=== PATIENT | female | born 1995 | race Caucasian/White ===

== ENCOUNTER 2016-03-09 13:21 | Inpatient (IN) | payer MEDICAID, OTHER ==
[~2016-03-09] VITALS: Ht 167.6 cm; Wt 75.1 kg
[~2016-03-09 13:21] MED LIST: BENZ1TA PO; CELE20TA PO; RISP-4 PO; RISP0.5T16 PO; RISP1TAB3 PO; TRAZO50TA PO
[2016-03-09 14:50] LABS: MEAN CORPUSCULAR HEMOGLOBIN 29.2 pg (27.0-33.0); MEAN CORPUSCULAR HGB CONC 33.9 g/dl (32.0-36.5); MEAN CORPUSCULAR VOLUME 86.2 fl (80.0-96.0); RED CELL DISTRIBUTION WIDTH 12.8 % (11.5-14.5); WHITE BLOOD COUNT 7.8 K/mm3 (4.0-10.0)
[2016-03-09 14:53] LABS: CONTROL LINE UCG INT CTR LINE PRESENT
[2016-03-09 15:00] LABS: AMPHETAMINES LEVEL URINE NEGATIVE (NEGATIVE); BENZODIAZEPINES URINE NEGATIVE (NEGATIVE); COCAINE METABOLITE URINE NEGATIVE (NEGATIVE); CONTROL LINE INT CTR LINE PRESENT; METHADONE URINE NEGATIVE (NEGATIVE); OPIATES URINE NEGATIVE (NEGATIVE); TRICYCLIC ANTIDEPRESS URINE NEGATIVE (NEGATIVE)
[2016-03-09 15:18] LABS: ALBUMIN 3.7 GM/DL (3.2-5.2); ALBUMIN/GLOBULIN RATIO 1.28 (1.00-1.93); ALKALINE PHOSPHATASE 69 U/L (45-117); ALT/SGPT 44 U/L (12-78); ANION GAP 9 MEQ/L (8-16); AST/SGOT 26 U/L (15-37); BILIRUBIN,DIRECT 0.1 MG/DL (0.0-0.2); BILIRUBIN,TOTAL 0.3 MG/DL (0.2-1.0); BLOOD UREA NITROGEN 10 MG/DL (7-18); CALCIUM LEVEL 8.9 MG/DL (8.5-10.1); CARBON DIOXIDE LEVEL 26 MEQ/L (21-32); CHLORIDE LEVEL 108 MEQ/L (98-107); CREATININE FOR GFR 0.86 MG/DL (0.55-1.02); GLUCOSE, FASTING 120 MG/DL (70-105); POTASSIUM SERUM 3.9 MEQ/L (3.5-5.1); SODIUM LEVEL 143 MEQ/L (136-145); TOTAL PROTEIN 6.6 GM/DL (6.4-8.2)
[2016-03-09] MEDS ORDERED: MOM 30ML SUSPENSION UDC PO PRN (16:30)
[2016-03-09] MEDS ORDERED: MAALOX 30 ML SUSP *UDC PO PRN (16:30)
[2016-03-09] MEDS ORDERED: TRAZ50TA4 PO (16:37)
[2016-03-09] MEDS ORDERED: CELE20TA PO (16:37)
[2016-03-09] MEDS ORDERED: BENZ1TA PO (16:37)
[2016-03-09] MEDS ORDERED: RISP1TAB3 PO (16:37)
--- NOTE | 2016-03-09 21:52 | EDDOCDS ---
Nurse's Notes [facility] Name: Noris Galdamez Age: 20 yrs Sex: Female : 1995 Arrival Date: 03/09/2016 Time: 13:21 Bed [facility] Private MD: NO PRIMARY PHYSICIAN, . Diagnosis: Major depressive disorder, recurrent, severe with psychotic symptoms Presentation: 03/09 13:25 Presenting complaint: Patient states: discharged from [facility] yesterday and last night srm became scared of the world. denies SI or HI. overwhelmed. I need help to transition to happy thoughts and not bad thoughts. has appt with outpt counselor on the and . Mental Health Triage Level: Level 1- Pt displays no suicidal or homicidal ideations and does not appear to be a danger to self or others. Adult Sepsis Screening: The patient does not have new or worsening altered mentation. Patient's respiratory rate is less than 22. Systolic blood pressure is greater than 100. Patient has a qSOFA score of 0- Negative Sepsis Screen. Status: Patient is not a steam service inspector or dependent. Suicide/Homicide risk assessment- The patient reports that he/she has been admitted to an inpatient mental health facility in the last 30 days. The patient reports that he/she has a recent or current history of substance abuse. The patient reports that he/she has no prior history of suicide attempt and/or organized plan. The patient reports that he/she has experienced a significant life altering event in the last 30 days. The patient reports that he/she has adequate social support. Transition of care: patient was not received from another setting of care. 13:25 Acuity: ZEINA Level 3 srm 13:25 Method Of Arrival: Walkin/Carried/Asstd srm 13:33 Mental Health Triage Level: Level 2:. srm Triage Assessment: 13:29 General: Appears in no apparent distress, Behavior is appropriate for age, cooperative. srm Pain: Denies pain. HIV screening NA for this visit Offered previously. 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 benztropine 1 mg Oral tab 1 tab 2 times per day (Last dose: 03/09/2016 07:30) 2. Celexa 20 mg Oral tab 1 tab once daily (Last dose: 03/09/2016 07:30) 3. risperidone oral 1.5mg oral 2 times per day (Last dose: 03/09/2016 07:30) 4. trazodone 50 mg Oral tab bedtime - PMHx: Depression; - PSHx: none; - Social history: Smoking status: Patient states former smoker of tobacco. No barriers to communication noted, The patient speaks fluent Gambian, Speaks appropriately for age. - Family history: Not pertinent. - : The pt / caregiver states he / she is not on anticoagulants. Home medication list is obtained from the patient. - Exposure Risk Screening:: None identified. Screenin:43 Screening information is obtained from the patient. Fall risk: No risks identified. mcp Assistance ADL's: requires no assistance with activities of daily living. Abuse/DV Screen: The patient / caregiver reports he/she is: not in a situation that causes fear, pain or injury. Nutritional screening: No deficits noted. Advance Directives: Currently, there is no health care proxy. There is no active DNR order. There is no Power of Swimming Pool Service Technician. home support is adequate. Assessment: 13:32 General: akilah FRANKLIN, mom called [facility] this am in a panic that the pt was up srm all night talking and not making a lot of sense . 14:42 General: Appears in no apparent distress, comfortable, Behavior is cooperative, mcp pleasant. Pain: Denies pain. Neurological: No deficits noted. Respiratory: Airway is patent Respiratory effort is even, unlabored. Derm: Skin is pink, warm & dry. 15:02 General: Appears in no apparent distress, Behavior is cooperative. Pain: Denies pain. ld5 Neurological: Level of Consciousness is awake, obeys commands. Respiratory: Airway is patent Respiratory effort is even, unlabored. GI: Denies nausea, vomiting. Derm: Skin is intact, Skin is dry. 16:00 General: Appears in no apparent distress. General: Pt laying quietly in bed. Visitor at ld5 bedside. Will continue to monitor. Respiratory: Airway is patent Respiratory effort is even, unlabored. 16:59 General: Appears in no apparent distress. General: Safety maintained. Will continue to ld5 monitor. Respiratory: Airway is patent Respiratory effort is even, unlabored. 17:08 General: Family members in to visit pt. ld5 18:18 General: Pt out to use bathroom. Dinner tray provided. Will continue to monitor. ld5 18:24 General: Pt requesting to use phone. Pt given phone and pt returned to room. Several ld5 minutes later, pt out of room with phone in hand. This RN asked pt if she was done with the phone. Pt stared without responding for several seconds and then stated "I can't. I just can't be done with it" and returned to room with the phone. Will monitor. 20:00 General: Appears in no apparent distress, comfortable, Behavior is cooperative, rw1 pleasant. Pain: Denies pain. Neurological: Level of Consciousness is awake, alert, obeys commands, Oriented to person, place, time. Respiratory: Airway is patent Respiratory effort is even, unlabored. Derm: Skin is pink, warm & dry. normal. 20:58 Reassessment: Patient appears in no apparent distress at this time. awake resting on rw1 stretcher, safety maintained will monitor.. 21:48 Reassessment: Patient appears in no apparent distress at this time. Patient denies pain rw1 at this time. awake resting on stretcher, safety maintained. Mental Health Eval: 16:07 Mental health consult is initiated at 15:20. Status: The patient is not a steam service inspector or dependent. 16:18 [facility] Behavioral Health: The patient is not an established patient of [facility] Behavioral Health. Referral Information: Evaluation referral is generated by a relative; mother, The patient was referred for evaluation because Pt d/c yesterday from [facility], states she feels she was discharged too soon. Pt states she "had bad thoughts, now I can only have positive thoughts, I don't want to think about the past . 16:30 Subjective: The patients chief complaint is I got out too soon. everything has been ac kind of overwhelming. Per parents, pt became agitated, felt mother was responsible for something that was supposed to occur on March 13 that won't happen now. Delusions are restoration, paranoid, Patient's mood is anxious, Hallucinations are denied. Mental Health history: psychosis, Mental Health Admissions: [facility] , d/c 03/08. Current Outpatient Mental Health Services: Psychiatrist / Agency: Cortney Dewitt at [facility] on 03-15-16. Current living environment is The patient currently lives with his / her parents, and younger siblings. Patient presents to Emergency Department with the following symptoms within the past 2 weeks: agitation, delusions of reference, depressed mood, poor concentration, poor impulse control, psychosis. Substance abuse: Pt denies. Mental status exam: Patients appearance is appropriate, Patient's behavior is cooperative, Speech is normal. 17:58 Disposition: Medically cleared for disposition by Andreas Mohamud Psychiatric Consult is ac performed by phone with Dr Andreas Mohamud. [facility] Admission Criteria: The patient is experiencing suicidal ideation. The patient displays symptoms of severe psychiatric disorder resulting in disordered behavior and significant interference with his / her ability to maintain self care. Delusions. The patient requires continuous observation and/or control to protect self, others or property. The patient's care requires a multi-modal treatment plan under close supervision and coordination due to the complexity and severity of the patient's symptoms. The patient requires administration and monitoring of psychoactive medications by skilled medical providers due to the side effects of the psychoactive medications or significant dosage adjustments. Legal Status: Patient's legal status will be Emergency admission: . [place] because patient was registered less than 6 months ago. DSM-V Differential Diagnosis: Unspecified Psychotic Disorder (F29). Narrative: Pt presented with mother requesting to be re-admitted to [facility] due to pt continuing to express delusional thinking. Pt states that "something" is going to happen on 03-13 and that she has to be out of the hospital to save the world. pt will not further elaborate. Pt states she "will only think about good thoughts in the future, not bad thoughts from the past, because the past is past and we can't change it. If I think about it, I'll start thinking bad thoughts again. Pt is poor historian, simply refuses to answer some questions, will answer other questions only minimally. Per pt's mother, pt told that she had tried to kill herself twice while she was inpatient; first by stabbing herself in the neck with a pencil, and second by strangling herself with a wet towel. Mother states this was not disclosed to [facility] staff. 18:42 Narrative: Pt states that the two incidents described above occurred one and two weeks ac prior to her hospitalization. Pt is insistent she talk to her friends, Tejal and Clayton Metzger, because otherwise the world will end on March 13. Pt's mother also states that pt has identified herself as lesbian for at least the last two years, has been sexually active, and now is telling them that she "has to have sex with Clayton or the world will end". Pt states preferred pharmacy is: [facility] in [place]. Vital Signs: 13:23 BP 143 / 78; Pulse 87; Resp 18; Temp 97.3; Pulse Ox 100% ; Weight 70.76 kg; Height 5 elp ft. 6 in. (167.64 cm); Pain 0/10; 17:18 BP 138 / 72; Pulse 81; Resp 18; Temp 97.1; Pulse Ox 100% on R/A; ld5 21:48 BP 138 / 82; Pulse 68; Resp 18; Temp 97.5(O); Pulse Ox 100% on R/A; Pain 0/10; rw1 13:23 Body Mass Index 25.18 (70.76 kg, 167.64 cm) elp Vitals: 13:23 Log In Time: March 09, 2016 at 13:21. RN notified that patient meets Red Flag elp criteria. ED Course: 13:22 Patient visited by Adrianna Romo PCA. elp 13:22 Patient moved to Waiting elp 13:23 NO PRIMARY PHYSICIAN, . is Private Physician. elp 13:24 Patient visited by Adrianna Romo PCA. elp 13:27 Triage Initiated srm 13:29 Patient moved to [facility] srm 13:32 Pebbles Mejia FNP is PHCP. le 13:42 Patient visited by Igor Ibarra. dpm 13:42 Pt greeted and oriented to ED. Patient advised of names of staff involved in care, dpm location of call velasquez, wait times and NPO status. Patient has correct armband on for positive identification. Placed in gown. Placed in psych safe attire. Bed in low position. Security observing. Property waiting for a female staff to observed pt while changing. . Door closed. Noise minimized. Visitors limited. Lights dimmed. Moved to private room. Psych Safety Check: Location: Psych Room. Visual Assessment: Cooperative. 13:46 Patient visited by Igor Ibarra. dpm 13:57 Patient visited by Pebbles Mejia FNP. le 14:03 Patient visited by Igor Ibarra. dpm 14:16 Patient visited by Igor Ibarra. dpm 14:16 Property removed, inventory done, secured in given to family member, mother. dpm 14:29 Patient visited by Igor Ibarra. dpm 14:38 Acetaminophen Level Sent. dpm 14:38 Basic Metabolic Profile Sent. dpm 14:38 Complete Blood Count Sent. dpm 14:38 Drug Eval Toxicology ED Only Sent. dpm 14:38 Ethyl Alcohol (ethanol) Sent. dpm 14:38 Liver Profile Sent. dpm 14:38 Salicylate Level Sent. dpm 14:38 Thyroid Stimulating Hormone Sent. dpm 14:38 Urine Test-In Lab Sent. dpm 14:43 Patient visited by Lauren Abbott RN. mcp 14:43 The patient / caregiver is instructed regarding the plan of care and ED course. mcp 14:43 No IV's were initiated during this patient's visit. No procedures done that require [facility] assistance. 14:58 Patient visited by Igor Ibarra. dpm 15:13 Patient visited by Igor Ibarra. dpm 15:28 Patient visited by Igor Ibarra. dpm 15:39 [facility] Payment Agreement was scanned into [employer] and attached to record. mm15 15:41 Patient visited by Cuca Klein RN. ld5 15:56 Patient visited by Igor Ibarra. dpm 16:11 Patient visited by Igor Ibarra. dpm 16:13 Patient visited by Cuca Klein RN. ld5 16:27 Patient visited by Igor Ibarra. dpm 16:40 Patient visited by Igor Ibarra. dpm 16:45 Andreas Mohamud is Hospitalizing Provider. le 17:00 Patient visited by Cuca Klein RN. ld5 17:15 Patient visited by Igor Ibarra. dpm 17:28 Patient visited by Igor Ibarra. dpm 17:45 Patient visited by Igor Ibarra. dpm 17:59 Patient visited by Igor Ibarra. dpm 17:59 [facility] Legal paperwork was scanned into [employer] and attached to record. jl 18:15 Patient visited by Igor Ibarra. dpm 18:18 Patient visited by Cuca Klein RN. ld5 18:19 [facility] Legal paperwork was scanned into [employer] and attached to record. jl 18:26 Patient visited by Cuca Klein RN. ld5 18:50 Patient visited by Igor Ibarra. dpm 19:02 Patient visited by Igor Ibarra. dpm 19:15 George Ruff LPN is Primary Nurse. rw1 19:19 Patient visited by Igor Ibarra. dpm 19:31 Patient visited by Kris Méndez. tr 19:45 Patient visited by Kris Méndez. tr 20:01 Patient visited by George Ruff LPN. rw1 20:29 Patient visited by Kris Méndez. tr 21:01 Patient visited by Kris Méndez. tr 21:15 Patient visited by Kris Méndez. tr 21:31 Patient visited by Kris Méndez. tr Attachments: 18:19 [facility] Legal paperwork jl Order Results: Lab Order: Acetaminophen Level; [facility]' 03/09/16 14:34 Test: ACETAMINOPHEN LEVEL; Value: < 2.0; Range: 10.0-30.0; Abnormal: Below low normal; Units: UG/ML; Status: F Lab Order: Basic Metabolic Profile; [facility] 03/09/16 14:34 Test: GLUCOSE, FASTING; Value: 120; Range: 70-105; Abnormal: Above high normal; Units: MG/DL; Status: F Test: BLOOD UREA NITROGEN; Value: 10; Range: 7-18; Units: MG/DL; Status: F Test: CREATININE FOR GFR; Value: 0.86; Range: 0.55-1.02; Units: MG/DL; Status: F Test: SODIUM LEVEL; Value: 143; Range: 136-145; Units: MEQ/L; Status: F Test: POTASSIUM SERUM; Value: 3.9; Range: 3.5-5.1; Units: MEQ/L; Status: F Test: CHLORIDE LEVEL; Value: 108; Range: 98-107; Abnormal: Above high normal; Units: MEQ/L; Status: F Test: CARBON DIOXIDE LEVEL; Value: 26; Range: 21-32; Units: MEQ/L; Status: F Test: ANION GAP; Value: 9; Range: 8-16; Units: MEQ/L; Status: F Test: CALCIUM LEVEL; Value: 8.9; Range: 8.5-10.1; Units: MG/DL; Status: F Lab Order: Complete Blood Count; [facility] 03/09/16 14:34 Test: WHITE BLOOD COUNT; Value: 7.8; Range: 4.0-10.0; Units: K/mm3; Status: F Test: RED BLOOD COUNT; Value: 4.51; Range: 4.00-5.40; Units: M/mm3; Status: F Test: HEMOGLOBIN; Value: 13.2; Range: 12.0-16.0; Units: g/dl; Status: F Test: HEMATOCRIT; Value: 38.9; Range: 36.0-47.0; Units: %; Status: F Test: MEAN CORPUSCULAR VOLUME; Value: 86.2; Range: 80.0-96.0; Units: fl; Status: F Test: MEAN CORPUSCULAR HEMOGLOBIN; Value: 29.2; Range: 27.0-33.0; Units: pg; Status: F Test: MEAN CORPUSCULAR HGB CONC; Value: 33.9; Range: 32.0-36.5; Units: g/dl; Status: F Test: RED CELL DISTRIBUTION WIDTH; Value: 12.8; Range: 11.5-14.5; Units: %; Status: F Test: PLATELET COUNT, AUTOMATED; Value: 272; Range: 150-450; Units: k/mm3; Status: F Lab Order: Drug Eval Toxicology ED Only; [facility] 03/09/16 14:34 Test: AMPHETAMINES LEVEL URINE; Value: NEGATIVE; Range: NEGATIVE; Status: F Test: BARBITURATES URINE; Value: NEGATIVE; Range: NEGATIVE; Status: F Test: BENZODIAZEPINES URINE; Value: NEGATIVE; Range: NEGATIVE; Status: F Test: CANNABINOIDS URINE; Value: NEGATIVE; Range: NEGATIVE; Status: F Test: COCAINE METABOLITE URINE; Value: NEGATIVE; Range: NEGATIVE; Status: F Test: METHADONE URINE; Value: NEGATIVE; Range: NEGATIVE; Status: F Test: OPIATES URINE; Value: NEGATIVE; Range: NEGATIVE; Status: F Test: TRICYCLIC ANTIDEPRESS URINE; Value: NEGATIVE; Range: NEGATIVE; Status: F Test Note: ; ALL PRESUMPTIVE POSITIVE FINDINGS ARE UNCONFIRMED NORMAL VALUES THRESHOLD IN NG/ML AMPHETAMINES 1000 METHAMPHETAMINES 1000 BARBITURATES 300 BENZODIAZEPINES 300 CANNABINOIDS (THC) 50 COCAINE METABOLITE 300 METHADONE 300 OPIATES 300 PHENCYCLIDINE 25 TRICYCLIC ANTIDEPRESSANTS 1000 RESULTS ARE FOR MEDICAL PURPOSES ONLY. ALL URINE SPECIMENS WILL BE SAVED FOR 3 DAYS. IF CONFIRMATION OF A PRESUMPTIVE POSTIVE SCREEN RESULT IS DESIRED, CALL CHEMISTRY ([phone]) AND REQUEST URINE TO BE SENT TO REFERENCE LAB. FOR A LIST OF CLOSELY RELATED COMPOUNDS PLEASE CALL THE LAB. Lab Order: Ethyl Alcohol (ethanol); [facility] 03/09/16 14:34 Test: ETHYL ALCOHOL (ETHANOL); Value: < 0.003; Range: 0.000-0.010; Units: %; Status: F Lab Order: Liver Profile; [facility] 03/09/16 14:34 Test: AST/SGOT; Value: 26; Range: 15-37; Units: U/L; Status: F Test: ALT/SGPT; Value: 44; Range: 12-78; Units: U/L; Status: F Test: ALKALINE PHOSPHATASE; Value: 69; Range: 45-117; Units: U/L; Status: F Test: BILIRUBIN,TOTAL; Value: 0.3; Range: 0.2-1.0; Units: MG/DL; Status: F Test: BILIRUBIN,DIRECT; Value: 0.1; Range: 0.0-0.2; Units: MG/DL; Status: F Test: TOTAL PROTEIN; Value: 6.6; Range: 6.4-8.2; Units: GM/DL; Status: F Test: ALBUMIN; Value: 3.7; Range: 3.2-5.2; Units: GM/DL; Status: F Test: ALBUMIN/GLOBULIN RATIO; Value: 1.28; Range: 1.00-1.93; Status: F Lab Order: Salicylate Level; [facility] 03/09/16 14:34 Test: SALICYLATE LEVEL; Value: < 1.7; Range: 5.0-30.0; Abnormal: Below low normal; Units: MG/DL; Status: F Lab Order: Thyroid Stimulating Hormone; [facility] 03/09/16 14:34 Test: THYROID STIMULATING HORMONE; Value: 0.814; Range: 0.463-3.98; Units: uIU/ML; Status: F Lab Order: Urine Test-In Lab; [facility] 03/09/16 14:34 Test: URINE PREG TEST; Value: NEGATIVE; Range: NEGATIVE; Status: F Outcome: 16:45 Decision to Hospitalize by Provider. le 17:08 No special radiology studies were completed. ld5 20:01 Discharge Assessment: patient administered narcotics -. rw1 21:48 Discharge Assessment: Patient awake, alert and oriented x 3. No cognitive and/or rw1 functional deficits noted. Patient verbalized understanding of disposition instructions. patient administered narcotics - no. The following High Risk Discharge criteria are identified: Admitted to Psych accompanied by tech, via wheelchair, with chart. Condition: stable. 21:51 Patient left the ED. rw1 Signatures: Tayla Kelly, RN RN Lauren Kaye RN Robby Espinoza mcp, PSA PSA ac Evans Storm, PSA PSA Kris Pena Robert, LPN LEATHER GOODS SALES REPRESENTATIVE rw1 Pebbles Mejia, SOCIAL WORKER PSYCHIATRIC SOCIAL WORKER PSYCHIATRIC Cuca Covarrubias RN RN ld5 Igor Ibarra dpBrodie Rincon mm15 Adrianna Romo, CITY PLANNER CITY PLANNER elp Corrections: (The following items were deleted from the chart) 17:57 16:18 Referral Information: Evaluation referral is generated by a relative; mother, The ac patient was referred for evaluation because Pt d/c yesterday from [facility], states she . ac 18:26 17:18 BP 138 / 72; Pulse 81bpm; Resp 1bpm; Pulse Ox 100% RA; Temp 97.1F; ld5 ld5 MTDD
--- NOTE | 2016-03-09 21:52 | EDDOCDS ---
Physician Documentation [facility] Name: Noris Galdamez Age: 20 yrs Sex: Female : 1995 Arrival Date: 03/09/2016 Time: 13:21 Bed BHU1 Private MD: NO PRIMARY PHYSICIAN, . Disposition: 03/09/16 16:45 Hospitalization ordered by Andreas Mohamud for Inpatient Admission. Preliminary diagnosis is Major depressive disorder, recurrent, severe with psychotic symptoms. - Bed requested for Admit. - Status is Inpatient Admission. rw1 - Condition is Stable. - Problem is an acute exacerbation. - Symptoms are unchanged. Historical: - Allergies: no known allergies; - Home Meds: 1. benztropine 1 mg Oral tab 1 tab 2 times per day (Last dose: 03/09/2016 07:30) 2. Celexa 20 mg Oral tab 1 tab once daily (Last dose: 03/09/2016 07:30) 3. risperidone oral 1.5mg oral 2 times per day (Last dose: 03/09/2016 07:30) 4. trazodone 50 mg Oral tab bedtime - PMHx: Depression; - PSHx: none; - Social history: Smoking status: Patient states former smoker of tobacco. No barriers to communication noted, The patient speaks fluent Greenlandic, Speaks appropriately for age. - Family history: Not pertinent. - : The pt / caregiver states he / she is not on anticoagulants. Home medication list is obtained from the patient. - Exposure Risk Screening:: None identified. BAR TURNER: 03/09 13:29 LMP 02/24/2016 srm Vital Signs: 13:23 BP 143 / 78; Pulse 87; Resp 18; Temp 97.3; Pulse Ox 100% ; Weight 70.76 kg / 156 lbs; elp Height 5 ft. 6 in. (167.64 cm); Pain 0/10; 17:18 BP 138 / 72; Pulse 81; Resp 18; Temp 97.1; Pulse Ox 100% on R/A; ld5 21:48 BP 138 / 82; Pulse 68; Resp 18; Temp 97.5(O); Pulse Ox 100% on R/A; Pain 0/10; rw1 13:23 Body Mass Index 25.18 (70.76 kg, 167.64 cm) elp MDM: 13:58 Consult PFS/PSA/Family Assessment Worker ordered. le 13:58 Consult PFS/PSA/Family Assessment Worker: Patient's case requires discussion with on-call le Psychiatrist ordered. 13:58 PSA/PFS to call Nursing Forest And Conservation Worker, to enter patient data on [place] Safe Act if patient le involuntarily admitted or transferred for SI or HI ordered. 13:58 Confirm accurate psychiatric medication list and times of last dosage ordered. le 13:58 Detain Pt Until Medically/PFS Cleared ordered. le 13:58 Acetaminophen Level Ordered. EDMS 13:58 Basic Metabolic Profile Ordered. EDMS 13:58 Complete Blood Count Ordered. EDMS 13:59 Drug Eval Toxicology ED Only Ordered. EDMS 13:59 Ethyl Alcohol (ethanol) Ordered. EDMS 13:59 Liver Profile Ordered. EDMS 13:59 Salicylate Level Ordered. EDMS 13:59 Thyroid Stimulating Hormone Ordered. EDMS 13:59 Urine Test-In Lab Ordered. EDMS 14:28 Financial registration complete. mm15 15:31 Acetaminophen Level Reviewed. le 15:31 Basic Metabolic Profile Reviewed. le 15:31 Salicylate Level Reviewed. le 15:31 Complete Blood Count Reviewed. le 15:31 Drug Eval Toxicology ED Only Reviewed. le 15:31 Ethyl Alcohol (ethanol) Reviewed. le 15:31 Liver Profile Reviewed. le 15:31 Thyroid Stimulating Hormone Reviewed. le 15:31 Urine Test-In Lab Reviewed. le 15:31 The patient has been medically cleared for psychiatric evaluation, admission and/or le transfer. 15:39 [facility] Payment Agreement was scanned into [employer] and attached to record. mm15 15:45 REGULAR DIET PLASTIC BELL+DIET ordered. EDMS 16:31 Admit to [facility]: ordered. EDMS 16:31 BED REQUEST+ADM ordered. EDMS 17:05 Consult PFS/PSA/Family Assessment Worker complete. ld5 17:05 Consult PFS/PSA/Family Assessment Worker: Patient's case requires discussion with on-call ld5 Psychiatrist complete. 17:05 PSA/PFS to call Nursing Forest And Conservation Worker, to enter patient data [place] if patient ld5 involuntarily admitted or transferred for SI or HI complete. 17:59 [facility] Legal paperwork was scanned into [employer] and attached to record. jl 18:19 [facility] Legal paperwork was scanned into [employer] and attached to record. jl Signatures: Dispatcher [employer] EDMS Tayla Kelly, RN RN srm Dotty, Evans, PSA PSA jl George Ruff,BRAKE REPAIR MECHANIC BRAKE REPAIR MECHANIC rw1 Pebbles Mejia, COLLECTION SYSTEMS FOREMAN COLLECTION SYSTEMS FOREMAN Cuca Covarrubias,JOSE L RN ld5 Brodie Alejandre mm15 The chart was reviewed and I authenticate all verbal orders and agree with the evaluation and treatment provided.Corrections: (The following items were deleted from the chart) 18:18 16:31 REGULAR DIET ordered. EDMS EDMS Attachments: 15:39 [facility] Payment Agreement mm15 MTDD
[2016-03-09 21:56] VITALS: BP 145/87
[2016-03-09] MEDS: BENZTROPINE 2 MG TAB PO SCH (22:34)
[2016-03-09] MEDS: risperiDONE 2 MG TAB PO SCH (22:34)
[2016-03-10 06:49] VITALS: BP 132/61
[2016-03-10] MEDS: risperiDONE 2 MG TAB PO SCH (08:15)
[2016-03-10] MEDS: CitaloPRAM (CeleXA) 20 MG TAB PO SCH (08:15)
[2016-03-10] MEDS: BENZTROPINE 2 MG TAB PO SCH ×2 (08:15→23:04)
--- NOTE | 2016-03-10 10:01 | HPEPDOC ---
Medical History and Physical Date of Admission Mar 09, 2016 at 22:06 History and Physical PCP: None ATTENDING: Dr. Bryant Hickey HPI: 20yoF admitted to [facility] for MDD, being medically examined today. No acute medical complaints today. Patient was recently discharged from [facility] following treatment for MDD from 02/28/16 -03/08/16. She has a difficult time providing history but answers all questions. She is slow to answer questions. Denies any fevers, chills, weakness, fatigue, DIEZ, CP, SOB, cough, palpitations, abdominal pain, N/V/D or changes in bowel or bladder habits. PMHx: Depression CT Brain 03/01/16 no intracranial lesion. PSHX: Denies SOCHX: Resides in: [place] Marital Status: Single Kids: None Employment: [employer] Tobacco use: Denies ETOH: Denies Illicit Drugs: Marijuana 2-3 times per week, LSD 1 in past IV Drug Use: Denies Tattoos done unprofessionally: Denies FAMHX: Mother: Alive, well Father: Alive, well Siblings: 3 sisters Alive, well Children: None Unexpected deaths due to medical reasons: None. ROS: As noted in HPI, otherwise 11pt ROS of systems reviewed and remarkable only for LMP 02/24/16 PE: GEN: 20 yo F, appears stated age. Well-nourished, well developed. No acute distress. Alert and oriented x 3. Teary at times during examination. Requesting a phone number for "Clayton". HEENT: Normocephalic, atraumatic. Pupils are equal, round, and reactive to light. Extraocular movements are intact. No nystagmus appreciated. Sclera are nonicteric. Conjunctiva without injection. Nose midline. Nasal turbinates without bogginess. EACs both patent BL. TMs both visualized and collier with good cone of light, no bulging or erythema. No facial asymmetry. Moist mucous membranes. Dentition fair. Pharynx pink and moist, no cobblestoning. Neck supple , trachea midline. No lymphadenopathy or thyromegaly appreciated. CHEST: Regular rate and rhythm, +S1, +S2 LUNGS: Clear to auscultation bilaterally. No wheezes, rales, or rhonchi. Breathing appears symmetric and easy. Patient is speaking in full sentences. No accessory muscle use. ABD: Round, soft, non-tender, non-distended. +Bowel sounds throughout. No rebound or guarding. No costovertebral angle tenderness. EXT: Pulses 2+ bilaterally dorsalis pedis and radial. No lower extremity edema appreciated. SKIN: [place], dry, warm. Capillary refill <2sec. No rashes. NEURO: Alert and oriented x 3. Cranial nerves III-XII are intact. No focal deficits appreciated. EK02/28/16 ST. Nonspecific T wave abnormalities. A&P: 20yoF admitted to [facility] for MDD 1. Psych. Plan per Psychiatry. EKG on file. 2. Follow up. No Primary Care Provider. Will attempt to establish PCP on discharge. 3. Staff member present throughout exam, Edda DOMINGO. Vital Signs Vital Signs Label Value Date Time Patient Temperature 97.3 degrees F 03/10/16 0649 Temperature Source Tympanic 03/10/16 0649 Pulse 81 03/10/16 0649 Respiratory Rate 16 bpm 03/10/16 0649 Blood Pressure Assessment 132/61 (84) 03/10/16 0649 Laboratory Data Labs 24H Laboratory Tests 2 03/09/16 14:34: Acetaminophen Level < 2.0L, Aspartate Amino Transf (AST/SGOT) 26, Alanine Aminotransferase (ALT/SGPT) 44, Alkaline Phosphatase 69, Total Bilirubin 0.3, Direct Bilirubin 0.1, Albumin 3.7, Albumin/Globulin Ratio 1.28, Anion Gap 9, Calcium Level 8.9, Ethyl Alcohol Level < 0.003, Salicylates Level < 1.7L, Thyroid Stimulating Hormone (TSH) 0.814, Total Protein 6.6, Urine Amphetamine Level NEGATIVE, Urine Benzodiazepines Screen NEGATIVE, Urine Cannabinoids NEGATIVE, Urine Cocaine Metabolite NEGATIVE, Urine Opiates Screen NEGATIVE, Urine Barbiturates, Qualitative NEGATIVE, Urine Methadone Screen NEGATIVE, Urine Test NEGATIVE, Urine Tricyclic Antidepressants NEGATIVE CBC/BMP Laboratory Tests 03/09/16 14:34 Red Blood Count 4.51, Mean Corpuscular Volume 86.2, Mean Corpuscular Hemoglobin 29.2, Mean Corpuscular Hemoglobin Concent 33.9, Red Cell Distribution Width 12.8 Home Medications Scheduled (Risperidone) 1 Mg Tab 1.5 MG PO BID Benztropine Mesylate (Benztropine Mesylate) 1 Mg Tab 1 MG PO BID Citalopram Hydrobromide (Celexa) 20 Mg Tab 20 MG PO DAILY Scheduled PRN Trazodone HCl (Trazodone HCl) 50 Mg Tab 50 MG PO QHS PRN PRN INSOMNIA Allergies Coded Allergies: No Known Allergies (Unverified , 02/26/16) Darlene Benitez Mar 10, 2016 10:01
--- NOTE | 2016-03-10 11:56 | HPEPDOC ---
[facility] History & Physical History and Physical DATE OF ADMISSION: Mar 09, 2016 at 22:06 Patient is a poor historian, some information taken from patient's 02/28/2016 admission note. CHIEF COMPLAINT: "I need to be with Clayton, we were meant to be together, we were part of the same whole." HISTORY OF THE PRESENT ILLNESS: 20-year-old woman with past history of unspecified psychotic disorder who was recently discharged from [facility] presented again one day post discharge after her parents had called the unit stating that she had been up all night, and was saying very bizarre things to them. The patient stated that after she went home she had not got to see her friends Clayton and tSeph, and this had been a major issue for her as "Clayton and I are supposed to be together, if we don't bad things are happening". The patient repeatedly states that she needs to be with her friends Clayton, but they remain to have a relationship, and that the world will end in 3 days if she is not able to be with him. When asked to provide clarification as to what will happen the patient states "bad things, but I need to stay positive and think good things". She then went on to state that if she is not able to have her desired relationship the world will be covered in a massive snowstorm. Patient repeatedly asked if this interviewer had Clayton's number so that she can call him and see him. She also referred to her parents in quotations. She did not provide collaboration as to what this meant, however collateral information from her nursing staff today indicate that she does not believe that her parents are her biological parents, but also states that she was not adopted. PAST PSYCHIATRIC HISTORY: Her only known psychiatric admission was in [facility] from 02/27/2016-03/07/2016. She denied any prior psychiatric history before that, and also denied any suicide attempts. MEDICAL HISTORY: 1. No known medical history HOME MEDICATIONS: Please see below. ALLERGIES: Please see below. FAMILY PSYCHIATRIC HISTORY: No known family psychiatric history SOCIAL HISTORY: Patient was working part-time at [employer], lives with biological parents and her siblings SUBSTANCE ABUSE HISTORY: Patient had previously reported daily cannabis use. Questionably use of LSD, patient has at times denied and confirmed use. VITAL SIGNS: Vital Signs Label Value Date Time Blood Pressure Assessment 132/61 (84) 03/10/16 0649 Respiratory Rate 16 bpm 03/10/16 0649 Pulse 81 03/10/16 0649 Patient Temperature 97.3 degrees F 03/10/1649 Temperature Source Tympanic 03/10/1649 LABORATORY DATA: No abnormal values, johns-negative on urine toxicology. See below for details REVIEW OF SYSTEMS: Patient denied feeling depressed, stated she had not slept the night before because of anxiety. Reported that her anxiety was related to her concept of needing to be with [facility], and being unable to do so. Patient vacillated, stating that she needed to be released so that she can be with [facility], but also stating that she needed to be on the unit because she felt she was helped there and that medication has helped her. Patient unable to focus to answer more questions at this time. MSE: Appearance -20 year old woman, appears stated age, fair grooming/hygiene, dressed in hospital clothes, makes erratic eye contact Behavior - psychomotor agitation present Attitude -anxious, cooperative with interview Speech - spontaneous, normal quantity, rapid rate, normal volume, abruptly articulated Thought content -denies suicidal/homicidal ideation; unable to assess, patient does not answer in regards to auditory/visual hallucination; does not appear to be responding to internal stimuli; does appear internally preoccupied Thought process -illogical, perseverative, paranoid Mood - "anxious" Affect -distraught/dysphoric, blunted in range, congruent to stated mood Cognition - grossly intact Orientation - Awake, alert, oriented x3 Insight and Judgement: Insight and judgment appear poor ASSESSMENT: Patient is a 20-year-old woman with a past diagnosis of unspecified psychotic disorder versus schizophreniform disorder. She presents with an acute decompensation one day post discharge. Patient reports that she continue to take her medication upon discharge, but became very anxious upon returning home because she was unable to see her friends that she had planned on seeing. She appears to be more frankly psychotic than she was upon discharge, and has begun voicing new delusions regarding the world ending if she is unable to form a relationship with her friends [facility]. It is unclear this time if the patient was compliant upon discharge, or if she was minimizing prior to her discharge. PROBLEM LIST: Altered thoughts Altered Perceptions Anxiety DIAGNOSES: Schizophreniform disorder MANAGEMENT PLAN: Continue current medication regimen. Will meet with family after the weekend to discuss patient's behavior at home, and current presentation. Consider switch from Risperdal to Abilify due to patient's experience of EPS at higher doses of Risperdal. Continue to monitor patient for safety, and altered thought process. ESTIMATED LENGTH OF STAY: 7-10 days. Laboratory Data 24H Labs Laboratory Tests 2 03/09/16 14:34: Acetaminophen Level < 2.0L, Aspartate Amino Transf (AST/SGOT) 26, Alanine Aminotransferase (ALT/SGPT) 44, Alkaline Phosphatase 69, Total Bilirubin 0.3, Direct Bilirubin 0.1, Albumin 3.7, Albumin/Globulin Ratio 1.28, Anion Gap 9, Calcium Level 8.9, Ethyl Alcohol Level < 0.003, Salicylates Level < 1.7L, Thyroid Stimulating Hormone (TSH) 0.814, Total Protein 6.6, Urine Amphetamine Level NEGATIVE, Urine Benzodiazepines Screen NEGATIVE, Urine Cannabinoids NEGATIVE, Urine Cocaine Metabolite NEGATIVE, Urine Opiates Screen NEGATIVE, Urine Barbiturates, Qualitative NEGATIVE, Urine Methadone Screen NEGATIVE, Urine Test NEGATIVE, Urine Tricyclic Antidepressants NEGATIVE Medications Scheduled (Risperidone) 1 Mg Tab 1.5 MG PO BID (Reported) Benztropine Mesylate (Benztropine Mesylate) 1 Mg Tab 1 MG PO BID (Reported) Citalopram Hydrobromide (Celexa) 20 Mg Tab 20 MG PO DAILY (Reported) Scheduled PRN Trazodone HCl (Trazodone HCl) 50 Mg Tab 50 MG PO QHS PRN PRN INSOMNIA (Reported ) Allergies Coded Allergies: No Known Allergies (Unverified , 02/26/16) DELIA HOWE MD Mar 10, 2016 11:56
[2016-03-10] MEDS: clonazePAM 0.5 MG TAB PO SCH ×2 (13:01→23:04)
[2016-03-10 18:00] VITALS: BP 134/88
--- NOTE | 2016-03-10 18:50 | IPN ---
DATE: 03/10/2016 SUBJECTIVE: The patient was evaluated by Dr. Manning. The patient was also evaluated by myself, but patient's care discussed. The patient on interview reports that she has had a big wakeup call with regards to her "life." She reports that she knows what she has to do. She feels that she needs to forgive herself. She reports that she is just going to be with her first family which involves Steph and Clayton. She reports they are the immediate family. She reports that she has revoked the release for her parents. The patient denies any problems with her sleep or appetite. The patient after this recent admission had been up all night, had been with her parents. She has been behaving very bizarre. Staff in the unit have also informed that she has been internally preoccupied and has been presenting very anxious. MENTAL STATUS EXAMINATION: The patient is a 20-year-old female who is dressed in hospital clothes. She appears internally preoccupied. Makes appropriate eye contact. Rapport is difficult to establish. She is very guarded. Thought content appears to be paranoid and suspicious, but is noted to be minimizing her symptoms. Fund of knowledge is very poor. Insight and judgment are limited. ASSESSMENT AND PLAN: The patient has been on risperidone 2 mg twice a day. She continues to present as very paranoid, and she has been developing extrapyramidal side effects with risperidone. In view of this, we will be gradually tapering off the risperidone and replacing it with Abilify. Risperidone has been reduced to 1 mg twice a day, and I have added Abilify 5 mg at night. I have also added clonazepam 0.5 mg twice a day to target anxiety symptoms. I have already discussed with the plastic surgery coordinator to set up for the family meeting on Sunday, but in view of patient revoking the release for any family contact, we will have to cancel the family meeting until the patient shows improvement in her insight and is willing to have a family meeting.
[2016-03-10] MEDS: risperiDONE 1 MG TAB PO SCH (23:04)
[2016-03-11 06:28] VITALS: BP 124/74
[2016-03-11] MEDS: BENZTROPINE 2 MG TAB PO SCH ×2 (08:17→22:17)
[2016-03-11] MEDS: clonazePAM 0.5 MG TAB PO SCH ×2 (08:18→22:17)
[2016-03-11] MEDS: CitaloPRAM (CeleXA) 20 MG TAB PO SCH (08:18)
[2016-03-11] MEDS: risperiDONE 1 MG TAB PO SCH ×2 (08:18→22:17)
[2016-03-11 18:00] VITALS: BP 118/78
--- NOTE | 2016-03-11 22:52 | EDDOCDS ---
Physician Documentation [facility] Name: Noris Galdamez Age: 20 yrs Sex: Female : 1995 Arrival Date: 03/09/2016 Time: 13:21 Bed BHU1 Private MD: NO PRIMARY PHYSICIAN, . Disposition: 03/09/16 16:45 Hospitalization ordered by Andreas Mohamud for Inpatient Admission. Preliminary diagnosis is Major depressive disorder, recurrent, severe with psychotic symptoms. - Bed requested for Admit. - Status is Inpatient Admission. rw1 - Condition is Stable. - Problem is an acute exacerbation. - Symptoms are unchanged. Historical: - Allergies: no known allergies; - Home Meds: 1. benztropine 1 mg Oral tab 1 tab 2 times per day (Last dose: 03/09/2016 07:30) 2. Celexa 20 mg Oral tab 1 tab once daily (Last dose: 03/09/2016 07:30) 3. risperidone oral 1.5mg oral 2 times per day (Last dose: 03/09/2016 07:30) 4. trazodone 50 mg Oral tab bedtime - PMHx: Depression; - PSHx: none; - Social history: Smoking status: Patient states former smoker of tobacco. No barriers to communication noted, The patient speaks fluent Maltese, Speaks appropriately for age. - Family history: Not pertinent. - : The pt / caregiver states he / she is not on anticoagulants. Home medication list is obtained from the patient. - Exposure Risk Screening:: None identified. COMMERCIAL MORTGAGE BROKER: 03/09 13:29 LMP 02/24/2016 srm Vital Signs: 13:23 BP 143 / 78; Pulse 87; Resp 18; Temp 97.3; Pulse Ox 100% ; Weight 70.76 kg / 156 lbs; elp Height 5 ft. 6 in. (167.64 cm); Pain 0/10; 17:18 BP 138 / 72; Pulse 81; Resp 18; Temp 97.1; Pulse Ox 100% on R/A; ld5 21:48 BP 138 / 82; Pulse 68; Resp 18; Temp 97.5(O); Pulse Ox 100% on R/A; Pain 0/10; rw1 13:23 Body Mass Index 25.18 (70.76 kg, 167.64 cm) elp MDM: 13:58 Consult PFS/PSA/Payable Processor ordered. le 13:58 Consult PFS/PSA/Payable Processor: Patient's case requires discussion with on-call le Psychiatrist ordered. 13:58 PSA/PFS to call Nursing Stretching Machine Tender Frame, to enter patient data on [place] Safe Act if patient le involuntarily admitted or transferred for SI or HI ordered. 13:58 Confirm accurate psychiatric medication list and times of last dosage ordered. le 13:58 Detain Pt Until Medically/PFS Cleared ordered. le 13:58 Acetaminophen Level Ordered. EDMS 13:58 Basic Metabolic Profile Ordered. EDMS 13:58 Complete Blood Count Ordered. EDMS 13:59 Drug Eval Toxicology ED Only Ordered. EDMS 13:59 Ethyl Alcohol (ethanol) Ordered. EDMS 13:59 Liver Profile Ordered. EDMS 13:59 Salicylate Level Ordered. EDMS 13:59 Thyroid Stimulating Hormone Ordered. EDMS 13:59 Urine Test-In Lab Ordered. EDMS 14:28 Financial registration complete. mm15 15:31 Acetaminophen Level Reviewed. le 15:31 Basic Metabolic Profile Reviewed. le 15:31 Salicylate Level Reviewed. le 15:31 Complete Blood Count Reviewed. le 15:31 Drug Eval Toxicology ED Only Reviewed. le 15:31 Ethyl Alcohol (ethanol) Reviewed. le 15:31 Liver Profile Reviewed. le 15:31 Thyroid Stimulating Hormone Reviewed. le 15:31 Urine Test-In Lab Reviewed. le 15:31 The patient has been medically cleared for psychiatric evaluation, admission and/or le transfer. 15:39 [facility] Payment Agreement was scanned into [employer] and attached to record. mm15 15:45 REGULAR DIET PLASTIC BELL+DIET ordered. EDMS 16:31 Admit to [facility]: ordered. EDMS 16:31 BED REQUEST+ADM ordered. EDMS 17:05 Consult PFS/PSA/Payable Processor complete. ld5 17:05 Consult PFS/PSA/Payable Processor: Patient's case requires discussion with on-call ld5 Psychiatrist complete. 17:05 PSA/PFS to call Nursing Stretching Machine Tender [employer], to enter patient data [place] Safe [place] if patient ld5 involuntarily admitted or transferred for SI or HI complete. 17:59 [facility] Legal paperwork was scanned into [employer] and attached to record. kayla 18:19 [facility] Legal paperwork was scanned into [employer] and attached to record. kayla 03/10 01:19 T-Sheet-- Draft Copy was scanned into [employer] [place] and attached to record. hs2 Signatures: Dispatcher [employer] EDMS Tayla Kelly, JOSE L RN srm Dotty, Evans, PSA PSA George Cote,AIRLINE PILOT FLIGHT INSTRUCTOR AIRLINE PILOT FLIGHT INSTRUCTOR rw1 Pebbles Mejia, WHEELMAN WHEELMAN Cuca Covarrubias RN RN ld5 Brodie Alejandre mm15 Donna Piña, Reg Reg hs2 The chart was reviewed and I authenticate all verbal orders and agree with the evaluation and treatment provided.Corrections: (The following items were deleted from the chart) 03/09 18:18 16:31 REGULAR DIET ordered. EDMS EDMS Attachments: 15:39 [facility] Payment Agreement mm15 03/10 01:19 T-Sheet-- Draft Copy hs2 Chart Complete MTDD
--- NOTE | 2016-03-11 22:52 | EDDOCDS ---
Nurse's Notes [facility] Name: Noris Galdamez Age: 20 yrs Sex: Female : 1995 Arrival Date: 03/09/2016 Time: 13:21 Bed [facility] Private MD: NO PRIMARY PHYSICIAN, . Diagnosis: Major depressive disorder, recurrent, severe with psychotic symptoms Presentation: 03/09 13:25 Presenting complaint: Patient states: discharged from [facility] yesterday and last night srm became scared of the world. denies SI or HI. overwhelmed. I need help to transition to happy thoughts and not bad thoughts. has appt with outpt counselor on the and . Mental Health Triage Level: Level 1- Pt displays no suicidal or homicidal ideations and does not appear to be a danger to self or others. Adult Sepsis Screening: The patient does not have new or worsening altered mentation. Patient's respiratory rate is less than 22. Systolic blood pressure is greater than 100. Patient has a qSOFA score of 0- Negative Sepsis Screen. Status: Patient is not a marketing services rep or dependent. Suicide/Homicide risk assessment- The patient reports that he/she has been admitted to an inpatient mental health facility in the last 30 days. The patient reports that he/she has a recent or current history of substance abuse. The patient reports that he/she has no prior history of suicide attempt and/or organized plan. The patient reports that he/she has experienced a significant life altering event in the last 30 days. The patient reports that he/she has adequate social support. Transition of care: patient was not received from another setting of care. 13:25 Acuity: ZEINA Level 3 srm 13:25 Method Of Arrival: Walkin/Carried/Asstd srm 13:33 Mental Health Triage Level: Level 2:. srm Triage Assessment: 13:29 General: Appears in no apparent distress, Behavior is appropriate for age, cooperative. srm Pain: Denies pain. HIV screening NA for this visit Offered previously. CATERING DIRECTOR: 13:29 LMP 02/24/2016 srm Historical: - Allergies: no known allergies; - Home Meds: 1. benztropine 1 mg Oral tab 1 tab 2 times per day (Last dose: 03/09/2016 07:30) 2. Celexa 20 mg Oral tab 1 tab once daily (Last dose: 03/09/2016 07:30) 3. risperidone oral 1.5mg oral 2 times per day (Last dose: 03/09/2016 07:30) 4. trazodone 50 mg Oral tab bedtime - PMHx: Depression; - PSHx: none; - Social history: Smoking status: Patient states former smoker of tobacco. No barriers to communication noted, The patient speaks fluent Kittitian, Speaks appropriately for age. - Family history: Not pertinent. - : The pt / caregiver states he / she is not on anticoagulants. Home medication list is obtained from the patient. - Exposure Risk Screening:: None identified. Screenin:43 Screening information is obtained from the patient. Fall risk: No risks identified. mcp Assistance ADL's: requires no assistance with activities of daily living. Abuse/DV Screen: The patient / caregiver reports he/she is: not in a situation that causes fear, pain or injury. Nutritional screening: No deficits noted. Advance Directives: Currently, there is no health care proxy. There is no active DNR order. There is no Power of Order Manager. home support is adequate. Assessment: 13:32 General: akilah FRANKLIN, mom called [facility] this am in a panic that the pt was up srm all night talking and not making a lot of sense . 14:42 General: Appears in no apparent distress, comfortable, Behavior is cooperative, mcp pleasant. Pain: Denies pain. Neurological: No deficits noted. Respiratory: Airway is patent Respiratory effort is even, unlabored. Derm: Skin is pink, warm & dry. 15:02 General: Appears in no apparent distress, Behavior is cooperative. Pain: Denies pain. ld5 Neurological: Level of Consciousness is awake, obeys commands. Respiratory: Airway is patent Respiratory effort is even, unlabored. GI: Denies nausea, vomiting. Derm: Skin is intact, Skin is dry. 16:00 General: Appears in no apparent distress. General: Pt laying quietly in bed. Visitor at ld5 bedside. Will continue to monitor. Respiratory: Airway is patent Respiratory effort is even, unlabored. 16:59 General: Appears in no apparent distress. General: Safety maintained. Will continue to ld5 monitor. Respiratory: Airway is patent Respiratory effort is even, unlabored. 17:08 General: Family members in to visit pt. ld5 18:18 General: Pt out to use bathroom. Dinner tray provided. Will continue to monitor. ld5 18:24 General: Pt requesting to use phone. Pt given phone and pt returned to room. Several ld5 minutes later, pt out of room with phone in hand. This RN asked pt if she was done with the phone. Pt stared without responding for several seconds and then stated "I can't. I just can't be done with it" and returned to room with the phone. Will monitor. 20:00 General: Appears in no apparent distress, comfortable, Behavior is cooperative, rw1 pleasant. Pain: Denies pain. Neurological: Level of Consciousness is awake, alert, obeys commands, Oriented to person, place, time. Respiratory: Airway is patent Respiratory effort is even, unlabored. Derm: Skin is pink, warm & dry. normal. 20:58 Reassessment: Patient appears in no apparent distress at this time. awake resting on rw1 stretcher, safety maintained will monitor.. 21:48 Reassessment: Patient appears in no apparent distress at this time. Patient denies pain rw1 at this time. awake resting on stretcher, safety maintained. Mental Health Eval: 16:07 Mental health consult is initiated at 15:20. Status: The patient is not a marketing services rep or dependent. 16:18 [facility] Behavioral Health: The patient is not an established patient of [facility] Behavioral Health. Referral Information: Evaluation referral is generated by a relative; mother, The patient was referred for evaluation because Pt d/c yesterday from [facility], states she feels she was discharged too soon. Pt states she "had bad thoughts, now I can only have positive thoughts, I don't want to think about the past . 16:30 Subjective: The patients chief complaint is I got out too soon. everything has been ac kind of overwhelming. Per parents, pt became agitated, felt mother was responsible for something that was supposed to occur on March 13 that won't happen now. Delusions are rastafarian, paranoid, Patient's mood is anxious, Hallucinations are denied. Mental Health history: psychosis, Mental Health Admissions: [facility] , d/c 03/08. Current Outpatient Mental Health Services: Psychiatrist / Agency: Cortney Dewitt at [facility] on 03-15-16. Current living environment is The patient currently lives with his / her parents, and younger siblings. Patient presents to Emergency Department with the following symptoms within the past 2 weeks: agitation, delusions of reference, depressed mood, poor concentration, poor impulse control, psychosis. Substance abuse: Pt denies. Mental status exam: Patients appearance is appropriate, Patient's behavior is cooperative, Speech is normal. 17:58 Disposition: Medically cleared for disposition by Andreas Mohamud Psychiatric Consult is ac performed by phone with Dr Andreas Mohamud. [facility] Admission Criteria: The patient is experiencing suicidal ideation. The patient displays symptoms of severe psychiatric disorder resulting in disordered behavior and significant interference with his / her ability to maintain self care. Delusions. The patient requires continuous observation and/or control to protect self, others or property. The patient's care requires a multi-modal treatment plan under close supervision and coordination due to the complexity and severity of the patient's symptoms. The patient requires administration and monitoring of psychoactive medications by skilled medical providers due to the side effects of the psychoactive medications or significant dosage adjustments. Legal Status: Patient's legal status will be Emergency admission: . [place] because patient was registered less than 6 months ago. DSM-V Differential Diagnosis: Unspecified Psychotic Disorder (F29). Narrative: Pt presented with mother requesting to be re-admitted to [facility] due to pt continuing to express delusional thinking. Pt states that "something" is going to happen on 03-13 and that she has to be out of the hospital to save the world. pt will not further elaborate. Pt states she "will only think about good thoughts in the future, not bad thoughts from the past, because the past is past and we can't change it. If I think about it, I'll start thinking bad thoughts again. Pt is poor historian, simply refuses to answer some questions, will answer other questions only minimally. Per pt's mother, pt told that she had tried to kill herself twice while she was inpatient; first by stabbing herself in the neck with a pencil, and second by strangling herself with a wet towel. Mother states this was not disclosed to [facility] staff. 18:42 Narrative: Pt states that the two incidents described above occurred one and two weeks ac prior to her hospitalization. Pt is insistent she talk to her friends, Tejal and Clayton Metzger, because otherwise the world will end on March 13. Pt's mother also states that pt has identified herself as lesbian for at least the last two years, has been sexually active, and now is telling them that she "has to have sex with Clayton or the world will end". Pt states preferred pharmacy is: [facility] in [place]. 03/10 09:09 Insurance Pre-Certification: Not Required, Per [facility]. pt. has straight Medicaid due to ms her age.. 10:49 Insurance Pre-Certification: A second call to [facility] resulted in worker stating that pt. ms does have current [facility] coverage and managed through [employer]. Admission was approved by Ellyn for 7 days with review on 03/15 with Mindy Gray at [phone]. Authorization # [id number].. Vital Signs: 03/09 13:23 BP 143 / 78; Pulse 87; Resp 18; Temp 97.3; Pulse Ox 100% ; Weight 70.76 kg; Height 5 elp ft. 6 in. (167.64 cm); Pain 0/10; 17:18 BP 138 / 72; Pulse 81; Resp 18; Temp 97.1; Pulse Ox 100% on R/A; ld5 21:48 BP 138 / 82; Pulse 68; Resp 18; Temp 97.5(O); Pulse Ox 100% on R/A; Pain 0/10; rw1 13:23 Body Mass Index 25.18 (70.76 kg, 167.64 cm) elp Vitals: 13:23 Log In Time: March 09, 2016 at 13:21. RN notified that patient meets Red Flag elp criteria. ED Course: 13:22 Patient visited by Adrianna Romo PCA. elp 13:22 Patient moved to Waiting elp 13:23 NO PRIMARY PHYSICIAN, . is Private Physician. elp 13:24 Patient visited by Adrianna Romo PCA. elp 13:27 Triage Initiated srm 13:29 Patient moved to [facility] srm 13:32 Pebbles Mejia, TAD is PHCP. le 13:42 Patient visited by Igor Ibarra. dpm 13:42 Pt greeted and oriented to ED. Patient advised of names of staff involved in care, dpm location of call velasquez, wait times and NPO status. Patient has correct armband on for positive identification. Placed in gown. Placed in psych safe attire. Bed in low position. Security observing. Property waiting for a female staff to observed pt while changing. . Door closed. Noise minimized. Visitors limited. Lights dimmed. Moved to private room. Psych Safety Check: Location: Psych Room. Visual Assessment: Cooperative. 13:46 Patient visited by Igor Ibarra. dpm 13:57 Patient visited by Pebbles Mejia FNP. le 14:03 Patient visited by Igor Ibarra. dpm 14:16 Patient visited by Igor Ibarra. dpm 14:16 Property removed, inventory done, secured in given to family member, mother. dpm 14:29 Patient visited by Igor Ibarra. dpm 14:38 Acetaminophen Level Sent. dpm 14:38 Basic Metabolic Profile Sent. dpm 14:38 Complete Blood Count Sent. dpm 14:38 Drug Eval Toxicology ED Only Sent. dpm 14:38 Ethyl Alcohol (ethanol) Sent. dpm 14:38 Liver Profile Sent. dpm 14:38 Salicylate Level Sent. dpm 14:38 Thyroid Stimulating Hormone Sent. dpm 14:38 Urine Test-In Lab Sent. dpm 14:43 Patient visited by Lauren Abbott RN. mcp 14:43 The patient / caregiver is instructed regarding the plan of care and ED course. mcp 14:43 No IV's were initiated during this patient's visit. No procedures done that require mcp assistance. 14:58 Patient visited by Igor Ibarra. dpm 15:13 Patient visited by Igor Ibarra. dpm 15:28 Patient visited by Igor Ibarra. dpm 15:39 [facility] [place] Payment Agreement was scanned into [employer] and attached to record. mm15 15:41 Patient visited by Cuca Klein RN. ld5 15:56 Patient visited by Igor Ibarra. dpm 16:11 Patient visited by Igor Ibarra. dpm 16:13 Patient visited by Cuca Klein,JOSE L. ld5 16:27 Patient visited by Igor Ibarra. dpm 16:40 Patient visited by Igor Ibarra. dpm 16:45 Andreas Mohamud is Hospitalizing Provider. le 17:00 Patient visited by Cuca Klein RN. ld5 17:15 Patient visited by Igor Ibarra. dpm 17:28 Patient visited by Igor Ibarra. dpm 17:45 Patient visited by Igor Ibarra. dpm 17:59 Patient visited by Igor Ibarra. dpm 17:59 [facility] Legal paperwork was scanned into [employer] and attached to record. jl 18:15 Patient visited by Igor Ibarra. dpm 18:18 Patient visited by Cuca Klein RN. ld5 18:19 [facility] Legal paperwork was scanned into [employer] and attached to record. jl 18:26 Patient visited by Cuca Klein RN. ld5 18:50 Patient visited by Igor Ibarra. dpm 19:02 Patient visited by Igor Ibarra. dpm 19:15 George Ruff LPN is Primary Nurse. rw1 19:19 Patient visited by Igor Ibarra. dpm 19:31 Patient visited by Kris Méndez. tr 19:45 Patient visited by Kris Méndez. tr 20:01 Patient visited by George Ruff LPN. rw1 20:29 Patient visited by Kris Méndez. tr 21:01 Patient visited by Kris Méndez. tr 21:15 Patient visited by Kris Méndez. tr 21:31 Patient visited by Kris Méndez. tr 03/10 01:19 T-Sheet-- Draft Copy was scanned into [employer] and attached to record. hs2 Attachments: 18:19 [facility] Legal paperwork jl Order Results: Lab Order: Acetaminophen Level; SPEC'M 03/09/16 14:34 Test: ACETAMINOPHEN LEVEL; Value: < 2.0; Range: 10.0-30.0; Abnormal: Below low normal; Units: UG/ML; Status: F Lab Order: Basic Metabolic Profile; SPEC'M 03/09/16 14:34 Test: GLUCOSE, FASTING; Value: 120; Range: 70-105; Abnormal: Above high normal; Units: MG/DL; Status: F Test: BLOOD UREA NITROGEN; Value: 10; Range: 7-18; Units: MG/DL; Status: F Test: CREATININE FOR GFR; Value: 0.86; Range: 0.55-1.02; Units: MG/DL; Status: F Test: SODIUM LEVEL; Value: 143; Range: 136-145; Units: MEQ/L; Status: F Test: POTASSIUM SERUM; Value: 3.9; Range: 3.5-5.1; Units: MEQ/L; Status: F Test: CHLORIDE LEVEL; Value: 108; Range: 98-107; Abnormal: Above high normal; Units: MEQ/L; Status: F Test: CARBON DIOXIDE LEVEL; Value: 26; Range: 21-32; Units: MEQ/L; Status: F Test: ANION GAP; Value: 9; Range: 8-16; Units: MEQ/L; Status: F Test: CALCIUM LEVEL; Value: 8.9; Range: 8.5-10.1; Units: MG/DL; Status: F Lab Order: Complete Blood Count; SPEC'M 03/09/16 14:34 Test: WHITE BLOOD COUNT; Value: 7.8; Range: 4.0-10.0; Units: K/mm3; Status: F Test: RED BLOOD COUNT; Value: 4.51; Range: 4.00-5.40; Units: M/mm3; Status: F Test: HEMOGLOBIN; Value: 13.2; Range: 12.0-16.0; Units: g/dl; Status: F Test: HEMATOCRIT; Value: 38.9; Range: 36.0-47.0; Units: %; Status: F Test: MEAN CORPUSCULAR VOLUME; Value: 86.2; Range: 80.0-96.0; Units: fl; Status: F Test: MEAN CORPUSCULAR HEMOGLOBIN; Value: 29.2; Range: 27.0-33.0; Units: pg; Status: F Test: MEAN CORPUSCULAR HGB CONC; Value: 33.9; Range: 32.0-36.5; Units: g/dl; Status: F Test: RED CELL DISTRIBUTION WIDTH; Value: 12.8; Range: 11.5-14.5; Units: %; Status: F Test: PLATELET COUNT, AUTOMATED; Value: 272; Range: 150-450; Units: k/mm3; Status: F Lab Order: Drug Eval Toxicology ED Only; SPEC'M 12/15/16 14:34 Test: AMPHETAMINES LEVEL URINE; Value: NEGATIVE; Range: NEGATIVE; Status: F Test: BARBITURATES URINE; Value: NEGATIVE; Range: NEGATIVE; Status: F Test: BENZODIAZEPINES URINE; Value: NEGATIVE; Range: NEGATIVE; Status: F Test: CANNABINOIDS URINE; Value: NEGATIVE; Range: NEGATIVE; Status: F Test: COCAINE METABOLITE URINE; Value: NEGATIVE; Range: NEGATIVE; Status: F Test: METHADONE URINE; Value: NEGATIVE; Range: NEGATIVE; Status: F Test: OPIATES URINE; Value: NEGATIVE; Range: NEGATIVE; Status: F Test: TRICYCLIC ANTIDEPRESS URINE; Value: NEGATIVE; Range: NEGATIVE; Status: F Test Note: ; ALL PRESUMPTIVE POSITIVE FINDINGS ARE UNCONFIRMED NORMAL VALUES THRESHOLD IN NG/ML AMPHETAMINES 1000 METHAMPHETAMINES 1000 BARBITURATES 300 BENZODIAZEPINES 300 CANNABINOIDS (THC) 50 COCAINE METABOLITE 300 METHADONE 300 OPIATES 300 PHENCYCLIDINE 25 TRICYCLIC ANTIDEPRESSANTS 1000 RESULTS ARE FOR MEDICAL PURPOSES ONLY. ALL URINE SPECIMENS WILL BE SAVED FOR 3 DAYS. IF CONFIRMATION OF A PRESUMPTIVE POSTIVE SCREEN RESULT IS DESIRED, CALL CHEMISTRY ([phone]) AND REQUEST URINE TO BE SENT TO REFERENCE LAB. FOR A LIST OF CLOSELY RELATED COMPOUNDS PLEASE CALL THE LAB. Lab Order: Ethyl Alcohol (ethanol); SPEC'M 03/09/16 14:34 Test: ETHYL ALCOHOL (ETHANOL); Value: < 0.003; Range: 0.000-0.010; Units: %; Status: F Lab Order: Liver Profile; SPEC'M 03/09/16 14:34 Test: AST/SGOT; Value: 26; Range: 15-37; Units: U/L; Status: F Test: ALT/SGPT; Value: 44; Range: 12-78; Units: U/L; Status: F Test: ALKALINE PHOSPHATASE; Value: 69; Range: 45-117; Units: U/L; Status: F Test: BILIRUBIN,TOTAL; Value: 0.3; Range: 0.2-1.0; Units: MG/DL; Status: F Test: BILIRUBIN,DIRECT; Value: 0.1; Range: 0.0-0.2; Units: MG/DL; Status: F Test: TOTAL PROTEIN; Value: 6.6; Range: 6.4-8.2; Units: GM/DL; Status: F Test: ALBUMIN; Value: 3.7; Range: 3.2-5.2; Units: GM/DL; Status: F Test: ALBUMIN/GLOBULIN RATIO; Value: 1.28; Range: 1.00-1.93; Status: F Lab Order: Salicylate Level; SPEC'M 03/09/16 14:34 Test: SALICYLATE LEVEL; Value: < 1.7; Range: 5.0-30.0; Abnormal: Below low normal; Units: MG/DL; Status: F Lab Order: Thyroid Stimulating Hormone; SPEC'M 03/09/16 14:34 Test: THYROID STIMULATING HORMONE; Value: 0.814; Range: 0.463-3.98; Units: uIU/ML; Status: F Lab Order: Urine Test-In Lab; SPEC'M 03/09/16 14:34 Test: URINE PREG TEST; Value: NEGATIVE; Range: NEGATIVE; Status: F Outcome: 03/09 16:45 Decision to Hospitalize by Provider. le 17:08 No special radiology studies were completed. ld5 20:01 Discharge Assessment: patient administered narcotics -. rw1 21:48 Discharge Assessment: Patient awake, alert and oriented x 3. No cognitive and/or rw1 functional deficits noted. Patient verbalized understanding of disposition instructions. patient administered narcotics - no. The following High Risk Discharge criteria are identified: Admitted to Psych accompanied by tech, via wheelchair, with chart. Condition: stable. 21:51 Patient left the ED. rw1 Signatures: Tayla Kelly RN RN srm Peters, Mary, Robby Espinoza RN, mcp, RIGOBERTO PSA ac Evans Storm, PSA PSA Lauren Chicas, PSA PSA ms Dev, George Frey,STRETCHER AND DRIER STRETCHER AND DRIER rw1 Pebbles Mejia, PLANT AND MAINTENANCE TECHNICIAN PLANT AND MAINTENANCE TECHNICIAN Cuca Covarrubias RN RN ld5 Igor Ibarra dpm, Marlynn mm15 Adrianna Romo PCA PCA elp Stanton, Hillary, Reg Reg hs2 Corrections: (The following items were deleted from the chart) 17:57 16:18 Referral Information: Evaluation referral is generated by a relative; mother, The ac patient was referred for evaluation because Pt d/c yesterday from [facility], states she . ac 18:26 17:18 BP 138 / 72; Pulse 81bpm; Resp 1bpm; Pulse Ox 100% RA; Temp 97.1F; ld5 ld5 Chart Complete MTDD
--- NOTE | 2016-03-11 22:52 | EDDOCDS ---
Physician Documentation [facility] Name: Noris Galdamez Age: 20 yrs Sex: Female : 1995 Arrival Date: 03/09/2016 Time: 13:21 Bed BHU1 Private MD: NO PRIMARY PHYSICIAN, . Disposition: 03/09/16 16:45 Hospitalization ordered by Andreas Mohamud for Inpatient Admission. Preliminary diagnosis is Major depressive disorder, recurrent, severe with psychotic symptoms. - Bed requested for Admit. - Status is Inpatient Admission. rw1 - Condition is Stable. - Problem is an acute exacerbation. - Symptoms are unchanged. Historical: - Allergies: no known allergies; - Home Meds: 1. benztropine 1 mg Oral tab 1 tab 2 times per day (Last dose: 03/09/2016 07:30) 2. Celexa 20 mg Oral tab 1 tab once daily (Last dose: 03/09/2016 07:30) 3. risperidone oral 1.5mg oral 2 times per day (Last dose: 03/09/2016 07:30) 4. trazodone 50 mg Oral tab bedtime - PMHx: Depression; - PSHx: none; - Social history: Smoking status: Patient states former smoker of tobacco. No barriers to communication noted, The patient speaks fluent Kiswahili, Speaks appropriately for age. - Family history: Not pertinent. - : The pt / caregiver states he / she is not on anticoagulants. Home medication list is obtained from the patient. - Exposure Risk Screening:: None identified. MANAGER RECRUITMENT: 03/09 13:29 LMP 02/24/2016 srm Vital Signs: 13:23 BP 143 / 78; Pulse 87; Resp 18; Temp 97.3; Pulse Ox 100% ; Weight 70.76 kg / 156 lbs; elp Height 5 ft. 6 in. (167.64 cm); Pain 0/10; 17:18 BP 138 / 72; Pulse 81; Resp 18; Temp 97.1; Pulse Ox 100% on R/A; ld5 21:48 BP 138 / 82; Pulse 68; Resp 18; Temp 97.5(O); Pulse Ox 100% on R/A; Pain 0/10; rw1 13:23 Body Mass Index 25.18 (70.76 kg, 167.64 cm) elp MDM: 13:58 Consult PFS/PSA/Logistics Clerk ordered. le 13:58 Consult PFS/PSA/Logistics Clerk: Patient's case requires discussion with on-call le Psychiatrist ordered. 13:58 PSA/PFS to call Nursing Parts Person, to enter patient data on [place] Safe [place] if patient le involuntarily admitted or transferred for SI or HI ordered. 13:58 Confirm accurate psychiatric medication list and times of last dosage ordered. le 13:58 Detain Pt Until Medically/PFS Cleared ordered. le 13:58 Acetaminophen Level Ordered. EDMS 13:58 Basic Metabolic Profile Ordered. EDMS 13:58 Complete Blood Count Ordered. EDMS 13:59 Drug Eval Toxicology ED Only Ordered. EDMS 13:59 Ethyl Alcohol (ethanol) Ordered. EDMS 13:59 Liver Profile Ordered. EDMS 13:59 Salicylate Level Ordered. EDMS 13:59 Thyroid Stimulating Hormone Ordered. EDMS 13:59 Urine Test-In Lab Ordered. EDMS 14:28 Financial registration complete. mm15 15:31 Acetaminophen Level Reviewed. le 15:31 Basic Metabolic Profile Reviewed. le 15:31 Salicylate Level Reviewed. le 15:31 Complete Blood Count Reviewed. le 15:31 Drug Eval Toxicology ED Only Reviewed. le 15:31 Ethyl Alcohol (ethanol) Reviewed. le 15:31 Liver Profile Reviewed. le 15:31 Thyroid Stimulating Hormone Reviewed. le 15:31 Urine Test-In Lab Reviewed. le 15:31 The patient has been medically cleared for psychiatric evaluation, admission and/or le transfer. 15:39 [facility] Payment Agreement was scanned into [employer] and attached to record. mm15 15:45 REGULAR DIET PLASTIC BELL+DIET ordered. EDMS 16:31 Admit to [facility]: ordered. EDMS 16:31 BED REQUEST+ADM ordered. EDMS 17:05 Consult PFS/PSA/Logistics Clerk complete. ld5 17:05 Consult PFS/PSA/Logistics Clerk: Patient's case requires discussion with on-call ld5 Psychiatrist complete. 17:05 PSA/PFS to call Nursing Parts Person, to enter patient data [place] if patient ld5 involuntarily admitted or transferred for SI or HI complete. 17:59 [facility] Legal paperwork was scanned into [employer] and attached to record. kayla 18:19 [facility] Legal paperwork was scanned into [employer] and attached to record. kayla 03/10 01:19 T-Sheet-- Draft Copy was scanned into [employer] and attached to record. hs2 Signatures: Dispatcher [employer] EDMS Tayla Kelly, JOSE L RN srm Dotty, Evans, PSA PSA George Cote,UPHOLSTERER APPRENTICE UPHOLSTERER APPRENTICE rw1 Pebbles Mejia, ORTHOTIC ASSISTANT ORTHOTIC ASSISTANT Cuca Covarrubias RN RN ld5 Brodie Alejandre mm15 Donna Piña, Reg Reg hs2 The chart was reviewed and I authenticate all verbal orders and agree with the evaluation and treatment provided.Corrections: (The following items were deleted from the chart) 03/09 18:18 16:31 REGULAR DIET ordered. EDMS EDMS Attachments: 15:39 [facility] Payment Agreement mm15 03/10 01:19 T-Sheet-- Draft Copy hs2 Chart Complete MTDD
[2016-03-12 06:39] VITALS: BP 108/63
[2016-03-12] MEDS: BENZTROPINE 2 MG TAB PO SCH ×2 (09:20→21:48)
[2016-03-12] MEDS: clonazePAM 0.5 MG TAB PO SCH ×2 (09:20→21:48)
[2016-03-12] MEDS: risperiDONE 1 MG TAB PO SCH ×2 (09:20→21:48)
[2016-03-12] MEDS: CitaloPRAM (CeleXA) 20 MG TAB PO SCH (09:20)
--- NOTE | 2016-03-12 13:03 | IPN ---
DATE: 03/11/2016 VITAL SIGNS: Temperature 98.2 tympanic, pulse 116, respiratory rate 24, blood pressure 124/74. MENTAL STATUS EXAMINATION: The patient was interviewed. She seems relaxed and somewhat anxious, but generally doing better. There does not seem to be any hallucination or illusions that she is admitting to today, so it appears that the transition to Abilify from Risperdal is going very well thus far. The patient is fully oriented. Insight and judgment are impaired. DIAGNOSTIC IMPRESSION: Remains schizophreniform disorder. PLAN: Continue to monitor the movement to Abilify from Risperdal.
[2016-03-12 18:00] VITALS: BP 118/82
[2016-03-13 06:26] VITALS: BP 110/78
[2016-03-13] MEDS: clonazePAM 0.5 MG TAB PO SCH ×2 (08:59→21:45)
[2016-03-13] MEDS: risperiDONE 1 MG TAB PO SCH (08:59)
[2016-03-13] MEDS: BENZTROPINE 2 MG TAB PO SCH (08:59)
[2016-03-13] MEDS: CitaloPRAM (CeleXA) 20 MG TAB PO SCH (08:59)
--- NOTE | 2016-03-13 16:16 | IPN ---
DATE: 03/13/2016 VITAL SIGNS: Temperature 99.1 tympanic, pulse 92, respiratory rate 16, blood pressure 108/63. MENTAL STATUS EXAMINATION: The patient today continues to improve. She is smiling and seems relaxed and happy. She denies current hallucinations or suicidal ideation. She rates her depression and anxiety both 0/10. The patient is fully oriented, and insight and judgment are improving on a daily basis. IMPRESSION: Remains schizophreniform psychosis. PLAN: The patient continues her migration fro Risperdal to [facility], currently taking 1 mg of Risperdal twice a day and Abilify is 5 mg at bedtime. Her gait is normal and there are no signs of extrapyramidal side effects (EPS) bothering her. Citalopram remains at 20 mg, Klonopin is 0.5 mg twice a day, and Cogentin is 2 mg twice a day. Continue migration and monitor her response.
[2016-03-13 18:00] VITALS: BP 120/81
--- NOTE | 2016-03-13 20:55 | IPN ---
DATE: 03/13/2016 HISTORY: Patient was seen today. Records from the weekend were reviewed. Patient was interviewed on her own. She reports that she is feeling better. She reports less side effects with the medications. Reports no stiffness. She denies any auditory or visual hallucinations, but on further interviewing the patient she is noted to be acutely paranoid. During the discussion about the need for bringing her parents in for a meeting she became very suspicious. She feels "you are tricking me." Staff reported that she has also been religiously preoccupied. She reports that she does not think her parents are real. She went on to say "they are not my parents." She wants to meet up with her friend, Ellen. She wants to have a meeting with her friend Ellen today and be discharged. Review of care activity shows that she has had difficulty talking to people about the pain that she has inside. CURRENT MEDICATIONS: - risperidone 1 mg twice a day - Abilify 5 mg nightly - Cogentin 2 mg twice a day - clonazepam 0.5 mg twice a day VITAL SIGNS: Temperature 97.6, pulse 90 per minute, respiratory rate 16 per minute, blood pressure 110/78. MENTAL STATUS EXAMINATION: Patient is a 20-year-old female who was initially cooperative and engaged well in the interview. On further talking about her family she became acutely paranoid, anxious, appeared internally preoccupied. She is also guarded. Denies any auditory or visual hallucinations. Fund of knowledge is poor. Insight and judgment is very limited currently. ASSESSMENT: Patient continues to present as acutely paranoid and she needs inpatient level of care for safety and stabilization. MANAGEMENT PLAN: I have increased Abilify to 10 mg at night and reduced the risperidone to 0.5 mg twice a day. I have also reduced the Cogentin to 0.5 mg twice a day. Continue with clonazepam at 0.5 mg twice a day. She has Ativan as needed for anxiety and agitation. Patient's care was discussed with the coordinator cardiopulmonary services as well.
[2016-03-13] MEDS: BENZTROPINE 0.5 MG TAB PO SCH (21:45)
[2016-03-13] MEDS: risperiDONE 0.5 MG TAB PO SCH (21:46)
[2016-03-13] MEDS: traZODone 50 MG TAB PO PRN (21:46)
[2016-03-14 06:00] VITALS: BP 115/65
[2016-03-14] MEDS: risperiDONE 0.5 MG TAB PO SCH (09:26)
[2016-03-14] MEDS: CitaloPRAM (CeleXA) 20 MG TAB PO SCH (09:26)
[2016-03-14] MEDS: clonazePAM 0.5 MG TAB PO SCH ×2 (09:27→21:57)
[2016-03-14] MEDS: BENZTROPINE 0.5 MG TAB PO SCH (09:27)
[2016-03-14 18:20] VITALS: BP 134/76
[2016-03-14] MEDS: traZODone 50 MG TAB PO PRN (21:57)
[2016-03-15 06:22] VITALS: BP 119/63
[2016-03-15] MEDS: clonazePAM 0.5 MG TAB PO SCH ×2 (08:05→21:00)
[2016-03-15] MEDS: CitaloPRAM (CeleXA) 20 MG TAB PO SCH (08:05)
[2016-03-15] MEDS: DIVALPROEX 250 MG TAB PO SCH ×2 (10:31→21:00)
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
[2016-03-15 18:00] VITALS: BP 119/64
[2016-03-16] MEDS: LORazepam 1 MG TAB PO PRN (06:26)
[2016-03-16 06:38] VITALS: BP 140/66
[2016-03-16] MEDS: DIVALPROEX 250 MG TAB PO SCH (08:21)
[2016-03-16] MEDS: clonazePAM 0.5 MG TAB PO SCH ×2 (08:21→20:29)
--- NOTE | 2016-03-16 13:55 | IPN ---
DATE: 03/15/2016 HISTORY: The patient is seen today. She continues to present with acute psychotic symptoms. She was tearful, emotionally labile. Reports that God is in touch with her and she can feel God here. She reports that God communicates to her and she is able to communicate to Him. She reports that she reaches out to God through prayers and feels his presence in the hospital. She reports that she also gets signs from behavior of other patients and the staff. She reports that if she does well, everybody else is happy. The patient slept 7 hours last night. She has taken trazodone at night. VITAL SIGNS: Temperature 99.9, pulse 110 per minute, respiratory rate 16 per minute, blood pressure 119/63. REVIEW OF SYSTEMS: Normal gait. No stiffness. MENTAL STATUS EXAMINATION: The patient is a 20-year-old female who is dressed in hospital clothes. She is noted to be internally preoccupied, not coherent and goal directed. Noted to be paranoid. Delusions of grandiose in nature. Fund of knowledge is poor. Insight and judgment is limited. ASSESSMENT: The patient's presentation is suggestive of bipolar affective disorder in a mixed state. She continues to need inpatient level of care. MANAGEMENT PLAN: Continue clonazepam 0.5 mg twice a day. I have added Depakote 250 mg twice a day. Abilify 15 mg at night will be continued. Maintain safety precautions. Will continue to encourage the patient to participate in the activities in the unit.
[2016-03-16 18:00] VITALS: BP 116/56
[2016-03-16] MEDS ORDERED: DIVALPROEX 500 MG TAB PO SCH (21:00)
[2016-03-17 06:29] VITALS: BP 124/63
[2016-03-17] MEDS ORDERED: DIVALPROEX 250 MG TAB PO SCH (09:00)
[2016-03-17] MEDS: clonazePAM 0.5 MG TAB PO SCH ×2 (09:06→20:16)
--- NOTE | 2016-03-17 09:38 | IPN ---
DATE: 03/16/2016 HISTORY: The patient was seen today. She was seen with staff nurse, Argentina Moran. THe patient reports that she needs to be out, it is very important because 03/21/2016 something bad is going to happen and everybody is in danger. She feels that she is closely related to God. She reports that the Devil is going to come in a ship and destroy everyone. The patient continues to want to be discharged. She was tearful and emotionally labile during the interview. CURRENT MEDICATIONS: - Depakote 250 mg twice a day - Abilify 15 mg at night (the patient has refused Abilify last night) VITAL SIGNS: Temperature 96.3, pulse 98 per minute, respiratory rate 18 per minute, blood pressure 140/66. MENTAL STATUS EXAMINATION: The patient is a 20-year-old female who is dressed in hospital clothes. She is disheveled, appears internally preoccupied. Speech is not coherent and goal directed. Mood is anxious. Labile affect. Thought process not goal directed. Thought content: Paranoid delusions. Fund of knowledge is very poor. Insight and judgment is limited. ASSESSMENT: The patient continues to present with acute psychotic symptoms. She needs inpatient level of care. MANAGEMENT PLAN: We will continue to titrate the dose of Depakote. Maintain safety precautions. We will encourage the patient to be compliant with the medication.
[2016-03-17] MEDS: LORazepam 1 MG TAB PO PRN (17:52)
[2016-03-17 18:00] VITALS: BP 124/68
[2016-03-17] MEDS: DIVALPROEX 500 MG TAB PO SCH (20:17)
--- NOTE | 2016-03-17 22:02 | EEG ---
DATE OF PROCEDURE: 03/16/2016 REFERRING PHYSICIAN: Dr. Bear Patel DIAGNOSIS: Psychosis, rule out seizures. EEG NUMBER: [id number] CLINICAL HISTORY: The patient is a 20-year-old woman who was admitted at [facility] inpatient mental health unit due to psychosis. This EEG was done to rule out epileptic potential. She is currently on Abilify, Depakote , trazodone, Ativan, clonazepam, etc. TECHNICAL DESCRIPTION: This digital EEG was recorded by 21 scalp, ear and two EKG electrodes and was reviewed in bipolar and referential montages following reformatting in 10-20 international electrode placement system. INTERPRETATION: The patient was noted to be in awake and drowsy states during this EEG. Resting awake background consisted of well-formed posterior dominant rhythm with anterior/posterior gradient comprising of 12 Hz alpha activity measuring 15-40 microvolts in amplitude which was symmetric and reactive to eye opening. Excessive beta activity was seen in frontal head regions bilaterally due to medication effect. Hyperventilation elicited mild theta slowing of background rhythm. Attenuation of posterior dominant rhythm was seen during transition into drowsiness. Stage I and II sleep were reviewed and were symmetric bilaterally. Photic stimulation at 3-30 Hz elicited symmetric photic driving especially at mid frequencies. EKG was affected by artifact. No focal, lateralizing or epileptiform abnormalities were seen. No clinical or electrographic seizures were recorded. CONCLUSION: This EEG in awake, drowsy states, stage I and II sleep is within normal limits. Edited 03/17/2016 [facility] DERREK
[2016-03-18 06:41] VITALS: BP 121/68
[2016-03-18] MEDS: clonazePAM 0.5 MG TAB PO SCH ×2 (08:00→21:30)
[2016-03-18] MEDS: DIVALPROEX 500 MG TAB PO SCH ×2 (08:00→21:30)
[2016-03-18] MEDS: LORazepam 1 MG TAB PO PRN (10:39)
[2016-03-18] MEDS ORDERED: BENZTROPINE 1 MG TAB PO PRN (10:45)
[2016-03-18 18:00] VITALS: BP 115/61
[2016-03-19 06:32] VITALS: BP 116/70
[2016-03-19] MEDS: clonazePAM 0.5 MG TAB PO SCH ×2 (08:01→21:21)
[2016-03-19] MEDS: DIVALPROEX 500 MG TAB PO SCH ×2 (08:01→21:00)
--- NOTE | 2016-03-19 08:36 | IPN ---
DATE: 03/17/2016 HISTORY: Patient was seen today. Reports that she is doing much better. Patient is noted to have reduced mood lability. She has been sleeping well. Appetite has been good. She denies any taoism preoccupations currently. She has been able to do much better in the interview. Today, she was interviewed with staff, nurse Socorro Almazan. The patient denies any auditory or visual hallucinations. No paranoid or grandiose delusions. Reports that she has been participating in groups and she is keen to attend the meditation group today. She has been fully compliant with the medications as well. CURRENT MEDICATIONS: - Depakote 250 mg every a.m. and 500 mg at bedtime - Abilify 15 mg at bedtime VITAL SIGNS: Temperature 98.7, pulse 112 per minute, respiratory rate 18 per minute and blood pressure 124/63. MENTAL STATUS EXAMINATION: The patient is a 20-year-old female who is casually dressed, pleasant, cooperative, coherent, goal directed today. Mood is euthymic. Affect reactive and appropriate for situation. Thought process goal directed. Thought content: Denies active suicidal thoughts or plans. Orientation to time, place and person is intact. Fund of knowledge is adequate. Insight and judgment is improved. ASSESSMENT: Patient has been in better behavioral control. She is noted to be less labile in her mood. MANAGEMENT PLAN: Maintain current medications. If patient is able to maintain the improvement over the next few days, she could be discharged with outpatient psychiatric followup. Will request for a valproic acid on Sunday.
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
[2016-03-19] MEDS: LORazepam 1 MG TAB PO PRN (13:34)
[2016-03-19 18:00] VITALS: BP 121/71
[2016-03-19] MEDS ORDERED: DIVALPROEX 500 MG TAB PO ONE (21:45)
[2016-03-20 06:00] VITALS: BP 105/65
[2016-03-20] MEDS: clonazePAM 0.5 MG TAB PO SCH ×2 (08:57→20:20)
[2016-03-20] MEDS: DIVALPROEX 500 MG TAB PO SCH ×2 (08:57→20:20)
[2016-03-20 18:00] VITALS: BP 114/88
[2016-03-21 07:06] VITALS: BP 122/66
[2016-03-21] MEDS: clonazePAM 0.5 MG TAB PO SCH ×2 (08:56→21:28)
[2016-03-21] MEDS: DIVALPROEX 500 MG TAB PO SCH ×2 (08:56→21:28)
[2016-03-21 18:00] VITALS: BP 134/78
[2016-03-21] MEDS: LORazepam 1 MG TAB PO PRN (21:28)
[2016-03-21] MEDS: ARIPiprazole 10 MG TAB PO SCH (21:29)
[2016-03-22 06:30] VITALS: BP 121/73
[2016-03-22] MEDS ORDERED: TUBERCULIN PPD 5 UNITS/0.1 ML ID ONE (08:15)
[2016-03-22] MEDS: DIVALPROEX 500 MG TAB PO SCH ×2 (08:20→22:01)
[2016-03-22] MEDS: clonazePAM 0.5 MG TAB PO SCH ×2 (08:20→22:00)
[2016-03-22] MEDS ORDERED: **PENDING PPD ENTRY XX SCH (09:00)
[2016-03-22] MEDS ORDERED: TUBERCULIN PPD 5 UNITS/0.1 ML ID SCH (10:00)
--- NOTE | 2016-03-22 12:53 | IPN ---
DATE: 03/21/2016 HISTORY: Patient was seen today. Patient feels very comfortable in God's way. She reports that she feels presence of him in her. She reports that she knows which route to take. She reports Clayton is the purpose and she feels the [employer] is a purpose. She went on to say is my purpose. Patient reports that she feels God in all the people around her, nursing staff, doctors and other patients. She reports that she is being blessed being in the hospital. CURRENT MEDICATIONS: - Abilify 15 mg nightly - Cogentin 1 mg by mouth every 6 hours as needed - Haldol 5 mg every 6 hours as needed - clonazepam 0.5 mg twice a day - trazodone 100 mg nightly as needed - Depakote 500 mg twice a day LABORATORY DATA: Serum Depakote level is 94.8. VITAL SIGNS: Temperature 96.6, pulse 113 per minute, respiratory rate 18 per minute, blood pressure (BP) 122/66. MENTAL STATUS EXAMINATION: Patient is a 20-year-old female who is dressed casual clothes, pleasant, cooperative. Makes appropriate eye contact. Rapport was established. Towards the end of the interview she became somewhat guarded. Thought process not goal directed. Thought content: Congregational preoccupation as described above. Fund of knowledge is poor. Insight and judgment is limited. Patient continues to be unstable and presents with acute psychotic symptoms. She is cinthya preoccupied with Clayton, who is 17 years old. MANAGEMENT PLAN: I have increased Abilify to 20 mg at night. Continue current medications. Maintain safety precautions. Patient will be encouraged to participate in individual, group, and recreational therapy activities in the unit.
--- NOTE | 2016-03-22 16:51 | ECGEPIP ---
Stationary ECG Study [facility] Test Date: 2016-03-22 Pat Name: FREDERIC GALLO Department: Room: [place] [address] Gender: F Evening Or Night Nurse Supervisor: ROSEMARY : 1995 Requested By: JONEL TAYLOR Order Number: [id number] Reading MD: Bryant Stephens Measurements Intervals [place] Rate: 88 P: 53 GA: 154 QRS: 77 QRSD: 84 T: 31 QT: 344 QTc: 418 Interpretive Statements SINUS RHYTHM, Within normal limits. Repolarization has normalized in comparison to 02/28/2016. Electronically Signed On 03-22-2016 16:51:36 EST by Bryant Stephens
[2016-03-22 18:00] VITALS: BP 116/74
[2016-03-22] MEDS: LORazepam 1 MG TAB PO PRN (22:00)
[2016-03-22] MEDS: ARIPiprazole 10 MG TAB PO SCH (22:01)
[2016-03-23 06:20] VITALS: BP 130/73
[2016-03-23] MEDS: clonazePAM 0.5 MG TAB PO SCH ×2 (08:40→23:05)
[2016-03-23] MEDS: DIVALPROEX 500 MG TAB PO SCH ×2 (08:40→23:05)
--- NOTE | 2016-03-23 11:48 | IPN ---
DATE: 03/22/2016 HISTORY: Patient is seen today. She was seen with staff nurse Julia. The patient reports that she has been taking her medications. She feels a lot better. She has been sleeping well at night. She has now decided to go to live with her parents. She is willing for her parents to come for a visit. She continues to be preoccupied with Clayton and Zoya. She reports the purpose of her life is Clayton and Zoya. She reports her wanting to go to live with Clayton and Zoya has caused significant arguments and therefore she would like to go live with her parents and reports that they live down the street and she would go visit with them. She continues to feel uplifted in her mood. 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 VITAL SIGNS: Temperature 98.7, pulse 120 per minute, respiratory rate 18 per minute, blood pressure 121/73. MENTAL STATUS EXAMINATION: Patient is a 20-year-old female dressed in casual clothes, pleasant and cooperative. Able to smile appropriately. Thought process goal directed, thought content preoccupied with God. Fund of knowledge is poor. Insight and judgment is limited. ASSESSMENT: Patient presented better today during the interview. She is now willing for her parents to visit. MANAGEMENT PLAN: Will request for a family meeting with her parents. Will also request an EKG as the patient is noted to have tachycardia. Maintain safety precautions. Patient will be encouraged to participate in activities within the unit. DERREK
--- NOTE | 2016-03-23 16:03 | IPNPDOC ---
[facility] Progress Note Progress Note DATE: 03/23/16 HISTORY: Patient is seen today to evaluate treatment progress on the inpatient unit. Patient was observed to be visible, walking in hallway, engaging with peers. Patient denied symptoms of anxiety and depression, denied suicidal and homicidal ideation, denied audiovisual hallucinations, and denied urge to engage in self-injurious behavior. Patient indicated current medication regimen is working well, "I'm not distracted by my bad thoughts as much now, only good thoughts now." Patient indicated she feels comfortable on the unit and denied challenges with sleep and appetite, further indicated concentration and energy levels are good. Patient stated during interaction that she very much wants to discharge to home of friends [place] adding, "really beautiful when I'm there." Patient was observed to be looking around the office, was easily distracted, generally redirectable, and was noted to be smiling inappropriately 1. When asked about discharge patient indicated she does not want to discharge to home with family and is not interested in long-term care placement, wants to discharge to home with friends. Patient presented with no signs of acute distress and denied symptoms of physical pain. VITAL SIGNS: See below NEW TEST RESULTS: EKG from 03/22/16 - SINUS RHYTHM, Within normal limits. Repolarization has normalized in comparison to 02/28/2016. Depakote level on was 94.8 CURRENT MEDICATIONS: See below MENTAL STATUS EVALUATION: Appearance -20 year old woman, appears stated age, fair grooming/hygiene, dressed in hospital clothes, displays prolonged gaze Behavior - no psychomotor agitation noted, calm, engageable Attitude -anxious, cooperative with interview Speech - spontaneous, rambling at times, normal volume Thought content -denies suicidal/homicidal ideation, denies audiovisual hallucinations, denies urge to engage in self-injurious behavior, denies paranoia and compulsions, does not appear to be responding to internal stimuli; denies audiovisual hallucinations but does appear to be internally preoccupied, remains preoccupied with God and discharge to home of friends. 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 The patient appears to be adjusting to the unit and indicates her current medication regimen is effective and she denies medication side effects. In Dr. Patel's last note, patient is making progress in treatment. Patient has been attending groups, been cooperative with staff, and as of last appointment with Dr. Patel was willing to have a family meeting scheduled with her family custody discharge options. Patient remains fixated on desire to discharge to home of friends [place] and [place] , informs commercial loan underwriter that she feels that discharge is "just the most right and comfortable one because I feel so closely connected to God and my friends my friends." Patient indicates discharge to home with parents would cause "anxiety , there is just a lot of conflict there," reiterates she is willing to participate in family meeting. DIAGNOSES: Schizophreniform disorder MANAGEMENT PLAN: Patient to continue current medication regimen of Abilify 20 mg by mouth daily at bedtime, Depakote 500 mg twice a day, trazodone 100 mg at bedtime when needed for sleep, Klonopin 0.5 mg twice a day, and Ativan 1 mg every 6 hours when necessary. Maintain safety precautions Patient to continue to attend groups and participate in unit programming to develop coping strategies Engage patient in discharge planning process and arrange meeting with family to evaluate safe discharge plan options, including transfer to [facility] Patient to follow up with PCM upon discharge Vital Signs Vital Sign - Last 24 Hours 03/22/16 03/23/16 18:00 06:20 Temp 97.0 96.2 Pulse 100 87 Resp 16 18 B/P 116/74 130/73 Current Medications Current Medications Acetaminophen (Tylenol) 650 mg Q6HP PRN PO HEADACHE or DISCOMFORT; Start 03/09 at 16:30; Stop 04/08/16 at 16:29 Al Hydrox/Mg Hydrox/Simethicone (Mylanta) 30 ml Q4HP PRN PO HEARTBURN/ INDIGESTION; Start 03/09/16 at 16:30; Stop 04/08/16 at 16:29 Aripiprazole (AbiLIFY) 5 mg QHS PO Last administered on 03/12/16at 21:48; Start 03/10/16 at 21:00; Stop 03/13/16 at 10:09; Status DC Aripiprazole (AbiLIFY) 10 mg QHS PO Last administered on 03/13/16at 21:46; Start 03/13/16 at 21:00; Stop 03/14/16 at 14:00; Status DC Aripiprazole (AbiLIFY) 15 mg QHS PO Last administered on 03/20/16at 20:20; Start 03/14/16 at 21:00; Stop 03/21/16 at 11:10; Status DC Aripiprazole (AbiLIFY) 20 mg QHS PO Last administered on 03/22/16at 22:01; Start 03/21/16 at 21:00; Stop 04/20/16 at 20:59 Benztropine Mesylate (Cogentin) 0.5 mg BID PO Last administered on 03/14/16at 09:27; Start 03/13/16 at 21:00; Stop 03/14/16 at 13:54; Status DC Benztropine Mesylate (Cogentin) 1 mg Q6HP PRN PO EPSE; Start 03/18/16 at 10:45 ; Stop 04/17/16 at 10:44 Benztropine Mesylate (Cogentin) 2 mg BID PO Last administered on 03/13/16at 08: 59; Start 03/09/16 at 21:00; Stop 03/13/16 at 10:10; Status DC Citalopram Hydrobromide (CeleXA) 20 mg DAILY PO Last administered on at 08:05; Start 03/10/16 at 09:00; Stop 03/15/16 at 10:17; Status DC Clonazepam (KlonoPIN) 0.5 mg BID PO Last administered on 03/23/16at 08:40; Start 03/10/16 at 09:00; Stop 03/29/16 at 08:59 Divalproex Sodium (Depakote) 250 mg BID PO Last administered on 03/16/16at 08: 21; Start 03/15/16 at 09:00; Stop 03/16/16 at 12:06; Status DC Divalproex Sodium (Depakote) 250 mg QAM PO Last administered on 03/17/16at 09: 06; Start 03/17/16 at 09:00; Stop 03/17/16 at 14:35; Status DC Divalproex Sodium (Depakote) 500 mg BID PO Last administered on 03/23/16at 08: 40; Start 03/17/16 at 21:00; Stop 04/16/16 at 20:59 Divalproex Sodium (Depakote) 500 mg ONCE ONCE PO Last administered on at 21:59; Start 03/19/16 at 21:45; Stop 03/19/16 at 21:46; Status DC Divalproex Sodium (Depakote) 500 mg QHS PO Last administered on 03/16/16at 20: 29; Start 03/16/16 at 21:00; Stop 03/17/16 at 14:35; Status DC Haloperidol (Haldol) 5 mg Q6HP PRN PO AGITATION; Start 03/18/16 at 10:45; Stop 04/17/16 at 10:44 Home Med (Med Rec Complete!) ASDIRECTED XX ; Start 03/09/16 at 16:45; Stop at 16:45; Status DC Lorazepam (Ativan) 1 mg Q6HP PRN PO ANXIETY/agitation Last administered on at 22:00; Start 03/10/16 at 14:30; Stop 03/29/16 at 14:29 Magnesium Hydroxide (Milk Of Magnesia) 30 ml DAILYPRN PRN PO CONSTIPATION; Start 03/09/16 at 16:30; Stop 04/08/16 at 16:29 Non-Formulary Medication ( See Comment Field Below ) SEE COMMENTS SECTION 1T @10 XX ; Start 03/24/16 at 10:00; Stop 03/24/16 at 10:00; Status DC Non-Formulary Medication ( See Comment Field Below ) SEE LABEL COMMENTS DAILY XX ; Start 03/22/16 at 09:00; Stop 03/22/16 at 09:43; Status DC Non-Formulary Medication ( See Comment Field Below ) SEE LABEL COMMENTS SECTION 1T@10 XX ; Start 03/24/16 at 10:00; Stop 03/24/16 at 23:59 Risperidone (RisperDAL) 0.5 mg BID PO Last administered on 03/14/16at 09:26; Start 03/13/16 at 21:00; Stop 03/14/16 at 13:54; Status DC Risperidone (RisperDAL) 1 mg BID PO Last administered on 03/13/16at 08:59; Start 03/10/16 at 21:00; Stop 03/13/16 at 10:09; Status DC Risperidone (RisperDAL) 2 mg BID PO Last administered on 03/10/16at 08:15; Start 03/09/16 at 21:00; Stop 03/10/16 at 12:52; Status DC Trazodone HCl (Desyrel) 100 mg QHSP PRN PO INSOMNIA Last administered on at 21:57; Start 03/09/16 at 16:30; Stop 04/08/16 at 16:29 Tuberculin PPD (Aplisol, Ppd) 5 units 1T@10 ID Last administered on 03/22/16at 13:43; Start 03/22/16 at 10:00; Stop 03/22/16 at 23:59; Status DC Tuberculin PPD (Aplisol, Ppd) 5 units NOW ONCE ID ; Start 03/22/16 at 08:15; Stop 03/22/16 at 09:28; Status DC Allergies Coded Allergies: No Known Allergies (Unverified , 02/26/16) Tona Norman Mar 23, 2016 16:03
[2016-03-23 18:00] VITALS: BP 132/69
[2016-03-23] MEDS: ARIPiprazole 10 MG TAB PO SCH (23:05)
[2016-03-24 06:30] VITALS: BP 114/62
[2016-03-24] MEDS: DIVALPROEX 500 MG TAB PO SCH ×2 (08:28→22:32)
[2016-03-24] MEDS: clonazePAM 0.5 MG TAB PO SCH ×2 (08:29→19:58)
[2016-03-24] MEDS ORDERED: PPD DOCUMENTATION ENTRY MISC XX SCH ×2 (10:00)
[2016-03-24 18:00] VITALS: BP 122/69
--- NOTE | 2016-03-24 18:16 | IPNPDOC ---
[facility] Progress Note Progress Note DATE: 03/24/16 HISTORY: Patient was seen today to evaluate treatment progress on the inpatient unit. Patient was easily engaged and readily met with sign writer letterer or painter. Patient continues to be visible in milieu, engages with peers, and attends groups. Patient denied symptoms of anxiety and depression, denied suicidal and homicidal ideation, denied audiovisual hallucinations, and denied urge to engage in self-injurious behavior. Patient asked repeatedly about discharge and informed sign writer letterer or painter she is not interested in discharge to long-term care or her parents home, wants to discharge to home of her friends [place] and [place]. Patient indicated current medication regimen continues to work well and she denied side effects. Patient had to interrupt today's meeting for approximately 2 minutes so that she could pray, became tearful and made reference to a cross she was wearing around her neck noting, "it's so beautiful, it's all the help." Patient initially reports improved concentration but then makes request for glasses to read due to reduced ability to focus related to "blurred vision." Patient indicates symptoms of blurred vision are intermittent and notes she does not experience blurred vision when reading the Bible, but when reading other books she does. Patient reiterated she feels comfortable on the unit and denied challenges with sleep and appetite, states energy level remains good. Patient was observed to be looking around the office, was easily distracted, generally redirectable, and was noted to be smiling inappropriately at times. Patient presented with no signs of acute distress and denied symptoms of physical pain. VITAL SIGNS: See below NEW TEST RESULTS: EKG from 03/22/16 - SINUS RHYTHM, Within normal limits. Repolarization has normalized in comparison to 02/28/2016. Depakote level on was 94.8 CURRENT MEDICATIONS: See below MENTAL STATUS EVALUATION: Appearance -20 year old woman, appears stated age, fair grooming/hygiene, dressed in own clothing, displays prolonged gaze Behavior - no psychomotor agitation noted, calm, engageable Attitude -anxious, cooperative with interview Speech - spontaneous, rambling and tangential at times, normal volume Thought content -denies suicidal/homicidal ideation, denies audiovisual hallucinations, denies urge to engage in self-injurious behavior, denies paranoia and compulsions, may be responding to internal stimuli; denies audiovisual hallucinations but does appear to be internally preoccupied, remains preoccupied with God and discharge to home of friends. Thought process -illogical at times, perseverative, paranoid per record Mood - "I'm feeling good," some lability, tearful X 1 Affect -blunted but brightens, smiles inappropriately at times Cognition - grossly intact Orientation - person and place, unable to assess orientation to time Insight and Judgement: Poor ASSESSMENT: Patient appears to be adjusting to unit well and is visible, attending groups, and indicates groups are helpful. Patient states she feels her current medication regimen remains effective and she denies medication side effects. Patient states she remains willing to have a discharge planning meeting , however, today notes she wants to have the meeting with her friends to arrange discharge to their home, is declining to plan for discharge to her parents home. Patient is able to effectively engage in the safety planning process and verbalizes awareness of how to access staff support on the unit if needed. Will monitor patient for medication side effects in light of recent report of intermittent "blurred vision," though patient indicates symptoms are reading material specific and will continue to monitor patient's response to current medication regimen. DIAGNOSES: Schizophreniform disorder MANAGEMENT PLAN: Patient to continue current medication regimen of Abilify 20 mg by mouth daily at bedtime, Depakote 500 mg twice a day, trazodone 100 mg at bedtime PRN, Klonopin 0.5 mg twice a day, and Ativan 1 mg q 6 hours PRN. Maintain safety precautions Patient to continue to attend groups and participate in unit programming to develop coping strategies Engage patient in discharge planning process and arrange meeting with family to evaluate safe discharge plan options, including transfer to [facility] [place] [facility] Patient to follow up with PCM upon discharge Vital Signs Vital Sign - Last 24 Hours 03/23/16 03/24/16 18:00 06:30 Temp 97.0 95.5 Pulse 107 89 Resp 16 16 B/P 132/69 114/62 Current Medications Current Medications Acetaminophen (Tylenol) 650 mg Q6HP PRN PO HEADACHE or DISCOMFORT; Start 03/09 at 16:30; Stop 04/08/16 at 16:29 Al Hydrox/Mg Hydrox/Simethicone (Mylanta) 30 ml Q4HP PRN PO HEARTBURN/ INDIGESTION; Start 03/09/16 at 16:30; Stop 04/08/16 at 16:29 Aripiprazole (AbiLIFY) 5 mg QHS PO Last administered on 03/12/16at 21:48; Start 03/10/16 at 21:00; Stop 03/13/16 at 10:09; Status DC Aripiprazole (AbiLIFY) 10 mg QHS PO Last administered on 03/13/16at 21:46; Start 03/13/16 at 21:00; Stop 03/14/16 at 14:00; Status DC Aripiprazole (AbiLIFY) 15 mg QHS PO Last administered on 03/20/16at 20:20; Start 03/14/16 at 21:00; Stop 03/21/16 at 11:10; Status DC Aripiprazole (AbiLIFY) 20 mg QHS PO Last administered on 03/23/16at 23:05; Start 03/21/16 at 21:00; Stop 04/20/16 at 20:59 Benztropine Mesylate (Cogentin) 0.5 mg BID PO Last administered on 03/14/16at 09:27; Start 03/13/16 at 21:00; Stop 03/14/16 at 13:54; Status DC Benztropine Mesylate (Cogentin) 1 mg Q6HP PRN PO EPSE; Start 03/18/16 at 10:45 ; Stop 04/17/16 at 10:44 Benztropine Mesylate (Cogentin) 2 mg BID PO Last administered on 03/13/16at 08: 59; Start 03/09/16 at 21:00; Stop 03/13/16 at 10:10; Status DC Citalopram Hydrobromide (CeleXA) 20 mg DAILY PO Last administered on at 08:05; Start 03/10/16 at 09:00; Stop 03/15/16 at 10:17; Status DC Clonazepam (KlonoPIN) 0.5 mg BID PO Last administered on 03/24/16at 08:29; Start 03/10/16 at 09:00; Stop 03/29/16 at 08:59 Divalproex Sodium (Depakote) 250 mg BID PO Last administered on 03/16/16at 08: 21; Start 03/15/16 at 09:00; Stop 03/16/16 at 12:06; Status DC Divalproex Sodium (Depakote) 250 mg QAM PO Last administered on 03/17/16at 09: 06; Start 03/17/16 at 09:00; Stop 03/17/16 at 14:35; Status DC Divalproex Sodium (Depakote) 500 mg BID PO Last administered on 03/24/16at 08: 28; Start 03/17/16 at 21:00; Stop 04/16/16 at 20:59 Divalproex Sodium (Depakote) 500 mg ONCE ONCE PO Last administered on at 21:59; Start 03/19/16 at 21:45; Stop 03/19/16 at 21:46; Status DC Divalproex Sodium (Depakote) 500 mg QHS PO Last administered on 03/16/16at 20: 29; Start 03/16/16 at 21:00; Stop 03/17/16 at 14:35; Status DC Haloperidol (Haldol) 5 mg Q6HP PRN PO AGITATION; Start 03/18/16 at 10:45; Stop 04/17/16 at 10:44 Home Med (Med Rec Complete!) ASDIRECTED XX ; Start 03/09/16 at 16:45; Stop at 16:45; Status DC Lorazepam (Ativan) 1 mg Q6HP PRN PO ANXIETY/agitation Last administered on at 22:00; Start 03/10/16 at 14:30; Stop 03/29/16 at 14:29 Magnesium Hydroxide (Milk Of Magnesia) 30 ml DAILYPRN PRN PO CONSTIPATION; Start 03/09/16 at 16:30; Stop 04/08/16 at 16:29 Non-Formulary Medication ( See Comment Field Below ) SEE COMMENTS SECTION 1T @10 XX ; Start 03/24/16 at 10:00; Stop 03/24/16 at 10:00; Status DC Non-Formulary Medication ( See Comment Field Below ) SEE LABEL COMMENTS DAILY XX ; Start 03/22/16 at 09:00; Stop 03/22/16 at 09:43; Status DC Non-Formulary Medication ( See Comment Field Below ) SEE LABEL COMMENTS SECTION 1T@10 XX Last administered on 03/24/16at 09:32; Start 03/24/16 at 10: 00; Stop 03/24/16 at 23:59 Risperidone (RisperDAL) 0.5 mg BID PO Last administered on 03/14/16at 09:26; Start 03/13/16 at 21:00; Stop 03/14/16 at 13:54; Status DC Risperidone (RisperDAL) 1 mg BID PO Last administered on 03/13/16at 08:59; Start 03/10/16 at 21:00; Stop 03/13/16 at 10:09; Status DC Risperidone (RisperDAL) 2 mg BID PO Last administered on 03/10/16at 08:15; Start 03/09/16 at 21:00; Stop 03/10/16 at 12:52; Status DC Trazodone HCl (Desyrel) 100 mg QHSP PRN PO INSOMNIA Last administered on at 21:57; Start 03/09/16 at 16:30; Stop 04/08/16 at 16:29 Tuberculin PPD (Aplisol, Ppd) 5 units 1T@10 ID Last administered on 03/22/16at 13:43; Start 03/22/16 at 10:00; Stop 03/22/16 at 23:59; Status DC Tuberculin PPD (Aplisol, Ppd) 5 units NOW ONCE ID ; Start 03/22/16 at 08:15; Stop 03/22/16 at 09:28; Status DC Allergies Coded Allergies: No Known Allergies (Unverified , 02/26/16) Tona Norman Mar 24, 2016 18:16
[2016-03-24] MEDS: ARIPiprazole 10 MG TAB PO SCH (22:32)
[2016-03-24] MEDS: traZODone 50 MG TAB PO PRN (23:42)
[2016-03-25 06:34] VITALS: BP 112/64
[2016-03-25] MEDS: DIVALPROEX 500 MG TAB PO SCH ×2 (08:13→23:45)
[2016-03-25] MEDS: clonazePAM 0.5 MG TAB PO SCH ×2 (08:13→23:44)
[2016-03-25] MEDS: LORazepam 1 MG TAB PO PRN (12:02)
[2016-03-25 18:00] VITALS: BP 118/73
[2016-03-25] MEDS: ARIPiprazole 10 MG TAB PO SCH (23:44)
[2016-03-26] MEDS: traZODone 50 MG TAB PO PRN (00:17)
[2016-03-26 06:16] VITALS: BP 123/70
[2016-03-26] MEDS: clonazePAM 0.5 MG TAB PO SCH ×2 (09:50→21:39)
[2016-03-26] MEDS: DIVALPROEX 500 MG TAB PO SCH ×2 (09:50→21:39)
[2016-03-26 18:00] VITALS: BP 119/78
[2016-03-26] MEDS: ARIPiprazole 10 MG TAB PO SCH (21:39)
[2016-03-27 06:00] VITALS: BP 125/69
[2016-03-27] MEDS: clonazePAM 0.5 MG TAB PO SCH ×2 (09:00→22:11)
[2016-03-27] MEDS: DIVALPROEX 500 MG TAB PO SCH ×2 (09:12→22:11)
[2016-03-27] MEDS: HALOPERIDOL 5 MG TAB PO PRN (10:50)
[2016-03-27 18:00] VITALS: BP 112/62
--- NOTE | 2016-03-27 20:51 | IPN ---
DATE: 03/26/2016 VITAL SIGNS: Temperature 96.8, pulse 118, respirations 18, blood pressure 123/70. CURRENT MEDICATIONS: - Depakote 500 mg twice a day - Ativan 1 mg every six hours as needed - Klonopin 0.5 mg twice a day - trazodone 100 mg at bedtime as needed - Abilify 20 mg by mouth at bedtime PSYCHIATRIC HISTORY: This is a 20-year-old white female with schizophreniform disorder, seen at request of nursing staff inpatient, due to complaint of blurred vision. The patient now reports blurry vision with any reading material, even her Bible. It is also interfering with her coloring as well, which she has found so therapeutic. The patient states that her mood is better. She feels happier. She is still, however, quite preoccupied by rastafari and fear of the devil. The patient is frightened by a type of "darkness" that she has inside herself that she says is somehow connected with the devil. She has had these visual changes for about 5-6 days now. We looked at her psychotropics. However, she does not want any change in her medication. Staff member is bringing in reading glasses for her, and she would like to try that option first instead, which appears reasonable. MENTAL STATUS EXAMINATION: The patient is alert, oriented and cooperative. No signs of agitation. She does become tearful talking about the devil briefly. Otherwise, her affect appears brighter. Speech is still rambling and tangential at times. She is still preoccupied by presybeterian themes. Insight and judgment appear fair. IMPRESSION: Schizophreniform disorder. PLAN: No current change in psychotropics. However, if she does want such a change, I would consider reducing her Depakote dosage in half.
[2016-03-27] MEDS: ARIPiprazole 10 MG TAB PO SCH (22:11)
[2016-03-28 06:07] VITALS: BP 142/88
[2016-03-28] MEDS: clonazePAM 0.5 MG TAB PO SCH (09:00)
[2016-03-28] MEDS: DIVALPROEX 500 MG TAB PO SCH ×2 (09:29→21:20)
[2016-03-28 18:00] VITALS: BP 130/82
--- NOTE | 2016-03-28 19:22 | IPNPDOC ---
[facility] Progress Note Progress Note DATE: 03/28/16 HISTORY: Patient was seen today to evaluate treatment progress on the inpatient unit. Patient was seen over weekend by on-call provider to address report of blurred vision. Patient indicates she is now using reading glasses and problem has been resolved. Patient was easily engaged continues to be visible in milieu, engages with peers and has been attending groups. Patient reports 2/10 anxiety, 2/10 depression, denied suicidal and homicidal ideation, denied audiovisual hallucinations, and denied urge to engage in self-injurious behavior. Patient indicated current medication regimen continues to work well, denied side effects, and denies need for changes to medication. Patient stated symptoms of depression and anxiety related to her desire to discharge to the home of friends Clayton and Steph noting, "that's my purpose in life, they believe heavily in God. Clayton is Yvon and I am Ninfa." Patient became tearful and indicated that she believes this auto service writer can see her thoughts, smiled inappropriately while looking around room. Patient reiterated she feels comfortable on the unit and denied challenges with sleep and appetite, states energy level remains good. Patient remains easily distracted, generally redirectable, and presented with no signs of acute distress. Patient denied symptoms of physical pain. Patient today indicates she will sign an BECKY coordinator of evaluation to communicate with her parents regarding discharge planning options, and changes her mind stating she will not sign an BECKY. VITAL SIGNS: See below NEW TEST RESULTS: EKG from 03/22/16 - SINUS RHYTHM, Within normal limits. Repolarization has normalized in comparison to 02/28/2016. Depakote level on was 94.8 CURRENT MEDICATIONS: See below MENTAL STATUS EVALUATION: Appearance -20 year old woman, appears stated age, fair grooming/hygiene, dressed in own clothing, displays prolonged, fixed gaze Behavior - no psychomotor agitation noted, calm, engageable Attitude -anxious, cooperative with interview Speech - spontaneous, rambling, tangential, normal volume Thought content -denies suicidal/homicidal ideation, denies audiovisual hallucinations, denies urge to engage in self-injurious behavior, denies paranoia and compulsions, may be responding to internal stimuli; denies audiovisual hallucinations but does appear to be internally preoccupied, remains preoccupied with God and discharge to home of friends, believes auto service writer can see her thoughts. Thought process -illogical at times, perseverative, paranoid Mood - "I'm not feeling as good because I want to go live with Clayton Choi," mood lability noted and tearful X 1 Affect -blunted but brightens, smiles inappropriately at times Cognition - grossly intact Orientation - person and place, unable to assess orientation to time Insight and Judgement: Remains poor ASSESSMENT: Patient has adjusted to unit, remains visible, is attending groups, and indicates groups are helpful. Patient states she feels her current medication regimen remains effective and she denies medication side effects, denies need for changes to medication. Patient stated today she is willing to have discharge planning meeting with her parents, but then changed her mind, remains to stated in only arranging discharge with friends. Patient remains aware that long-term care discharge plans remain in place. Patient is able to effectively engage in the safety planning process and verbalizes awareness of how to access staff support on the unit if needed. Will monitor patient for medication side effects and will monitor for need for dosing adjustment to Abilify to address symptoms of diarrhea, depression, and psychosis, should symptoms persist. We'll evaluate reduction to Depakote dose if symptoms of blurred vision return and become problematic. DIAGNOSES: Schizophreniform disorder MANAGEMENT PLAN: Patient to continue current medication regimen of Abilify 20 mg by mouth daily at bedtime, Depakote 500 mg twice a day, trazodone 100 mg at bedtime PRN. Klonopin 0.5 mg po BID was changed to PRN and Ativan 1 mg q 6 hours PRN was discontinued. Maintain safety precautions Patient to continue to attend groups and participate in unit programming to develop coping strategies Engage patient in discharge planning process and arrange meeting with family to evaluate safe discharge plan options, including transfer to [facility] [place] Patient to follow up with PCM upon discharge Vital Signs Vital Sign - Last 24 Hours 03/28/16 06:07 Temp 96.2 Pulse 101 Resp 19 B/P 142/88 Current Medications Current Medications Acetaminophen (Tylenol) 650 mg Q6HP PRN PO HEADACHE or DISCOMFORT; Start 03/09 at 16:30; Stop 04/08/16 at 16:29 Al Hydrox/Mg Hydrox/Simethicone (Mylanta) 30 ml Q4HP PRN PO HEARTBURN/ INDIGESTION; Start 03/09/16 at 16:30; Stop 04/08/16 at 16:29 Aripiprazole (AbiLIFY) 5 mg QHS PO Last administered on 03/12/16at 21:48; Start 03/10/16 at 21:00; Stop 03/13/16 at 10:09; Status DC Aripiprazole (AbiLIFY) 10 mg QHS PO Last administered on 03/13/16at 21:46; Start 03/13/16 at 21:00; Stop 03/14/16 at 14:00; Status DC Aripiprazole (AbiLIFY) 15 mg QHS PO Last administered on 03/20/16at 20:20; Start 03/14/16 at 21:00; Stop 03/21/16 at 11:10; Status DC Aripiprazole (AbiLIFY) 20 mg QHS PO Last administered on 03/27/16 22:11; Start 03/21/16 at 21:00; Stop 04/20/16 at 20:59 Benztropine Mesylate (Cogentin) 0.5 mg BID PO Last administered on 03/14/16at 09:27; Start 03/13/16 at 21:00; Stop 03/14/16 at 13:54; Status DC Benztropine Mesylate (Cogentin) 1 mg Q6HP PRN PO EPSE; Start 03/18/16 at 10:45 ; Stop 04/17/16 at 10:44 Benztropine Mesylate (Cogentin) 2 mg BID PO Last administered on 03/13/16at 08: 59; Start 03/09/16 at 21:00; Stop 03/13/16 at 10:10; Status DC Citalopram Hydrobromide (CeleXA) 20 mg DAILY PO Last administered on at 08:05; Start 03/10/16 at 09:00; Stop 03/15/16 at 10:17; Status DC Clonazepam (KlonoPIN) 0.5 mg BID PO Last administered on 03/27/16 22:11; Start 03/10/16 at 09:00; Stop 03/28/16 at 11:22; Status DC Clonazepam (KlonoPIN) 0.5 mg BID PRN PO ANXIETY; Start 03/28/16 at 11:30; Stop 04/04/16 at 11:29 Divalproex Sodium (Depakote) 250 mg BID PO Last administered on 03/16/16at 08: 21; Start 03/15/16 at 09:00; Stop 03/16/16 at 12:06; Status DC Divalproex Sodium (Depakote) 250 mg QAM PO Last administered on 03/17/16at 09: 06; Start 03/17/16 at 09:00; Stop 03/17/16 at 14:35; Status DC Divalproex Sodium (Depakote) 500 mg BID PO Last administered on 03/28/16 09:29 ; Start 03/17/16 at 21:00; Stop 04/16/16 at 20:59 Divalproex Sodium (Depakote) 500 mg ONCE ONCE PO Last administered on at 21:59; Start 03/19/16 at 21:45; Stop 03/19/16 at 21:46; Status DC Divalproex Sodium (Depakote) 500 mg QHS PO Last administered on 03/16/16at 20: 29; Start 03/16/16 at 21:00; Stop 03/17/16 at 14:35; Status DC Haloperidol (Haldol) 5 mg Q6HP PRN PO AGITATION Last administered on 03/27/16t 10:50; Start 03/18/16 at 10:45; Stop 04/17/16 at 10:44 Home Med (Med Rec Complete!) ASDIRECTED XX ; Start 03/09/16 at 16:45; Stop at 16:45; Status DC Lorazepam (Ativan) 1 mg Q6HP PRN PO ANXIETY/agitation Last administered on at 12:02; Start 03/10/16 at 14:30; Stop 03/28/16 at 11:22; Status DC Magnesium Hydroxide (Milk Of Magnesia) 30 ml DAILYPRN PRN PO CONSTIPATION; Start 03/09/16 at 16:30; Stop 04/08/16 at 16:29 Non-Formulary Medication ( See Comment Field Below ) SEE COMMENTS SECTION 1T @10 XX ; Start 03/24/16 at 10:00; Stop 03/24/16 at 10:00; Status DC Non-Formulary Medication ( See Comment Field Below ) SEE LABEL COMMENTS DAILY XX ; Start 03/22/16 at 09:00; Stop 03/22/16 at 09:43; Status DC Non-Formulary Medication ( See Comment Field Below ) SEE LABEL COMMENTS SECTION 1T@10 XX Last administered on 03/24/16at 09:32; Start 03/24/16 at 10: 00; Stop 03/25/16 at 00:00; Status DC Risperidone (RisperDAL) 0.5 mg BID PO Last administered on 03/14/16at 09:26; Start 03/13/16 at 21:00; Stop 03/14/16 at 13:54; Status DC Risperidone (RisperDAL) 1 mg BID PO Last administered on 03/13/16at 08:59; Start 03/10/16 at 21:00; Stop 03/13/16 at 10:09; Status DC Risperidone (RisperDAL) 2 mg BID PO Last administered on 03/10/16at 08:15; Start 03/09/16 at 21:00; Stop 03/10/16 at 12:52; Status DC Trazodone HCl (Desyrel) 100 mg QHSP PRN PO INSOMNIA Last administered on t 00:17; Start 03/09/16 at 16:30; Stop 04/08/16 at 16:29 Tuberculin PPD (Aplisol, Ppd) 5 units 1T@10 ID Last administered on 03/22/16at 13:43; Start 03/22/16 at 10:00; Stop 03/22/16 at 23:59; Status DC Tuberculin PPD (Aplisol, Ppd) 5 units NOW ONCE ID ; Start 03/22/16 at 08:15; Stop 03/22/16 at 09:28; Status DC Allergies Coded Allergies: No Known Allergies (Unverified , 02/26/16) Tona Norman Mar 28, 2016 19:22
[2016-03-28] MEDS: ARIPiprazole 10 MG TAB PO SCH (21:20)
[2016-03-29] MEDS: traZODone 50 MG TAB PO PRN ×2 (01:59→21:30)
[2016-03-29 06:29] VITALS: BP 130/76
[2016-03-29] MEDS: DIVALPROEX 500 MG TAB PO SCH (09:40)
[2016-03-29] MEDS: clonazePAM 0.5 MG TAB PO PRN (09:40)
--- NOTE | 2016-03-29 15:16 | IPNPDOC ---
[facility] Progress Note Progress Note DATE: 03/29/16 HISTORY: Patient was seen today to evaluate treatment progress on the inpatient unit. Patient continues to complain of blurred vision, indicates she is now experiencing blurred vision consistently, indicates reading glasses are ineffective in correcting vision. Patient remains easily engaged, continues to be visible in milieu, engages with peers and has been attending groups. Patient reports 0/10 anxiety, 2/10 depression, denied suicidal and homicidal ideation, denied audiovisual hallucinations, and denied urge to engage in self-injurious behavior. Patient informs manual writer today that she feels "numb to my emotions," indicates she feels her mood is stable, continues to express delusional system involving friends Clayton and Steph reiterating she feels she is Ninfa and Clayton is Yvon , remains religiously preoccupied. Patient re-stated desire to discharge to the home of friends Clayton and Steph, today indicating that she will sign BECKY to allow advertising operations coordinator to communicate with her parents. Patient reiterated she feels comfortable on the unit and denied challenges with sleep and appetite, states energy level remains good. Patient remains easily distracted, generally redirectable, and presented with no signs of acute distress. Patient denied symptoms of physical pain. VITAL SIGNS: See below NEW TEST RESULTS: EKG from 03/22/16 - SINUS RHYTHM, Within normal limits. Repolarization has normalized in comparison to 02/28/2016. Depakote level on was 94.8 CURRENT MEDICATIONS: See below MENTAL STATUS EVALUATION: Appearance -20 year old woman, appears stated age, fair grooming/hygiene, dressed in own clothing, displays prolonged, fixed gaze Behavior - no psychomotor agitation noted, calm, engageable Attitude -anxious, cooperative with interview Speech - spontaneous, tangential at times, normal volume Thought content -denies suicidal/homicidal ideation, denies audiovisual hallucinations, denies urge to engage in self-injurious behavior, denies paranoia and compulsions, may be responding to internal stimuli; denies audiovisual hallucinations but does appear to be internally preoccupied, remains preoccupied with God and discharge to home of friends, reiterates today she believe manual writer can see her thoughts. Thought process -illogical at times, perseverative, paranoid Mood - "I'm feeling ok, close to God and I want to discharge to live with Shay," less mood lability noted, no tearfulness today Affect -blunted but brightens at times, smiles inappropriately at times Cognition - grossly intact Orientation - person and place, unable to assess orientation to time Insight and Judgement: Remain poor ASSESSMENT: Patient remains visible, is attending groups, and indicates groups continue to be helpful. Patient states she feels emotionally "numb" and states she continues to experience blurred vision. Patient indicates she is agreeable to trial of reduced Depakote in effort to address symptoms of blurred vision in the event they are medication side effect, and is agreeable to trialing Abilify dose increase in effort to further reduce symptoms of psychosis and delusional thinking. Patient remains religiously preoccupied and paranoid, she denies symptoms of anxiety and states she does not feel she needs Klonopin any longer, was reminded Klonopin has been changed to as needed dosing and was encouraged to not request medication if she does not feel she needs as this may be contributing to her sensation of numbness. Patient continues to desire discharge to home of friends but is today willing to sign BECKY for advertising operations coordinator to speak with parents. Patient remains aware that the discharge plan is currently transfer to [facility]. Patient is able to effectively engage in the safety planning process and verbalizes awareness of how to access staff support on the unit if needed. Will monitor patient for medication side effects and will monitor for need for medication dosing adjustment. DIAGNOSES: Schizophreniform disorder MANAGEMENT PLAN: Increase Abilify to 10 mg po q am and 20 mg po q hs. Decrease Depakote to 250 mg po BID. Continue trazodone 100 mg at bedtime PRN. Klonopin 0.5 mg po BID has been changed to PRN, pt was encouraged to limit use to when needed. Maintain safety precautions Patient to continue to attend groups and participate in unit programming to develop coping strategies Engage patient in discharge planning process and arrange meeting with family to evaluate safe discharge plan options, including transfer to [facility] Patient to follow up with PCM upon discharge Vital Signs Vital Sign - Last 24 Hours 03/28/16 03/28/16 03/29/16 18:00 18:00 06:29 Temp 98.1 98.1 95.3 Pulse 118 118 110 Resp 16 16 16 B/P 130/82 130/82 130/76 O2 Delivery Room Air Room Air Current Medications Current Medications Acetaminophen (Tylenol) 650 mg Q6HP PRN PO HEADACHE or DISCOMFORT; Start 03/09 at 16:30; Stop 04/08/16 at 16:29 Al Hydrox/Mg Hydrox/Simethicone (Mylanta) 30 ml Q4HP PRN PO HEARTBURN/ INDIGESTION; Start 03/09/16 at 16:30; Stop 04/08/16 at 16:29 Aripiprazole (AbiLIFY) 5 mg NOW ONCE PO ; Start 03/29/16 at 14:15; Stop 03/29/16 at 14:16 Aripiprazole (AbiLIFY) 5 mg QHS PO Last administered on 03/12/16at 21:48; Start 03/10/16 at 21:00; Stop 03/13/16 at 10:09; Status DC Aripiprazole (AbiLIFY) 10 mg QAM PO ; Start 03/30/16 at 09:00; Stop 04/29/16 at 08 :59 Aripiprazole (AbiLIFY) 10 mg QHS PO Last administered on 03/13/16at 21:46; Start 03/13/16 at 21:00; Stop 03/14/16 at 14:00; Status DC Aripiprazole (AbiLIFY) 15 mg QHS PO Last administered on 03/20/16at 20:20; Start 03/14/16 at 21:00; Stop 03/21/16 at 11:10; Status DC Aripiprazole (AbiLIFY) 20 mg QHS PO Last administered on 03/28/16t 21:20; Start 03/21/16 at 21:00; Stop 04/20/16 at 20:59 Benztropine Mesylate (Cogentin) 0.5 mg BID PO Last administered on 03/14/16at 09:27; Start 03/13/16 at 21:00; Stop 03/14/16 at 13:54; Status DC Benztropine Mesylate (Cogentin) 1 mg Q6HP PRN PO EPSE; Start 03/18/16 at 10:45 ; Stop 04/17/16 at 10:44 Benztropine Mesylate (Cogentin) 2 mg BID PO Last administered on 03/13/16at 08: 59; Start 03/09/16 at 21:00; Stop 03/13/16 at 10:10; Status DC Citalopram Hydrobromide (CeleXA) 20 mg DAILY PO Last administered on at 08:05; Start 03/10/16 at 09:00; Stop 03/15/16 at 10:17; Status DC Clonazepam (KlonoPIN) 0.5 mg BID PO Last administered on 03/27/16 22:11; Start 03/10/16 at 09:00; Stop 03/28/16 at 11:22; Status DC Clonazepam (KlonoPIN) 0.5 mg BID PRN PO ANXIETY Last administered on 03/29/16 09:40; Start 03/28/16 at 11:30; Stop 04/04/16 at 11:29 Divalproex Sodium (Depakote) 250 mg BID PO ; Start 03/29/16 at 21:00; Stop at 21:00 Divalproex Sodium (Depakote) 250 mg BID PO Last administered on 03/16/16 08: 21; Start 03/15/16 at 09:00; Stop 03/16/16 at 12:06; Status DC Divalproex Sodium (Depakote) 250 mg QAM PO Last administered on 03/17/16at 09: 06; Start 03/17/16 at 09:00; Stop 03/17/16 at 14:35; Status DC Divalproex Sodium (Depakote) 500 mg BID PO Last administered on 03/29/16 09:40 ; Start 03/17/16 at 21:00; Stop 03/29/16 at 13:51; Status DC Divalproex Sodium (Depakote) 500 mg ONCE ONCE PO Last administered on at 21:59; Start 03/19/16 at 21:45; Stop 03/19/16 at 21:46; Status DC Divalproex Sodium (Depakote) 500 mg QHS PO Last administered on 03/16/16at 20: 29; Start 03/16/16 at 21:00; Stop 03/17/16 at 14:35; Status DC Haloperidol (Haldol) 5 mg Q6HP PRN PO AGITATION Last administered on 03/27/16 10:50; Start 03/18/16 at 10:45; Stop 04/17/16 at 10:44 Home Med (Med Rec Complete!) ASDIRECTED XX ; Start 03/09/16 at 16:45; Stop at 16:45; Status DC Lorazepam (Ativan) 1 mg Q6HP PRN PO ANXIETY/agitation Last administered on at 12:02; Start 03/10/16 at 14:30; Stop 03/28/16 at 11:22; Status DC Magnesium Hydroxide (Milk Of Magnesia) 30 ml DAILYPRN PRN PO CONSTIPATION; Start 03/09/16 at 16:30; Stop 04/08/16 at 16:29 Non-Formulary Medication ( See Comment Field Below ) SEE COMMENTS SECTION 1T @10 XX ; Start 03/24/16 at 10:00; Stop 03/24/16 at 10:00; Status DC Non-Formulary Medication ( See Comment Field Below ) SEE LABEL COMMENTS DAILY XX ; Start 03/22/16 at 09:00; Stop 03/22/16 at 09:43; Status DC Non-Formulary Medication ( See Comment Field Below ) SEE LABEL COMMENTS SECTION 1T@10 XX Last administered on 03/24/16at 09:32; Start 03/24/16 at 10: 00; Stop 03/25/16 at 00:00; Status DC Risperidone (RisperDAL) 0.5 mg BID PO Last administered on 03/14/16at 09:26; Start 03/13/16 at 21:00; Stop 03/14/16 at 13:54; Status DC Risperidone (RisperDAL) 1 mg BID PO Last administered on 03/13/16at 08:59; Start 03/10/16 at 21:00; Stop 03/13/16 at 10:09; Status DC Risperidone (RisperDAL) 2 mg BID PO Last administered on 03/10/16at 08:15; Start 03/09/16 at 21:00; Stop 03/10/16 at 12:52; Status DC Trazodone HCl (Desyrel) 100 mg QHSP PRN PO INSOMNIA Last administered on t 01:59; Start 03/09/16 at 16:30; Stop 04/08/16 at 16:29 Tuberculin PPD (Aplisol, Ppd) 5 units 1T@10 ID Last administered on 03/22/16at 13:43; Start 03/22/16 at 10:00; Stop 03/22/16 at 23:59; Status DC Tuberculin PPD (Aplisol, Ppd) 5 units NOW ONCE ID ; Start 03/22/16 at 08:15; Stop 03/22/16 at 09:28; Status DC Allergies Coded Allergies: No Known Allergies (Unverified , 02/26/16) Tona Norman Mar 29, 2016 15:16
[2016-03-29 18:00] VITALS: BP 112/79
[2016-03-29] MEDS: ARIPiprazole 10 MG TAB PO SCH (21:30)
[2016-03-29] MEDS: DIVALPROEX 250 MG TAB PO SCH (21:30)
[2016-03-30 06:34] VITALS: BP 134/64
[2016-03-30] MEDS: ARIPiprazole 10 MG TAB PO SCH ×3 (08:39→21:54)
[2016-03-30] MEDS: DIVALPROEX 250 MG TAB PO SCH ×2 (08:39→21:30)
[2016-03-30 18:00] VITALS: BP 120/74
--- NOTE | 2016-03-30 19:26 | IPNPDOC ---
[facility] Progress Note Progress Note DATE: 03/30/16 HISTORY: Patient was seen today to evaluate treatment progress on the inpatient unit. Patient was observed to be lying in bed resting between groups are readily got up to meet with internal communications writer in office. Patient indicated she was cold from getting out of bed where she was warm, was observed to be shivering but once she warmed up no shivering or hand tremor was observed. Patient informs internal communications writer she is not sure if she continues to experience blurred vision, has not noticed today, agrees to evaluate. Patient states she feels "more like myself, more Luci today." Indicates she feels Abilify dose increase is helpful and denies medication side effects. Patient reports reduced mood lability and no tearfulness is noted during today's interaction. Patient remains easily engaged, continues to be visible in milieu, engages with peers and has been attending groups. Patient denies symptoms of anxiety and depression , denied suicidal and homicidal ideation, denied audiovisual hallucinations, and denied urge to engage in self-injurious behavior. Patient states she feels less "numb," is observed to have more spontaneous hand gestures and eye movement while speaking. However patient remains religiously preoccupied and makes reference to feeling guilty about prior drug use and continues to believe that God wants her to be discharged of [facility]. Patient today asks internal communications writer why BECKY needs to be signed to speak with parents parents, internal communications writer reiterates potential usefulness in discharge planning, patient today elects not to sign BECKY. Patient reiterated desire to discharge to the home of friends [facility] but he is able to verbalize awareness that current plan is to transfer to long-term care. Patient denied challenges with sleep and appetite, states energy level remains normal. Patient denies symptoms of physical pain. VITAL SIGNS: See below NEW TEST RESULTS: EKG from 03/22/16 - SINUS RHYTHM, Within normal limits. Repolarization has normalized in comparison to 02/28/2016. Depakote level on was 94.8 CURRENT MEDICATIONS: See below MENTAL STATUS EVALUATION: Appearance -20 year old woman, appears stated age, fair grooming/hygiene, dressed in own clothing, displays reduction to prolonged gaze with more spontaneous eye movements and hand gestures Behavior - no psychomotor agitation noted, calm, engageable Attitude -less anxious anxious, cooperative with interview Speech - spontaneous, tangential at times, normal volume Thought content -denies suicidal/homicidal ideation, denies audiovisual hallucinations, denies urge to engage in self-injurious behavior, denies paranoia and compulsions, does not appear to be responding to internal stimuli; denies audiovisual hallucinations, appears less internally preoccupied, remains preoccupied with God and discharge to home of friends. Thought process -illogical at times, less perseverative, less paranoid Mood - "I'm feeling better." Reports less mood lability noted, no tearfulness today Affect -blunted but brightens more frequently, smiling appears to be or appropriate but continues to smile inappropriately at times Cognition - grossly intact Orientation - person and place, unable to assess orientation to time Insight and Judgement: Remain poor ASSESSMENT: Patient remains visible, is attending groups, and indicates groups continue to be helpful. Patient indicates she thinks dose increase to Abilify is helping to improve mood, denies lability, indicates she feels she is "thinking clearer." Patient denies medication side effects. Rail Manager observes patient to be "shivering from the cold" when she first gets out of bed to meet with internal communications writer, however, patient is able to stop shaking once she is seated comfortably in office. Patient appeas less distracted today, smiles more frequently and appropriately, is less tangential. Patient is verbalizes guilt related to previous drug use, states she feels that's why God is important to her. Patient appears to be more spontaneous with speech and mannerisms, but does also remain delusional. Patient indicates she has not needed to use Klonopin for anxiety today. Patient continues to desire discharge to home of friends and today is unwilling to sign [facility] for clinical research nurse coordinator to speak with parents. Patient remains aware that the discharge plan is currently transfer to [facility]. Patient is able to effectively engage in the safety planning process and verbalizes awareness of how to access staff support on the unit if needed. Will monitor continue to honor patient's response to Abilify dose increase and Depakote dose decrease, will also continue to assess if patient is experiencing medication side effects. DIAGNOSES: Schizophreniform disorder MANAGEMENT PLAN: Continue Abilify 10 mg po q am and 20 mg po q hs. Continue Depakote 250 mg po BID. Continue trazodone 100 mg at bedtime PRN. Klonopin 0.5 mg po BID has been changed to PRN Maintain safety precautions Patient to continue to attend groups and participate in unit programming to develop coping strategies Engage patient in discharge planning process and arrange meeting with family to evaluate safe discharge plan options, including transfer to [facility] Patient to follow up with PCM upon discharge Vital Signs Vital Sign - Last 24 Hours 03/30/16 06:34 Temp 97.2 Pulse 91 Resp 16 B/P 134/64 Current Medications Current Medications Acetaminophen (Tylenol) 650 mg Q6HP PRN PO HEADACHE or DISCOMFORT; Start 03/09 at 16:30; Stop 04/08/16 at 16:29 Al Hydrox/Mg Hydrox/Simethicone (Mylanta) 30 ml Q4HP PRN PO HEARTBURN/ INDIGESTION; Start 03/09/16 at 16:30; Stop 04/08/16 at 16:29 Aripiprazole (AbiLIFY) 5 mg NOW ONCE PO Last administered on 03/29/16 14:30; Start 03/29/16 at 14:15; Stop 03/29/16 at 14:16; Status DC Aripiprazole (AbiLIFY) 5 mg QHS PO Last administered on 03/12/16at 21:48; Start 03/10/16 at 21:00; Stop 03/13/16 at 10:09; Status DC Aripiprazole (AbiLIFY) 10 mg QAM PO Last administered on 03/30/16 08:39; Start 03/30/16 at 09:00; Stop 04/29/16 at 08:59 Aripiprazole (AbiLIFY) 10 mg QHS PO Last administered on 03/13/16at 21:46; Start 03/13/16 at 21:00; Stop 03/14/16 at 14:00; Status DC Aripiprazole (AbiLIFY) 15 mg QHS PO Last administered on 03/20/16at 20:20; Start 03/14/16 at 21:00; Stop 03/21/16 at 11:10; Status DC Aripiprazole (AbiLIFY) 20 mg QHS PO Last administered on 03/29/16 21:30; Start 03/21/16 at 21:00; Stop 04/20/16 at 20:59 Benztropine Mesylate (Cogentin) 0.5 mg BID PO Last administered on 03/14/16at 09:27; Start 03/13/16 at 21:00; Stop 03/14/16 at 13:54; Status DC Benztropine Mesylate (Cogentin) 1 mg Q6HP PRN PO EPSE; Start 03/18/16 at 10:45 ; Stop 04/17/16 at 10:44 Benztropine Mesylate (Cogentin) 2 mg BID PO Last administered on 03/13/16at 08: 59; Start 03/09/16 at 21:00; Stop 03/13/16 at 10:10; Status DC Citalopram Hydrobromide (CeleXA) 20 mg DAILY PO Last administered on at 08:05; Start 03/10/16 at 09:00; Stop 03/15/16 at 10:17; Status DC Clonazepam (KlonoPIN) 0.5 mg BID PO Last administered on 03/27/16 22:11; Start 03/10/16 at 09:00; Stop 03/28/16 at 11:22; Status DC Clonazepam (KlonoPIN) 0.5 mg BID PRN PO ANXIETY Last administered on 03/29/16 09:40; Start 03/28/16 at 11:30; Stop 04/04/16 at 11:29 Divalproex Sodium (Depakote) 250 mg BID PO Last administered on 03/30/16 08:39 ; Start 03/29/16 at 21:00; Stop 04/29/16 at 21:00 Divalproex Sodium (Depakote) 250 mg BID PO Last administered on 03/16/16at 08: 21; Start 03/15/16 at 09:00; Stop 03/16/16 at 12:06; Status DC Divalproex Sodium (Depakote) 250 mg QAM PO Last administered on 03/17/16at 09: 06; Start 03/17/16 at 09:00; Stop 03/17/16 at 14:35; Status DC Divalproex Sodium (Depakote) 500 mg BID PO Last administered on 03/29/16 09:40 ; Start 03/17/16 at 21:00; Stop 03/29/16 at 13:51; Status DC Divalproex Sodium (Depakote) 500 mg ONCE ONCE PO Last administered on at 21:59; Start 03/19/16 at 21:45; Stop 03/19/16 at 21:46; Status DC Divalproex Sodium (Depakote) 500 mg QHS PO Last administered on 03/16/16at 20: 29; Start 03/16/16 at 21:00; Stop 03/17/16 at 14:35; Status DC Haloperidol (Haldol) 5 mg Q6HP PRN PO AGITATION Last administered on 03/27/16t 10:50; Start 03/18/16 at 10:45; Stop 04/17/16 at 10:44 Home Med (Med Rec Complete!) ASDIRECTED XX ; Start 03/09/16 at 16:45; Stop at 16:45; Status DC Lorazepam (Ativan) 1 mg Q6HP PRN PO ANXIETY/agitation Last administered on at 12:02; Start 03/10/16 at 14:30; Stop 03/28/16 at 11:22; Status DC Magnesium Hydroxide (Milk Of Magnesia) 30 ml DAILYPRN PRN PO CONSTIPATION; Start 03/09/16 at 16:30; Stop 04/08/16 at 16:29 Non-Formulary Medication ( See Comment Field Below ) SEE COMMENTS SECTION 1T @10 XX ; Start 03/24/16 at 10:00; Stop 03/24/16 at 10:00; Status DC Non-Formulary Medication ( See Comment Field Below ) SEE LABEL COMMENTS DAILY XX ; Start 03/22/16 at 09:00; Stop 03/22/16 at 09:43; Status DC Non-Formulary Medication ( See Comment Field Below ) SEE LABEL COMMENTS SECTION 1T@10 XX Last administered on 03/24/16at 09:32; Start 03/24/16 at 10: 00; Stop 03/25/16 at 00:00; Status DC Risperidone (RisperDAL) 0.5 mg BID PO Last administered on 03/14/16at 09:26; Start 03/13/16 at 21:00; Stop 03/14/16 at 13:54; Status DC Risperidone (RisperDAL) 1 mg BID PO Last administered on 03/13/16at 08:59; Start 03/10/16 at 21:00; Stop 03/13/16 at 10:09; Status DC Risperidone (RisperDAL) 2 mg BID PO Last administered on 03/10/16at 08:15; Start 03/09/16 at 21:00; Stop 03/10/16 at 12:52; Status DC Trazodone HCl (Desyrel) 100 mg QHSP PRN PO INSOMNIA Last administered on t 21:30; Start 03/09/16 at 16:30; Stop 04/08/16 at 16:29 Tuberculin PPD (Aplisol, Ppd) 5 units 1T@10 ID Last administered on 03/22/16at 13:43; Start 03/22/16 at 10:00; Stop 03/22/16 at 23:59; Status DC Tuberculin PPD (Aplisol, Ppd) 5 units NOW ONCE ID ; Start 03/22/16 at 08:15; Stop 03/22/16 at 09:28; Status DC Allergies Coded Allergies: No Known Allergies (Unverified , 02/26/16) Tona Norman Mar 30, 2016 19:26
[2016-03-30] MEDS: traZODone 50 MG TAB PO PRN (21:31)
[2016-03-31 06:31] VITALS: BP 125/77
[2016-03-31] MEDS: ARIPiprazole 10 MG TAB PO SCH ×2 (08:39→20:10)
[2016-03-31] MEDS: DIVALPROEX 250 MG TAB PO SCH (08:39)
[2016-03-31] MEDS ORDERED: DIVALPROEX 250 MG TAB PO ONE (10:30)
--- NOTE | 2016-03-31 13:29 | IPNPDOC ---
Assessment/Plan Date Seen The patient was seen on 03/31/16. Problems Problems: (1) Tachycardia Status: Chronic Response to Treatment: Stable Problem Text: * HR trends 91-120 * TSH WNL. * Update CBC/BMP. * Update EKG. * Pt's Psych meds could contribute to Tachycardia including Abilify/Cogentin. Plan / VTE VTE Prophylaxis Ordered?: No (ambulatory) Subjective Review of Systems CC/HPI The patient is a 20-year-old female admitted with a reason for visit of Major Depressive Disorder. Events since last encounter Pt noted to have HR trend 90-112. Pt asymptomatic. Pulmonary: Denies: Cough, Dyspnea Cardiovascular: Denies: Chest Pain, Lt Headedness, Orthopnea, Palpitations, Paroxysmal Noc. Dyspnea Objective Physical Examination General Exam: Positive: Alert Eye Exam: Positive: PERRLA ENT Exam: Positive: Atraumatic Chest Exam: Positive: Clear to auscultation, Normal air movement Heart Exam: Positive: Normal S1, Normal S2, Rate Normal, Regular Rhythm, Negative: Murmurs, Rubs Skin Exam: Positive: Nl turgor and temperature Vital Signs/I&O Vital Signs Date Time Temp Pulse Resp B/P Pulse Ox O2 Delivery O2 Flow Rate FiO2 03/31/16 06:31 97.3 120 19 125/77 03/30/16 18:00 Room Air Darlene Benitez Mar 31, 2016 13:29
[2016-03-31 16:18] LABS: MEAN CORPUSCULAR HEMOGLOBIN 29.5 pg (27.0-33.0); MEAN CORPUSCULAR HGB CONC 34.2 g/dl (32.0-36.5); MEAN CORPUSCULAR VOLUME 86.3 fl (80.0-96.0); WHITE BLOOD COUNT 8.9 K/mm3 (4.0-10.0)
[2016-03-31 17:43] LABS: ANION GAP 9 MEQ/L (8-16); BLOOD UREA NITROGEN 10 MG/DL (7-18); CALCIUM LEVEL 8.7 MG/DL (8.5-10.1); CARBON DIOXIDE LEVEL 25 MEQ/L (21-32); CHLORIDE LEVEL 107 MEQ/L (98-107); CHOLESTEROL LEVEL 143 MG/DL (<200); CREATININE FOR GFR 0.81 MG/DL (0.55-1.02); GLUCOSE, FASTING 107 MG/DL (70-105); POTASSIUM SERUM 4.1 MEQ/L (3.5-5.1); SODIUM LEVEL 141 MEQ/L (136-145); TRIGLYCERIDES LEVEL 70 MG/DL (<150)
[2016-03-31 18:23] VITALS: BP 120/79
--- NOTE | 2016-03-31 19:21 | IPNPDOC ---
[facility] Progress Note Progress Note DATE: 03/31/16 HISTORY: Patient was seen today to evaluate treatment progress on the inpatient unit. Patient was observed to be walking in head, crying, stating she feels God is angry with her and "I'm scared of the devil, why do I think I deserve some much pain?" Patient was carying a "letter" she had written, initially declined to share with director underwriter sales but then agreed to walk with director underwriter sales to office to meet and to allow director underwriter sales to read letter. Letter was clearly written, expressed ongoing episcopalian preoccupation, also noted the patient had tried to hurt herself with 2 pencils and by "wrapping my head around a towel." A copy of the letter was furnished to nursing for monitoring purposes. Patient denied all suicidal and homicidal ideation, indicated she felt more depressed and more anxious, indicated she felt her mood was more labile, denied audiovisual hallucinations, and denied urge to engage in self-injurious behavior. Patient has not been able to attend groups today due to mood lability and lack of focus. Patient denied medication side effects and none were observed, she was able to verbalize that the reduction to her Depakote may have impacted her mood stability, she denied experiencing blurred vision. Ruffling Machine Operator to increase Depakote back up to 500 mg by mouth twice a day, patient refused to take a now dose of 250 mg stating she "I like my emotions, I don't want to feel numb." Patient also declined to take Klonopin PRN to address symptoms of anxiety. Patient today declines to sign BECKY or human service coordinator to speak with patient's parents. Patient denied challenges with sleep and appetite, states energy level remains normal. Patient denies symptoms of physical pain. VITAL SIGNS: See below. Patient has been tachycardic, PA was asked to evaluate. NEW TEST RESULTS: EKG from 03/22/16 - SINUS RHYTHM, Within normal limits. Repolarization has normalized in comparison to 02/28/2016. Depakote level on was 94.8 Lipid profile ordered 03/31/16 in preparation for Zyprexa initiation CURRENT MEDICATIONS: See below MENTAL STATUS EVALUATION: Appearance -20 year old woman, appears stated age, fair grooming/hygiene, dressed in own clothing, exhibits prolonged gaze, no tremor noted or reported, denies experiencing blurred vision. Behavior - intermittent psychomotor agitation noted, remains calm, generally engageable Attitude -anxious, cooperative with interview Speech - tangential, normal volume Thought content -denies suicidal/homicidal ideation, denies audiovisual hallucinations, denies urge to engage in self-injurious behavior, appears paranoid, denies compulsions, may be responding to internal stimuli; denies audiovisual hallucinations, appears internally preoccupied, remains preoccupied with God. Thought process -illogical, perseverative, paranoid Mood - "I'm feeling sad." Displays increased mood lability, intermittent tearfulness today Affect -blunted, less brightening, some inappropriate smiling Cognition - grossly intact Orientation - person and place, unable to assess orientation to time Insight and Judgement: Remain poor ASSESSMENT: Patient remains visible, is walking in hallways, is observed to be crying at times, expresses guilt, remorse, feels she is a disappointment to God. In an effort to reduce what may have been medication side effect of blurred vision, Depakote level was reduced, patient has not responded well to reduction , mood is now noticeably more labile. Will continue Abilify and will increase Depakote to previous dose of 500 mg twice a day. Will also trial an hs dose of Zyprexa 5 mg in effort to further reduce patient's symptoms of psychosis. If patient responds well to Zyprexa, will evaluate cross titration from Abilify to Zyprexa. Patient verbalized understanding of the plan and indicated she is in agreement. Patient remains aware that the discharge plan is currently transfer to [facility]. Patient denies all suicidal and homicidal thinking, indicates letter written earlier in the day was "stuff going through my head earlier, not how I feel; I don't want to ," nursing has been made aware of need to monitor. Patient is able to effectively engage in the safety planning process and verbalizes awareness of how to access staff support on the unit if needed. Will into continue to monitor patient's response to medications and for medication side effects. DIAGNOSES: Schizophreniform disorder MANAGEMENT PLAN: Increase Depakote to 500 mg by mouth twice a day, continue Abilify 10 mg po q am and 20 mg po q hs, initiate Zyprexa 5 mg by mouth daily at bedtime. Continue trazodone 100 mg at bedtime PRN. Klonopin 0.5 mg po BID has been changed to PRN Lipid profile ordered PA has been asked to evaluate patient's tachycardia Maintain safety precautions Patient to continue to attend groups and participate in unit programming to develop coping strategies Engage patient in discharge planning process and arrange meeting with family, if patient will allow, to evaluate safe discharge plan options, including transfer to [facility] Patient to follow up with PCM upon discharge Vital Signs Vital Sign - Last 24 Hours 03/31/16 03/31/16 06:31 18:23 Temp 97.3 97.9 Pulse 120 113 Resp 19 16 B/P 125/77 120/79 Laboratory Data 24H Labs Laboratory Tests 2 03/31/16 15:51: Anion Gap 9, Calcium Level 8.7, Triglycerides Level 70, Cholesterol Level 143, HDL Cholesterol 48, LDL Cholesterol 81.0, Cholesterol/HDL Ratio 2.979, Non-HDL Cholesterol (LDL + VLDL) 95 Current Medications Current Medications Acetaminophen (Tylenol) 650 mg Q6HP PRN PO HEADACHE or DISCOMFORT; Start 03/09 at 16:30; Stop 04/08/16 at 16:29 Al Hydrox/Mg Hydrox/Simethicone (Mylanta) 30 ml Q4HP PRN PO HEARTBURN/ INDIGESTION; Start 03/09/16 at 16:30; Stop 04/08/16 at 16:29 Aripiprazole (AbiLIFY) 5 mg NOW ONCE PO Last administered on 03/29/16 14:30; Start 03/29/16 at 14:15; Stop 03/29/16 at 14:16; Status DC Aripiprazole (AbiLIFY) 5 mg QHS PO Last administered on 03/12/16at 21:48; Start 03/10/16 at 21:00; Stop 03/13/16 at 10:09; Status DC Aripiprazole (AbiLIFY) 10 mg QAM PO Last administered on 03/31/16 08:39; Start 03/30/16 at 09:00; Stop 04/29/16 at 08:59 Aripiprazole (AbiLIFY) 10 mg QHS PO Last administered on 03/13/16at 21:46; Start 03/13/16 at 21:00; Stop 03/14/16 at 14:00; Status DC Aripiprazole (AbiLIFY) 15 mg QHS PO Last administered on 03/20/16at 20:20; Start 03/14/16 at 21:00; Stop 03/21/16 at 11:10; Status DC Aripiprazole (AbiLIFY) 20 mg QHS PO Last administered on 03/30/16 21:54; Start 03/21/16 at 21:00; Stop 04/20/16 at 20:59 Benztropine Mesylate (Cogentin) 0.5 mg BID PO Last administered on 03/14/16at 09:27; Start 03/13/16 at 21:00; Stop 03/14/16 at 13:54; Status DC Benztropine Mesylate (Cogentin) 1 mg Q6HP PRN PO EPSE; Start 03/18/16 at 10:45 ; Stop 04/17/16 at 10:44 Benztropine Mesylate (Cogentin) 2 mg BID PO Last administered on 03/13/16at 08: 59; Start 03/09/16 at 21:00; Stop 03/13/16 at 10:10; Status DC Citalopram Hydrobromide (CeleXA) 20 mg DAILY PO Last administered on at 08:05; Start 03/10/16 at 09:00; Stop 03/15/16 at 10:17; Status DC Clonazepam (KlonoPIN) 0.5 mg BID PO Last administered on 03/27/16 22:11; Start 03/10/16 at 09:00; Stop 03/28/16 at 11:22; Status DC Clonazepam (KlonoPIN) 0.5 mg BID PRN PO ANXIETY Last administered on 03/29/16 09:40; Start 03/28/16 at 11:30; Stop 04/04/16 at 11:29 Divalproex Sodium (Depakote) 250 mg BID PO Last administered on 03/31/16 08:39 ; Start 03/29/16 at 21:00; Stop 03/31/16 at 10:25; Status DC Divalproex Sodium (Depakote) 250 mg BID PO Last administered on 03/16/16at 08: 21; Start 03/15/16 at 09:00; Stop 03/16/16 at 12:06; Status DC Divalproex Sodium (Depakote) 250 mg NOW ONCE PO ; Start 03/31/16 at 10:30; Stop 03/31/16 at 10:31; Status DC Divalproex Sodium (Depakote) 250 mg QAM PO Last administered on 03/17/16at 09: 06; Start 03/17/16 at 09:00; Stop 03/17/16 at 14:35; Status DC Divalproex Sodium (Depakote) 500 mg BID PO ; Start 03/31/16 at 21:00; Stop at 20:59 Divalproex Sodium (Depakote) 500 mg BID PO Last administered on 03/29/16 09:40 ; Start 03/17/16 at 21:00; Stop 03/29/16 at 13:51; Status DC Divalproex Sodium (Depakote) 500 mg ONCE ONCE PO Last administered on at 21:59; Start 03/19/16 at 21:45; Stop 03/19/16 at 21:46; Status DC Divalproex Sodium (Depakote) 500 mg QHS PO Last administered on 03/16/16at 20: 29; Start 03/16/16 at 21:00; Stop 03/17/16 at 14:35; Status DC Haloperidol (Haldol) 5 mg Q6HP PRN PO AGITATION Last administered on 03/27/16t 10:50; Start 03/18/16 at 10:45; Stop 04/17/16 at 10:44 Home Med (Med Rec Complete!) ASDIRECTED XX ; Start 03/09/16 at 16:45; Stop at 16:45; Status DC Lorazepam (Ativan) 1 mg Q6HP PRN PO ANXIETY/agitation Last administered on at 12:02; Start 03/10/16 at 14:30; Stop 03/28/16 at 11:22; Status DC Magnesium Hydroxide (Milk Of Magnesia) 30 ml DAILYPRN PRN PO CONSTIPATION; Start 03/09/16 at 16:30; Stop 04/08/16 at 16:29 Non-Formulary Medication ( See Comment Field Below ) SEE COMMENTS SECTION 1T @10 XX ; Start 03/24/16 at 10:00; Stop 03/24/16 at 10:00; Status DC Non-Formulary Medication ( See Comment Field Below ) SEE LABEL COMMENTS DAILY XX ; Start 03/22/16 at 09:00; Stop 03/22/16 at 09:43; Status DC Non-Formulary Medication ( See Comment Field Below ) SEE LABEL COMMENTS SECTION 1T@10 XX Last administered on 03/24/16at 09:32; Start 03/24/16 at 10: 00; Stop 03/25/16 at 00:00; Status DC Olanzapine (ZyPREXA) 5 mg QHS PO ; Start 03/31/16 at 21:00; Stop 04/30/16 at 20:59 Risperidone (RisperDAL) 0.5 mg BID PO Last administered on 03/14/16at 09:26; Start 03/13/16 at 21:00; Stop 03/14/16 at 13:54; Status DC Risperidone (RisperDAL) 1 mg BID PO Last administered on 03/13/16at 08:59; Start 03/10/16 at 21:00; Stop 03/13/16 at 10:09; Status DC Risperidone (RisperDAL) 2 mg BID PO Last administered on 03/10/16at 08:15; Start 03/09/16 at 21:00; Stop 03/10/16 at 12:52; Status DC Trazodone HCl (Desyrel) 100 mg QHSP PRN PO INSOMNIA Last administered on t 21:31; Start 03/09/16 at 16:30; Stop 04/08/16 at 16:29 Tuberculin PPD (Aplisol, Ppd) 5 units 1T@10 ID Last administered on 03/22/16at 13:43; Start 03/22/16 at 10:00; Stop 03/22/16 at 23:59; Status DC Tuberculin PPD (Aplisol, Ppd) 5 units NOW ONCE ID ; Start 03/22/16 at 08:15; Stop 03/22/16 at 09:28; Status DC Allergies Coded Allergies: No Known Allergies (Unverified , 02/26/16) Tona Norman Mar 31, 2016 19:21
[2016-03-31] MEDS: DIVALPROEX 500 MG TAB PO SCH (20:10)
[2016-03-31] MEDS: OLANZapine 5 MG TAB PO SCH (20:10)
[2016-04-01 06:48] VITALS: BP 122/57
[2016-04-01] MEDS: ARIPiprazole 10 MG TAB PO SCH ×2 (08:04→20:50)
[2016-04-01] MEDS: DIVALPROEX 500 MG TAB PO SCH ×2 (08:04→20:50)
--- NOTE | 2016-04-01 14:59 | ECGEPIP ---
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
[2016-04-01 18:00] VITALS: BP 121/65
[2016-04-01] MEDS: OLANZapine 5 MG TAB PO SCH (20:50)
[2016-04-01] MEDS: traZODone 50 MG TAB PO PRN (22:35)
[2016-04-02 06:43] VITALS: BP 138/80
[2016-04-02] MEDS: ARIPiprazole 10 MG TAB PO SCH ×2 (08:16→21:28)
[2016-04-02] MEDS: DIVALPROEX 500 MG TAB PO SCH ×2 (08:16→21:28)
[2016-04-02] MEDS: ACETAMINOPHEN TAB 650MG DOSE (2X325MG) PO PRN (09:55)
[2016-04-02 18:37] VITALS: BP 119/72
[2016-04-02] MEDS: OLANZapine 5 MG TAB PO SCH (21:28)
[2016-04-02] MEDS: HALOPERIDOL 5 MG TAB PO PRN (21:28)
[2016-04-02] MEDS: traZODone 50 MG TAB PO PRN (22:25)
[2016-04-03 06:38] VITALS: BP 114/60
[2016-04-03] MEDS: ARIPiprazole 10 MG TAB PO SCH ×2 (08:39→21:00)
[2016-04-03] MEDS: DIVALPROEX 500 MG TAB PO SCH ×2 (08:39→21:00)
[2016-04-03 18:29] VITALS: BP 111/66
--- NOTE | 2016-04-03 20:47 | IPNPDOC ---
[facility] Progress Note Progress Note DATE: 04/03/16 HISTORY: Patient was seen today to evaluate treatment progress on the inpatient unit. Patient was observed to be walking in head, on multiple occasions. Patient denied all suicidal and homicidal ideation, indicated she felt more hopeful and less anxious, denied audiovisual hallucinations, and denied urge to engage in self-injurious behavior. Pt. denies paranoia or delusions but appears to be fixated on God vs. the devil and how that specifically impacts her life. Pt. states "I feel like I am being given signs thru what people say to me". Pt. then states "I think it is God giving me signals". Unknown if patient attended unit activities or groups today. Patient denied medication side effects and none were observed, she denied experiencing blurred vision. Patient denied challenges with sleep and appetite, states energy level remains normal. Patient denies symptoms of physical pain. Addendum: Patient returned to typewriter mechanic's office about 2 hours after initial meeting and assessment. Pt. states "I want a re-do". Pt. then states "The last 2 days have been great I will always have the God signs, no devil signs". VITAL SIGNS: See below. NEW TEST RESULTS: EKG from 03/22/16 - SINUS RHYTHM, Within normal limits. Repolarization has normalized in comparison to 02/28/2016. Depakote level on was 94.8 Lipid profile ordered 03/31/16 in preparation for Zyprexa initiation CURRENT MEDICATIONS: See below. MENTAL STATUS EXAMINATION: Appearance -20 year old woman, appears stated age, fair grooming/hygiene, dressed in own clothing, exhibits prolonged gaze, no tremor noted or reported, denies experiencing blurred vision. Behavior - intermittent psychomotor agitation noted, remains calm, generally engageable Attitude -anxious, cooperative with interview Speech - tangential, normal volume Thought content -denies suicidal/homicidal ideation, denies audiovisual hallucinations, denies urge to engage in self-injurious behavior, appears paranoid, denies compulsions, may be responding to internal stimuli; denies audiovisual hallucinations, appears internally preoccupied, remains preoccupied with God. Thought process -illogical, perseverative, paranoid Mood - "I'm feeling sad." Displays increased mood lability, intermittent tearfulness today Affect -blunted, less brightening, some inappropriate smiling Cognition - grossly intact Orientation - person and place, unable to assess orientation to time Insight and Judgement: Remain poor ASSESSMENT: Patient remains visible, is walking in hallways, expresses guilt, remorse, feels she needs more hope. In an effort to reduce what may have been medication side effect of blurred vision, Depakote level was reduced, patient has not responded well to reduction , mood is now noticeably more labile. Will continue Abilify and will increase Depakote to previous dose of 500 mg twice a day. Will also trial an hs dose of Zyprexa 5 mg in effort to further reduce patient's symptoms of psychosis. If patient responds well to Zyprexa, will evaluate cross titration from Abilify to Zyprexa. Patient verbalized understanding of the plan and indicated she is in agreement. Patient remains aware that the discharge plan is currently transfer to [facility]. Patient denies all suicidal and homicidal thinking. Patient is able to effectively engage in the safety planning process and verbalizes awareness of how to access staff support on the unit if needed. Will into continue to monitor patient's response to medications and for medication side effects. DIAGNOSES: Schizophreniform disorder MANAGEMENT PLAN: Increase Depakote to 500 mg by mouth twice a day, continue Abilify 10 mg po q am and 20 mg po q hs, initiate Zyprexa 5 mg by mouth daily at bedtime. Continue trazodone 100 mg at bedtime PRN. Klonopin 0.5 mg po BID has been changed to PRN Lipid profile ordered PA has been asked to evaluate patient's tachycardia Maintain safety precautions Patient to continue to attend groups and participate in unit programming to develop coping strategies Engage patient in discharge planning process and arrange meeting with family, if patient will allow, to evaluate safe discharge plan options, including transfer to [facility] Patient to follow up with PCM upon discharge Vital Signs Vital Sign - Last 24 Hours 04/03/16 04/03/16 06:38 18:29 Temp 96.9 98.9 Pulse 67 80 Resp 16 16 B/P 114/60 111/66 Current Medications Current Medications Acetaminophen (Tylenol) 650 mg Q6HP PRN PO HEADACHE or DISCOMFORT Last administered on 04/02/16 09:55; Start 03/09/16 at 16:30; Stop 04/08/16 at 16:29 Al Hydrox/Mg Hydrox/Simethicone (Mylanta) 30 ml Q4HP PRN PO HEARTBURN/ INDIGESTION; Start 03/09/16 at 16:30; Stop 04/08/16 at 16:29 Aripiprazole (AbiLIFY) 5 mg NOW ONCE PO Last administered on 03/29/16 14:30; Start 03/29/16 at 14:15; Stop 03/29/16 at 14:16; Status DC Aripiprazole (AbiLIFY) 5 mg QHS PO Last administered on 03/12/16at 21:48; Start 03/10/16 at 21:00; Stop 03/13/16 at 10:09; Status DC Aripiprazole (AbiLIFY) 10 mg QAM PO Last administered on 04/03/16 08:39; Start 03/30/16 at 09:00; Stop 04/29/16 at 08:59 Aripiprazole (AbiLIFY) 10 mg QHS PO Last administered on 03/13/16at 21:46; Start 03/13/16 at 21:00; Stop 03/14/16 at 14:00; Status DC Aripiprazole (AbiLIFY) 15 mg QHS PO Last administered on 03/20/16at 20:20; Start 03/14/16 at 21:00; Stop 03/21/16 at 11:10; Status DC Aripiprazole (AbiLIFY) 20 mg QHS PO Last administered on 04/02/16 21:28; Start 03/21/16 at 21:00; Stop 04/20/16 at 20:59 Benztropine Mesylate (Cogentin) 0.5 mg BID PO Last administered on 03/14/16at 09:27; Start 03/13/16 at 21:00; Stop 03/14/16 at 13:54; Status DC Benztropine Mesylate (Cogentin) 1 mg Q6HP PRN PO EPSE; Start 03/18/16 at 10:45 ; Stop 04/17/16 at 10:44 Benztropine Mesylate (Cogentin) 2 mg BID PO Last administered on 03/13/16at 08: 59; Start 03/09/16 at 21:00; Stop 03/13/16 at 10:10; Status DC Citalopram Hydrobromide (CeleXA) 20 mg DAILY PO Last administered on at 08:05; Start 03/10/16 at 09:00; Stop 03/15/16 at 10:17; Status DC Clonazepam (KlonoPIN) 0.5 mg BID PO Last administered on 03/27/16 22:11; Start 03/10/16 at 09:00; Stop 03/28/16 at 11:22; Status DC Clonazepam (KlonoPIN) 0.5 mg BID PRN PO ANXIETY Last administered on 03/29/16 09:40; Start 03/28/16 at 11:30; Stop 04/04/16 at 11:29 Divalproex Sodium (Depakote) 250 mg BID PO Last administered on 03/31/16 08:39 ; Start 03/29/16 at 21:00; Stop 03/31/16 at 10:25; Status DC Divalproex Sodium (Depakote) 250 mg BID PO Last administered on 03/16/16at 08: 21; Start 03/15/16 at 09:00; Stop 03/16/16 at 12:06; Status DC Divalproex Sodium (Depakote) 250 mg NOW ONCE PO ; Start 03/31/16 at 10:30; Stop 03/31/16 at 10:31; Status DC Divalproex Sodium (Depakote) 250 mg QAM PO Last administered on 03/17/16at 09: 06; Start 03/17/16 at 09:00; Stop 03/17/16 at 14:35; Status DC Divalproex Sodium (Depakote) 500 mg BID PO Last administered on 04/03/16 08:39 ; Start 03/31/16 at 21:00; Stop 04/30/16 at 20:59 Divalproex Sodium (Depakote) 500 mg BID PO Last administered on 03/29/16 09:40 ; Start 03/17/16 at 21:00; Stop 03/29/16 at 13:51; Status DC Divalproex Sodium (Depakote) 500 mg ONCE ONCE PO Last administered on at 21:59; Start 03/19/16 at 21:45; Stop 03/19/16 at 21:46; Status DC Divalproex Sodium (Depakote) 500 mg QHS PO Last administered on 03/16/16at 20: 29; Start 03/16/16 at 21:00; Stop 03/17/16 at 14:35; Status DC Haloperidol (Haldol) 5 mg Q6HP PRN PO AGITATION Last administered on 04/02/16 21:28; Start 03/18/16 at 10:45; Stop 04/17/16 at 10:44 Home Med (Med Rec Complete!) ASDIRECTED XX ; Start 03/09/16 at 16:45; Stop at 16:45; Status DC Lorazepam (Ativan) 1 mg Q6HP PRN PO ANXIETY/agitation Last administered on at 12:02; Start 03/10/16 at 14:30; Stop 03/28/16 at 11:22; Status DC Magnesium Hydroxide (Milk Of Magnesia) 30 ml DAILYPRN PRN PO CONSTIPATION; Start 03/09/16 at 16:30; Stop 04/08/16 at 16:29 Non-Formulary Medication ( See Comment Field Below ) SEE COMMENTS SECTION 1T @10 XX ; Start 03/24/16 at 10:00; Stop 03/24/16 at 10:00; Status DC Non-Formulary Medication ( See Comment Field Below ) SEE LABEL COMMENTS DAILY XX ; Start 03/22/16 at 09:00; Stop 03/22/16 at 09:43; Status DC Non-Formulary Medication ( See Comment Field Below ) SEE LABEL COMMENTS SECTION 1T@10 XX Last administered on 03/24/16at 09:32; Start 03/24/16 at 10: 00; Stop 03/25/16 at 00:00; Status DC Olanzapine (ZyPREXA) 5 mg QHS PO Last administered on 04/02/16 21:28; Start 03/31/16 at 21:00; Stop 04/30/16 at 20:59 Risperidone (RisperDAL) 0.5 mg BID PO Last administered on 03/14/16at 09:26; Start 03/13/16 at 21:00; Stop 03/14/16 at 13:54; Status DC Risperidone (RisperDAL) 1 mg BID PO Last administered on 03/13/16at 08:59; Start 03/10/16 at 21:00; Stop 03/13/16 at 10:09; Status DC Risperidone (RisperDAL) 2 mg BID PO Last administered on 03/10/16at 08:15; Start 03/09/16 at 21:00; Stop 03/10/16 at 12:52; Status DC Trazodone HCl (Desyrel) 100 mg QHSP PRN PO INSOMNIA Last administered on t 22:25; Start 03/09/16 at 16:30; Stop 04/08/16 at 16:29 Tuberculin PPD (Aplisol, Ppd) 5 units 1T@10 ID Last administered on 03/22/16at 13:43; Start 03/22/16 at 10:00; Stop 03/22/16 at 23:59; Status DC Tuberculin PPD (Aplisol, Ppd) 5 units NOW ONCE ID ; Start 03/22/16 at 08:15; Stop 03/22/16 at 09:28; Status DC Allergies Coded Allergies: No Known Allergies (Unverified , 02/26/16) JENNIFER QUIGLEY NP Apr 03, 2016 20:[address] MD Apr 04, 2016 14:24
[2016-04-03] MEDS: OLANZapine 5 MG TAB PO SCH (21:00)
[2016-04-03] MEDS: clonazePAM 0.5 MG TAB PO PRN (21:00)
[2016-04-04 06:09] VITALS: BP 140/77
[2016-04-04] MEDS: ARIPiprazole 10 MG TAB PO SCH ×2 (08:29→20:10)
[2016-04-04] MEDS: clonazePAM 0.5 MG TAB PO PRN (08:29)
[2016-04-04] MEDS: DIVALPROEX 500 MG TAB PO SCH ×2 (08:29→20:10)
[2016-04-04 18:00] VITALS: BP 126/74
--- NOTE | 2016-04-04 19:48 | IPNPDOC ---
[facility] Progress Note Progress Note DATE: 04/04/16 HISTORY: Patient was seen today to evaluate treatment progress on the inpatient unit. Patient was observed to be walking in head, socializing with peers in [facility], and has been attending groups. Patient denied all suicidal and homicidal ideation, indicated she felt more hopeful and "clear," denied audiovisual hallucinations, and denied urge to engage in self-injurious behavior. Patient denies paranoia or delusions, expresses she continues to feel that she is eating and her friend Clayton is Yvon, today indicates this is a "metaphor for our relationship." Patient continues to express confucianist preoccupation and indicates today she feels that God wants her to discharge to home with Steph and joint [employer], informing appeals writer today that Steph and Clayton do not live together. Patient indicates addition of Zyprexa at night is helpful stating, "I think my thinking is better." Patient denied medication side effects and none were observed, she denied experiencing blurred vision. Patient denied challenges with sleep and appetite, states energy level remains normal. Patient denies symptoms of physical pain. VITAL SIGNS: See below. NEW TEST RESULTS: EKG from 03/22/16 - SINUS RHYTHM, Within normal limits. Repolarization has normalized in comparison to 02/28/2016. Depakote level on 03/20/16 was 94.8 Lipid profile ordered 03/31/16 in preparation for Zyprexa initiation. Results WNL except glucose 107. CURRENT MEDICATIONS: See below. MENTAL STATUS EXAMINATION: Appearance -20 year old woman, appears stated age, fair grooming/hygiene, dressed in own clothing, exhibits prolonged gaze, no tremor noted or reported, denies experiencing blurred vision. Behavior - No intermittent psychomotor agitation noted, remains calm, generally engageable Attitude -Less anxious today, cooperative with interview Speech - tangential, normal volume Thought content -denies suicidal/homicidal ideation, denies audiovisual hallucinations, denies urge to engage in self-injurious behavior, appears paranoid, denies compulsions, may be responding to internal stimuli; denies audiovisual hallucinations, appears internally preoccupied, remains religiously preoccupied. Thought process -logical at times but generally illogical, perseverative, paranoid Mood - "I'm feeling better today." Displays reduced mood lability, intermittent tearfulness today Affect -blunted, less brightening, some inappropriate smiling Cognition - grossly intact Orientation - person and place, unable to assess orientation to time Insight and Judgement: Remain poor ASSESSMENT: Patient remains visible, is walking in hallways, attending groups, socializes in lounge. Patient presented with reduced symptoms of paranoia, delusional thinking, and psychosis during interaction today. However, in reviewing chart, appeals writer notes that earlier in the day patient presented with notable symptoms. Will continue Abilify and Depakote to previous dose of 500 mg twice a day. Will continue trial of hs dose of Zyprexa 5 mg in effort to further reduce patient's symptoms of psychosis. If patient responds continues to show some response to Zyprexa, will evaluate cross titration from Abilify to Zyprexa. Patient verbalized understanding of the plan and indicated she is in agreement. Patient remains aware that the discharge plan is currently transfer to [facility]. Patient denies all suicidal and homicidal thinking. Patient is able to effectively engage in the safety planning process and verbalizes awareness of how to access staff support on the unit if needed. Will into continue to monitor patient's response to medications and for medication side effects. DIAGNOSES: Schizophreniform disorder MANAGEMENT PLAN: Continue Depakote 500 mg by mouth twice a day, continue Abilify 10 mg po q am and 20 mg po q hs, continue Zyprexa 5 mg by mouth daily at bedtime. Continue trazodone 100 mg at bedtime PRN and Klonopin 0.5 mg po BID has been changed to PRN PA has been asked to evaluate patient's tachycardia Maintain safety precautions Patient to continue to attend groups and participate in unit programming to develop coping strategies Engage patient in discharge planning process and arrange meeting with family, if patient will allow, to evaluate safe discharge plan options, including transfer to [facility] Patient to follow up with PCM upon discharge Vital Signs/I&O Vital Signs Date Time Temp Pulse Resp B/P Pulse Ox O2 Delivery O2 Flow Rate FiO2 04/04/16 18:00 99.0 86 16 126/74 04/01/16 18:00 Room Air Current Medications Current Medications Acetaminophen (Tylenol) 650 mg Q6HP PRN PO HEADACHE or DISCOMFORT Last administered on 04/02/16 09:55; Start 03/09/16 at 16:30; Stop 04/08/16 at 16:29 Al Hydrox/Mg Hydrox/Simethicone (Mylanta) 30 ml Q4HP PRN PO HEARTBURN/ INDIGESTION; Start 03/09/16 at 16:30; Stop 04/08/16 at 16:29 Aripiprazole (AbiLIFY) 5 mg NOW ONCE PO Last administered on 03/29/16 14:30; Start 03/29/16 at 14:15; Stop 03/29/16 at 14:16; Status DC Aripiprazole (AbiLIFY) 5 mg QHS PO Last administered on 03/12/16at 21:48; Start 03/10/16 at 21:00; Stop 03/13/16 at 10:09; Status DC Aripiprazole (AbiLIFY) 10 mg QAM PO Last administered on 04/04/16 08:29; Start 03/30/16 at 09:00; Stop 04/29/16 at 08:59 Aripiprazole (AbiLIFY) 10 mg QHS PO Last administered on 03/13/16at 21:46; Start 03/13/16 at 21:00; Stop 03/14/16 at 14:00; Status DC Aripiprazole (AbiLIFY) 15 mg QHS PO Last administered on 03/20/16at 20:20; Start 03/14/16 at 21:00; Stop 03/21/16 at 11:10; Status DC Aripiprazole (AbiLIFY) 20 mg QHS PO Last administered on 04/03/16 21:00; Start 03/21/16 at 21:00; Stop 04/20/16 at 20:59 Benztropine Mesylate (Cogentin) 0.5 mg BID PO Last administered on 03/14/16at 09:27; Start 03/13/16 at 21:00; Stop 03/14/16 at 13:54; Status DC Benztropine Mesylate (Cogentin) 1 mg Q6HP PRN PO EPSE; Start 03/18/16 at 10:45 ; Stop 04/17/16 at 10:44 Benztropine Mesylate (Cogentin) 2 mg BID PO Last administered on 03/13/16at 08: 59; Start 03/09/16 at 21:00; Stop 03/13/16 at 10:10; Status DC Citalopram Hydrobromide (CeleXA) 20 mg DAILY PO Last administered on at 08:05; Start 03/10/16 at 09:00; Stop 03/15/16 at 10:17; Status DC Clonazepam (KlonoPIN) 0.5 mg BID PO Last administered on 03/27/16 22:11; Start 03/10/16 at 09:00; Stop 03/28/16 at 11:22; Status DC Clonazepam (KlonoPIN) 0.5 mg BID PRN PO ANXIETY Last administered on 04/04/16 08:29; Start 03/28/16 at 11:30; Stop 04/10/16 at 11:29 Divalproex Sodium (Depakote) 250 mg BID PO Last administered on 03/31/16 08:39 ; Start 03/29/16 at 21:00; Stop 03/31/16 at 10:25; Status DC Divalproex Sodium (Depakote) 250 mg BID PO Last administered on 03/16/16at 08: 21; Start 03/15/16 at 09:00; Stop 03/16/16 at 12:06; Status DC Divalproex Sodium (Depakote) 250 mg NOW ONCE PO ; Start 03/31/16 at 10:30; Stop 03/31/16 at 10:31; Status DC Divalproex Sodium (Depakote) 250 mg QAM PO Last administered on 03/17/16at 09: 06; Start 03/17/16 at 09:00; Stop 03/17/16 at 14:35; Status DC Divalproex Sodium (Depakote) 500 mg BID PO Last administered on 04/04/16 08:29 ; Start 03/31/16 at 21:00; Stop 04/30/16 at 20:59 Divalproex Sodium (Depakote) 500 mg BID PO Last administered on 03/29/16 09:40 ; Start 03/17/16 at 21:00; Stop 03/29/16 at 13:51; Status DC Divalproex Sodium (Depakote) 500 mg ONCE ONCE PO Last administered on at 21:59; Start 03/19/16 at 21:45; Stop 03/19/16 at 21:46; Status DC Divalproex Sodium (Depakote) 500 mg QHS PO Last administered on 03/16/16at 20: 29; Start 03/16/16 at 21:00; Stop 03/17/16 at 14:35; Status DC Haloperidol (Haldol) 5 mg Q6HP PRN PO AGITATION Last administered on 04/02/16 21:28; Start 03/18/16 at 10:45; Stop 04/17/16 at 10:44 Home Med (Med Rec Complete!) ASDIRECTED XX ; Start 03/09/16 at 16:45; Stop at 16:45; Status DC Lorazepam (Ativan) 1 mg Q6HP PRN PO ANXIETY/agitation Last administered on at 12:02; Start 03/10/16 at 14:30; Stop 03/28/16 at 11:22; Status DC Magnesium Hydroxide (Milk Of Magnesia) 30 ml DAILYPRN PRN PO CONSTIPATION; Start 03/09/16 at 16:30; Stop 04/08/16 at 16:29 Non-Formulary Medication ( See Comment Field Below ) SEE COMMENTS SECTION 1T @10 XX ; Start 03/24/16 at 10:00; Stop 03/24/16 at 10:00; Status DC Non-Formulary Medication ( See Comment Field Below ) SEE LABEL COMMENTS DAILY XX ; Start 03/22/16 at 09:00; Stop 03/22/16 at 09:43; Status DC Non-Formulary Medication ( See Comment Field Below ) SEE LABEL COMMENTS SECTION 1T@10 XX Last administered on 03/24/16at 09:32; Start 03/24/16 at 10: 00; Stop 03/25/16 at 00:00; Status DC Olanzapine (ZyPREXA) 5 mg QHS PO Last administered on 04/03/16 21:00; Start 03/31/16 at 21:00; Stop 04/30/16 at 20:59 Risperidone (RisperDAL) 0.5 mg BID PO Last administered on 03/14/16at 09:26; Start 03/13/16 at 21:00; Stop 03/14/16 at 13:54; Status DC Risperidone (RisperDAL) 1 mg BID PO Last administered on 03/13/16at 08:59; Start 03/10/16 at 21:00; Stop 03/13/16 at 10:09; Status DC Risperidone (RisperDAL) 2 mg BID PO Last administered on 03/10/16at 08:15; Start 03/09/16 at 21:00; Stop 03/10/16 at 12:52; Status DC Trazodone HCl (Desyrel) 100 mg QHSP PRN PO INSOMNIA Last administered on t 22:25; Start 03/09/16 at 16:30; Stop 04/08/16 at 16:29 Tuberculin PPD (Aplisol, Ppd) 5 units 1T@10 ID Last administered on 03/22/16at 13:43; Start 03/22/16 at 10:00; Stop 03/22/16 at 23:59; Status DC Tuberculin PPD (Aplisol, Ppd) 5 units NOW ONCE ID ; Start 03/22/16 at 08:15; Stop 03/22/16 at 09:28; Status DC Allergies Coded Allergies: No Known Allergies (Unverified , 02/26/16) Tona Norman Apr 04, 2016 19:48
[2016-04-04] MEDS: OLANZapine 5 MG TAB PO SCH (20:10)
[2016-04-05 06:36] VITALS: BP 117/69
[2016-04-05] MEDS: clonazePAM 0.5 MG TAB PO PRN (09:00)
[2016-04-05] MEDS: DIVALPROEX 500 MG TAB PO SCH ×2 (09:00→21:13)
[2016-04-05] MEDS: ARIPiprazole 10 MG TAB PO SCH ×2 (09:00→21:13)
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
[2016-04-05 18:00] VITALS: BP 127/78
[2016-04-05] MEDS: OLANZapine 10 MG TAB PO SCH (21:13)
[2016-04-06 06:20] VITALS: BP 107/58
[2016-04-06] MEDS: DIVALPROEX 500 MG TAB PO SCH ×2 (11:37→21:18)
[2016-04-06 18:00] VITALS: BP 121/78
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
[2016-04-06] MEDS: OLANZapine 10 MG TAB PO SCH (21:18)
[2016-04-06] MEDS: ARIPiprazole 10 MG TAB PO SCH (21:18)
[2016-04-06] MEDS: traZODone 50 MG TAB PO PRN (22:01)
[2016-04-07 06:13] VITALS: BP 107/60
[2016-04-07] MEDS: DIVALPROEX 500 MG TAB PO SCH ×2 (08:36→21:24)
[2016-04-07 18:00] VITALS: BP 112/71
--- NOTE | 2016-04-07 19:41 | IPNPDOC ---
[facility] Progress Note Progress Note DATE OF SERVICE: 04/07/16 HISTORY: Patient was seen today to evaluate treatment progress on the inpatient unit. Patient was observed to be walking the hallway, at times reading her Bible between groups, was easily engaged. Patient has been attending groups and has been visible on unit. Patient denied suicidal and homicidal ideation, denied anxiety and depression, audiovisual hallucinations, and denied urge to engage in self-injurious behavior. Patient denies paranoia or delusions. Patient informed commercial insurance underwriter today, "I think I can feel my emotions more, I think the medicine helping." Patient remains fixated on April 18, reiterates today that she believes "something" is going to happen, adding "I don't want the to be like, what is going to happen?" Patient continues to express roman catholic preoccupation but remains more redirectable, becomes tearful 1 during today's interaction but is able to verbalize reason for tears. Patient indicates she feels reduction to Abilify and increase in Zyprexa is "helping me feel better," and is agreeable to continuing cross titration tomorrow if assessed to be tolerating medication by weekend rounding psychiatrist. Patient denies medication side effects, no tremor was noted today, and patient denied blurred vision. Patient denied challenges with sleep and appetite, states energy level remains normal. Patient denies symptoms of physical pain. VITAL SIGNS: See below. NEW TEST RESULTS: Valproic acid level completed 04/05/16 101.3. Patient is asymptomatic for toxicity. Repeat test ordered for 04/07/16 and results not available as of 19:30. EKG from 03/22/16 - SINUS RHYTHM, Within normal limits. Repolarization has normalized in comparison to 02/28/2016. EKG repeated 03/31/16 SINUS RHYTHM NO CHANGE 03/22/16 DEpakote level on 03/19/16 was 108.5 Depakote level on 03/20/16 was 94.8 Lipid profile ordered 03/31/16 in preparation for Zyprexa initiation. Results WNL except glucose 107, patient's weight is stable. CURRENT MEDICATIONS: See below. MENTAL STATUS EXAMINATION: Appearance -20 year old woman, appears stated age, adequate grooming/hygiene, dressed in own clothing, exhibits prolonged gaze, exhibits no tremor, denies experiencing blurred vision. Behavior - calm, cooperative, more engageable Attitude -Less anxious today, cooperative with interview Speech - less tangential, normal volume Thought content -denies suicidal/homicidal ideation, denies audiovisual hallucinations, denies urge to engage in self-injurious behavior, appears paranoid, denies compulsions, may be responding to internal stimuli; denies audiovisual hallucinations, appears less internally preoccupied, remains religiously preoccupied. Thought process -logical at times but at other times is illogical, perseverative , paranoid Mood - "I'm okay, getting better." Patient displays reduced mood lability, tearfulness X 1 today Affect -blunted, brightens at times, some inappropriate smiling Cognition - grossly intact Orientation - person and place, unable to assess orientation to time Insight and Judgement: Remain poor ASSESSMENT: Patient remains visible, engageable, is attending groups. Patient again presented with reduced symptoms of paranoia, delusional thinking, and psychosis during interaction today, concentration and focus also seemed marginally improved. Patient remains religiously preoccupied and is concerned about unknown events she feels will occur on 04/18/16. Patient continues to indicate she believes Zyprexa is more effective than Abilify, will continue to monitor patient's response to medication change and will continue cross titration as tolerated by patient. As stated in previous note, patient's Depakote level ordered 04/05/16 was 101.3, patient is asymptomatic and commercial insurance underwriter requested repeat lab, results not yet available in [email or web address]. Potential medication side effects have been reviewed with patient who verbalized understanding and indicated she is in agreement with the plan. Patient remains aware that the discharge plan remains in place for transfer to [facility]. Patient denies all suicidal and homicidal thinking and is able to effectively engage in the safety planning process and verbalizes awareness of how to access staff support on the unit if needed. Will continue to monitor patient's response to medications and for medication side effects. DIAGNOSES: Schizophreniform disorder MANAGEMENT PLAN: Continue Zyprexa 10 mg po q hs. Continue Depakote 500 mg by mouth twice a day, continue Abilify 10 mg po q hs and 5 mg po q am. Continue trazodone 100 mg at bedtime PRN and Klonopin 0.5 mg po BID has been changed to PRN Repeat Depakote level on 04/07/16 - results pending PA has been asked to evaluate patient's history of tachycardia Maintain safety precautions and ensure patient safety on unit Patient to continue to attend groups and participate in unit programming to develop coping strategies Engage patient in discharge planning process and arrange meeting with family, if patient will allow, to evaluate safe discharge plan options, including transfer to [facility] Patient to follow up with PCM upon discharge Vital Signs/I&O Vital Signs Date Time Temp Pulse Resp B/P Pulse Ox O2 Delivery O2 Flow Rate FiO2 04/07/16 18:00 97.2 80 16 112/71 04/01/16 18:00 Room Air Current Medications Current Medications Acetaminophen (Tylenol) 650 mg Q6HP PRN PO HEADACHE or DISCOMFORT Last administered on 04/02/16 09:55; Start 03/09/16 at 16:30; Stop 05/07/16 at 16:29 Al Hydrox/Mg Hydrox/Simethicone (Mylanta) 30 ml Q4HP PRN PO HEARTBURN/ INDIGESTION; Start 03/09/16 at 16:30; Stop 05/07/16 at 16:29 Aripiprazole (AbiLIFY) 5 mg NOW ONCE PO Last administered on 03/29/16 14:30; Start 03/29/16 at 14:15; Stop 03/29/16 at 14:16; Status DC Aripiprazole (AbiLIFY) 5 mg QAM PO Last administered on 04/07/16 08:36; Start 04/06/16 at 09:00; Stop 05/06/16 at 08:59 Aripiprazole (AbiLIFY) 5 mg QHS PO Last administered on 03/12/16at 21:48; Start 03/10/16 at 21:00; Stop 03/13/16 at 10:09; Status DC Aripiprazole (AbiLIFY) 10 mg QAM PO Last administered on 04/05/16 09:00; Start 03/30/16 at 09:00; Stop 04/05/16 at 11:03; Status DC Aripiprazole (AbiLIFY) 10 mg QHS PO Last administered on 04/06/16 21:18; Start 04/05/16 at 21:00; Stop 05/05/16 at 20:59 Aripiprazole (AbiLIFY) 10 mg QHS PO Last administered on 03/13/16at 21:46; Start 03/13/16 at 21:00; Stop 03/14/16 at 14:00; Status DC Aripiprazole (AbiLIFY) 15 mg QHS PO Last administered on 03/20/16at 20:20; Start 03/14/16 at 21:00; Stop 03/21/16 at 11:10; Status DC Aripiprazole (AbiLIFY) 20 mg QHS PO Last administered on 04/04/16 20:10; Start 03/21/16 at 21:00; Stop 04/05/16 at 11:03; Status DC Benztropine Mesylate (Cogentin) 0.5 mg BID PO Last administered on 03/14/16at 09:27; Start 03/13/16 at 21:00; Stop 03/14/16 at 13:54; Status DC Benztropine Mesylate (Cogentin) 1 mg Q6HP PRN PO EPSE; Start 03/18/16 at 10:45 ; Stop 04/17/16 at 10:44 Benztropine Mesylate (Cogentin) 2 mg BID PO Last administered on 03/13/16at 08: 59; Start 03/09/16 at 21:00; Stop 03/13/16 at 10:10; Status DC Citalopram Hydrobromide (CeleXA) 20 mg DAILY PO Last administered on at 08:05; Start 03/10/16 at 09:00; Stop 03/15/16 at 10:17; Status DC Clonazepam (KlonoPIN) 0.5 mg BID PO Last administered on 03/27/16 22:11; Start 03/10/16 at 09:00; Stop 03/28/16 at 11:22; Status DC Clonazepam (KlonoPIN) 0.5 mg BID PRN PO ANXIETY Last administered on 04/05/16 09:00; Start 03/28/16 at 11:30; Stop 04/10/16 at 11:29 Divalproex Sodium (Depakote) 250 mg BID PO Last administered on 03/31/16 08:39 ; Start 03/29/16 at 21:00; Stop 03/31/16 at 10:25; Status DC Divalproex Sodium (Depakote) 250 mg BID PO Last administered on 03/16/16at 08: 21; Start 03/15/16 at 09:00; Stop 03/16/16 at 12:06; Status DC Divalproex Sodium (Depakote) 250 mg NOW ONCE PO ; Start 03/31/16 at 10:30; Stop 03/31/16 at 10:31; Status DC Divalproex Sodium (Depakote) 250 mg QAM PO Last administered on 03/17/16at 09: 06; Start 03/17/16 at 09:00; Stop 03/17/16 at 14:35; Status DC Divalproex Sodium (Depakote) 500 mg BID PO Last administered on 04/07/16 08:36 ; Start 03/31/16 at 21:00; Stop 04/30/16 at 20:59 Divalproex Sodium (Depakote) 500 mg BID PO Last administered on 03/29/16 09:40 ; Start 03/17/16 at 21:00; Stop 03/29/16 at 13:51; Status DC Divalproex Sodium (Depakote) 500 mg ONCE ONCE PO Last administered on at 21:59; Start 03/19/16 at 21:45; Stop 03/19/16 at 21:46; Status DC Divalproex Sodium (Depakote) 500 mg QHS PO Last administered on 03/16/16at 20: 29; Start 03/16/16 at 21:00; Stop 03/17/16 at 14:35; Status DC Haloperidol (Haldol) 5 mg Q6HP PRN PO AGITATION Last administered on 04/02/16 21:28; Start 03/18/16 at 10:45; Stop 04/17/16 at 10:44 Home Med (Med Rec Complete!) ASDIRECTED XX ; Start 03/09/16 at 16:45; Stop at 16:45; Status DC Lorazepam (Ativan) 1 mg Q6HP PRN PO ANXIETY/agitation Last administered on at 12:02; Start 03/10/16 at 14:30; Stop 03/28/16 at 11:22; Status DC Magnesium Hydroxide (Milk Of Magnesia) 30 ml DAILYPRN PRN PO CONSTIPATION; Start 03/09/16 at 16:30; Stop 05/07/16 at 16:29 Non-Formulary Medication ( See Comment Field Below ) SEE COMMENTS SECTION 1T @10 XX ; Start 03/24/16 at 10:00; Stop 03/24/16 at 10:00; Status DC Non-Formulary Medication ( See Comment Field Below ) SEE LABEL COMMENTS DAILY XX ; Start 03/22/16 at 09:00; Stop 03/22/16 at 09:43; Status DC Non-Formulary Medication ( See Comment Field Below ) SEE LABEL COMMENTS SECTION 1T@10 XX Last administered on 03/24/16at 09:32; Start 03/24/16 at 10: 00; Stop 03/25/16 at 00:00; Status DC Olanzapine (ZyPREXA) 5 mg QHS PO Last administered on 04/04/16 20:10; Start at 21:00; Stop 04/05/16 at 11:05; Status DC Olanzapine (ZyPREXA) 10 mg QHS PO Last administered on 04/06/16 21:18; Start 04/05/16 at 21:00; Stop 05/05/16 at 20:59 Risperidone (RisperDAL) 0.5 mg BID PO Last administered on 03/14/16at 09:26; Start 03/13/16 at 21:00; Stop 03/14/16 at 13:54; Status DC Risperidone (RisperDAL) 1 mg BID PO Last administered on 03/13/16at 08:59; Start 03/10/16 at 21:00; Stop 03/13/16 at 10:09; Status DC Risperidone (RisperDAL) 2 mg BID PO Last administered on 03/10/16at 08:15; Start 03/09/16 at 21:00; Stop 03/10/16 at 12:52; Status DC Trazodone HCl (Desyrel) 100 mg QHSP PRN PO INSOMNIA; Start 04/07/16 at 09:15; Stop 05/08/16 at 09:00 Trazodone HCl (Desyrel) 100 mg QHSP PRN PO INSOMNIA Last administered on 22:01; Start 03/09/16 at 16:30; Stop 04/07/16 at 09:04; Status DC Tuberculin PPD (Aplisol, Ppd) 5 units 1T@10 ID Last administered on 03/22/16at 13:43; Start 03/22/16 at 10:00; Stop 03/22/16 at 23:59; Status DC Tuberculin PPD (Aplisol, Ppd) 5 units NOW ONCE ID ; Start 03/22/16 at 08:15; Stop 03/22/16 at 09:28; Status DC Allergies Coded Allergies: No Known Allergies (Unverified , 02/26/16) Tona Nomran Apr 07, 2016 19:41
[2016-04-07] MEDS: ARIPiprazole 10 MG TAB PO SCH (21:24)
[2016-04-07] MEDS: OLANZapine 10 MG TAB PO SCH (21:24)
[2016-04-07] MEDS: traZODone 50 MG TAB PO PRN (21:38)
[2016-04-08 06:06] VITALS: BP 108/52
[2016-04-08] MEDS: DIVALPROEX 500 MG TAB PO SCH ×2 (08:52→21:43)
[2016-04-08] MEDS: clonazePAM 0.5 MG TAB PO PRN (08:56)
[2016-04-08 18:00] VITALS: BP 111/61
[2016-04-08] MEDS: ARIPiprazole 10 MG TAB PO SCH (21:43)
[2016-04-08] MEDS: OLANZapine 10 MG TAB PO SCH (21:43)
[2016-04-09 06:17] VITALS: BP 103/57
[2016-04-09] MEDS: DIVALPROEX 500 MG TAB PO SCH ×2 (08:28→21:52)
--- NOTE | 2016-04-09 10:31 | IPN ---
DATE: 04/08/2016 The patient today states, "I'm feeling better." She says, "I'm still having some occasional negative thoughts," but she says she is able to get them out of her mind. She is denying suicidal ideations. She feels that the Zyprexa is working better for her. MENTAL STATUS EXAMINATION: This patient is alert and oriented times three. Eye contact is fair. She is guarded. She exhibits no formal thought disorder. She describes her mood as, "better." Affect is constricted but appropriate to her mood. She was not tearful. I did not elicit any psychotic symptoms. She denies suicidal or homicidal ideations. Concentration fair. Memory intact. Insight and judgment is poor. DIAGNOSIS: Schizophreniform disorder. TREATMENT PLAN: At this point, the plan is to further decrease the Abilify from 15 mg to 10 mg once a day. The Zyprexa was just increased a few days ago to 10 mg and so I will continue it at the current dose. The plan is that the Zyprexa and Abilify will continue to be cross-titrated.
[2016-04-09 18:00] VITALS: BP 126/84
[2016-04-09] MEDS: ARIPiprazole 10 MG TAB PO SCH (21:52)
[2016-04-09] MEDS: OLANZapine 10 MG TAB PO SCH (21:52)
[2016-04-10 06:00] VITALS: BP 116/58
[2016-04-10] MEDS: DIVALPROEX 500 MG TAB PO SCH ×2 (09:02→20:31)
[2016-04-10] MEDS: HALOPERIDOL 5 MG TAB PO PRN (09:44)
--- NOTE | 2016-04-10 12:30 | IPN ---
DATE OF SERVICE: 04/09/2016 The patient today states, when I asked her how she was doing, "I'm all over the place." She then told me that she was better, however, and what she meant was that she was thinking about what she was going to be doing next in her life. She was denying any suicidal thoughts or psychotic thoughts from her either. MENTAL STATUS EXAMINATION: She is alert and oriented times three. Eye contact is fairly good. She did appear guarded. There is no formal thought disorder. She said she was better. She was not tearful. Affect was more appropriate. I did not elicit psychotic symptoms. She denied suicidal or homicidal ideation. Concentration is fair. Insight and judgment is poor. DIAGNOSIS: Schizophreniform disorder. TREATMENT PLAN: The patient still appears to have some confusion in her thinking and I suggested that we further try to increase the Zyprexa since we did cut the Abilify yesterday, but she was not receptive to that stating, "I want to be able to leave soon." I advised her then to speak to her provider about that tomorrow.
[2016-04-10 18:00] VITALS: BP 128/58
--- NOTE | 2016-04-10 18:32 | IPNPDOC ---
[facility] Progress Note Progress Note DATE OF SERVICE: 04/10/16 HISTORY: Patient was seen today to evaluate treatment progress on the inpatient unit. Patient was observed to be walking the hallway, easily engaged, and has been attending groups. Patient denied suicidal and homicidal ideation, denied anxiety and depression, audiovisual hallucinations, and denied urge to engage in self-injurious behavior. Patient denies paranoia or delusions. Patient indicated today she is feeling "better, my thoughts are clear," noted she had signed an BECKY for care management coordinator to speak with parents. Patient informed rewriter she is now contemplating discharge to home with parents, stated she is not interested in transfer to [facility]. Patient became tearful during interaction, remains religiously preoccupied, also remains fixated on unknown events patient believes will occur on 04/18/16. Patient is more redirectable and showing signs of improvement concentration and focus, and reduced mood lability. Patient indicates she feels further reduction to Abilify and increase in Zyprexa is helping her to feel more in control of her emotions and thoughts, is in agreement with continuing cross titration process. Patient denies medication side effects. No tremor was noted today, patient denied blurred vision. Patient denied challenges with sleep and appetite, states energy level remains normal. Patient denies symptoms of physical pain. VITAL SIGNS: See below. NEW TEST RESULTS: Valproic acid level completed 04/05/16 101.3. Patient is asymptomatic for toxicity. Repeat test ordered for 04/11/16, previously ordered test results not available. EKG from 03/22/16 - SINUS RHYTHM, Within normal limits. Repolarization has normalized in comparison to 02/28/2016. EKG repeated 03/31/16 SINUS RHYTHM NO CHANGE 03/22/16 Depakote level on 03/19/16 was 108.5 Depakote level on 03/20/16 was 94.8 Lipid profile ordered 03/31/16 in preparation for Zyprexa initiation. Results WNL except glucose 107, patient's weight is stable. CURRENT MEDICATIONS: See below. MENTAL STATUS EXAMINATION: Appearance -20 year old woman, appears stated age, improved grooming/hygiene, dressed in own clothing, exhibits more spontaneous and less prolonged gaze, exhibits no tremor, denies experiencing blurred vision. Behavior - calm, cooperative, more engageable Attitude -Less anxious today, cooperative with interview Speech - less tangential, normal volume Thought content -denies suicidal/homicidal ideation, denies audiovisual hallucinations, denies urge to engage in self-injurious behavior, appears paranoid, denies compulsions, may be responding to internal stimuli; denies audiovisual hallucinations, appears less internally preoccupied, remains religiously preoccupied. Thought process -logical at times but at other times is illogical, perseverative , paranoid Mood - "I'm feeling better and I think it would be okay for me to be discharged. " Patient displays reduced mood lability, tearfulness X 1 today Affect -blunted, brightens at times, some inappropriate smiling Cognition - grossly intact Orientation - person and place, unable to assess orientation to time Insight and Judgement: Remain poor ASSESSMENT: Patient remains visible, engageable, is attending groups. Patient again presented with reduced symptoms of paranoia, delusional thinking, and psychosis during interaction today, concentration and focus also seemed marginally improved. Patient remains religiously preoccupied and is concerned about unknown events she feels will occur on 04/18/16. Patient indicated during today's interaction that she is now considering discharge to home, however, per land planner, patient refuses to visit with parents when they came to unit over weekend. Also per land planner, parents are now disinterested and patient's discharge to home. Patient continues to indicate she believes Zyprexa is more effective than Abilify, will continue to monitor patient's response to medication change and will continue cross titration as tolerated by patient. As stated in previous note, patient's Depakote level ordered 04/05/16 was 101.3, patient is asymptomatic and rewriter requested repeat lab, results not available in [place], repeat labs ordered for 04/11/16. Potential medication side effects have been reviewed with patient who verbalized understanding and indicated she is in agreement with the plan. Patient remains aware that the discharge plan remains in place for transfer to [facility]. Patient denies all suicidal and homicidal thinking and is able to effectively engage in the safety planning process and verbalizes awareness of how to access staff support on the unit if needed. Will continue to monitor patient's response to medications and for medication side effects. DIAGNOSES: Schizophreniform disorder MANAGEMENT PLAN: Continue Zyprexa 10 mg po q hs. Continue Depakote 500 mg by mouth twice a day, continue Abilify 10 mg po q hs, continue trazodone 100 mg at bedtime PRN and Klonopin 0.5 mg po BID has been changed to PRN Repeat Depakote level on 04/11/16 - results pending PA has evaluated patient's history of tachycardia - Repeat EKG ordered in preparation for facility transfer Maintain safety precautions and ensure patient safety on unit Patient to continue to attend groups and participate in unit programming to develop coping strategies Engage patient in discharge planning process and repair patient for probable transfer to [facility] on Patient to follow up with PCM upon discharge Vital Signs/I&O Vital Signs Date Time Temp Pulse Resp B/P Pulse Ox O2 Delivery O2 Flow Rate FiO2 04/10/16 18:00 97.7 112 16 128/58 Current Medications Current Medications Acetaminophen (Tylenol) 650 mg Q6HP PRN PO HEADACHE or DISCOMFORT Last administered on 04/02/16 09:55; Start 03/09/16 at 16:30; Stop 05/07/16 at 16:29 Al Hydrox/Mg Hydrox/Simethicone (Mylanta) 30 ml Q4HP PRN PO HEARTBURN/ INDIGESTION; Start 03/09/16 at 16:30; Stop 05/07/16 at 16:29 Aripiprazole (AbiLIFY) 5 mg NOW ONCE PO Last administered on 03/29/16 14:30; Start 03/29/16 at 14:15; Stop 03/29/16 at 14:16; Status DC Aripiprazole (AbiLIFY) 5 mg QAM PO Last administered on 04/08/16 08:52; Start 04/06/16 at 09:00; Stop 04/08/16 at 17:50; Status DC Aripiprazole (AbiLIFY) 5 mg QHS PO Last administered on 03/12/16at 21:48; Start 03/10/16 at 21:00; Stop 03/13/16 at 10:09; Status DC Aripiprazole (AbiLIFY) 10 mg QAM PO Last administered on 04/05/16 09:00; Start 03/30/16 at 09:00; Stop 04/05/16 at 11:03; Status DC Aripiprazole (AbiLIFY) 10 mg QHS PO Last administered on 04/09/16 21:52; Start 04/05/16 at 21:00; Stop 05/05/16 at 20:59 Aripiprazole (AbiLIFY) 10 mg QHS PO Last administered on 03/13/16at 21:46; Start 03/13/16 at 21:00; Stop 03/14/16 at 14:00; Status DC Aripiprazole (AbiLIFY) 15 mg QHS PO Last administered on 03/20/16at 20:20; Start 03/14/16 at 21:00; Stop 03/21/16 at 11:10; Status DC Aripiprazole (AbiLIFY) 20 mg QHS PO Last administered on 04/04/16 20:10; Start 03/21/16 at 21:00; Stop 04/05/16 at 11:03; Status DC Benztropine Mesylate (Cogentin) 0.5 mg BID PO Last administered on 03/14/16at 09:27; Start 03/13/16 at 21:00; Stop 03/14/16 at 13:54; Status DC Benztropine Mesylate (Cogentin) 1 mg Q6HP PRN PO EPSE Last administered on 04/10 09:44; Start 03/18/16 at 10:45; Stop 04/17/16 at 10:44 Benztropine Mesylate (Cogentin) 2 mg BID PO Last administered on 03/13/16at 08: 59; Start 03/09/16 at 21:00; Stop 03/13/16 at 10:10; Status DC Citalopram Hydrobromide (CeleXA) 20 mg DAILY PO Last administered on at 08:05; Start 03/10/16 at 09:00; Stop 03/15/16 at 10:17; Status DC Clonazepam (KlonoPIN) 0.5 mg BID PO Last administered on 03/27/16 22:11; Start 03/10/16 at 09:00; Stop 03/28/16 at 11:22; Status DC Clonazepam (KlonoPIN) 0.5 mg BID PRN PO ANXIETY Last administered on 04/08/16 08:56; Start 03/28/16 at 11:30; Stop 04/16/16 at 11:29 Divalproex Sodium (Depakote) 250 mg BID PO Last administered on 03/31/16 08:39 ; Start 03/29/16 at 21:00; Stop 03/31/16 at 10:25; Status DC Divalproex Sodium (Depakote) 250 mg BID PO Last administered on 03/16/16at 08: 21; Start 03/15/16 at 09:00; Stop 03/16/16 at 12:06; Status DC Divalproex Sodium (Depakote) 250 mg NOW ONCE PO ; Start 03/31/16 at 10:30; Stop 03/31/16 at 10:31; Status DC Divalproex Sodium (Depakote) 250 mg QAM PO Last administered on 03/17/16at 09: 06; Start 03/17/16 at 09:00; Stop 03/17/16 at 14:35; Status DC Divalproex Sodium (Depakote) 500 mg BID PO Last administered on 04/10/16 09:02 ; Start 03/31/16 at 21:00; Stop 04/30/16 at 20:59 Divalproex Sodium (Depakote) 500 mg BID PO Last administered on 03/29/16 09:40 ; Start 03/17/16 at 21:00; Stop 03/29/16 at 13:51; Status DC Divalproex Sodium (Depakote) 500 mg ONCE ONCE PO Last administered on at 21:59; Start 03/19/16 at 21:45; Stop 03/19/16 at 21:46; Status DC Divalproex Sodium (Depakote) 500 mg QHS PO Last administered on 03/16/16at 20: 29; Start 03/16/16 at 21:00; Stop 03/17/16 at 14:35; Status DC Haloperidol (Haldol) 5 mg Q6HP PRN PO AGITATION Last administered on 04/10/16 09:44; Start 03/18/16 at 10:45; Stop 04/17/16 at 10:44 Home Med (Med Rec Complete!) ASDIRECTED XX ; Start 03/09/16 at 16:45; Stop at 16:45; Status DC Lorazepam (Ativan) 1 mg Q6HP PRN PO ANXIETY/agitation Last administered on at 12:02; Start 03/10/16 at 14:30; Stop 03/28/16 at 11:22; Status DC Magnesium Hydroxide (Milk Of Magnesia) 30 ml DAILYPRN PRN PO CONSTIPATION; Start 03/09/16 at 16:30; Stop 05/07/16 at 16:29 Non-Formulary Medication ( See Comment Field Below ) SEE COMMENTS SECTION 1T @10 XX ; Start 03/24/16 at 10:00; Stop 03/24/16 at 10:00; Status DC Non-Formulary Medication ( See Comment Field Below ) SEE LABEL COMMENTS DAILY XX ; Start 03/22/16 at 09:00; Stop 03/22/16 at 09:43; Status DC Non-Formulary Medication ( See Comment Field Below ) SEE LABEL COMMENTS SECTION 1T@10 XX Last administered on 03/24/16at 09:32; Start 03/24/16 at 10: 00; Stop 03/25/16 at 00:00; Status DC Olanzapine (ZyPREXA) 5 mg QHS PO Last administered on 04/04/16 20:10; Start at 21:00; Stop 04/05/16 at 11:05; Status DC Olanzapine (ZyPREXA) 10 mg QHS PO Last administered on 04/09/16 21:52; Start 04/05/16 at 21:00; Stop 05/05/16 at 20:59 Risperidone (RisperDAL) 0.5 mg BID PO Last administered on 03/14/16at 09:26; Start 03/13/16 at 21:00; Stop 03/14/16 at 13:54; Status DC Risperidone (RisperDAL) 1 mg BID PO Last administered on 03/13/16at 08:59; Start 03/10/16 at 21:00; Stop 03/13/16 at 10:09; Status DC Risperidone (RisperDAL) 2 mg BID PO Last administered on 03/10/16at 08:15; Start 03/09/16 at 21:00; Stop 03/10/16 at 12:52; Status DC Trazodone HCl (Desyrel) 100 mg QHSP PRN PO INSOMNIA Last administered on 21:38; Start 04/07/16 at 09:15; Stop 05/08/16 at 09:00 Trazodone HCl (Desyrel) 100 mg QHSP PRN PO INSOMNIA Last administered on t 22:01; Start 03/09/16 at 16:30; Stop 04/07/16 at 09:04; Status DC Tuberculin PPD (Aplisol, Ppd) 5 units 1T@10 ID Last administered on 03/22/16at 13:43; Start 03/22/16 at 10:00; Stop 03/22/16 at 23:59; Status DC Tuberculin PPD (Aplisol, Ppd) 5 units NOW ONCE ID ; Start 03/22/16 at 08:15; Stop 03/22/16 at 09:28; Status DC Allergies Coded Allergies: No Known Allergies (Unverified , 02/26/16) Tona Norman Apr 10, 2016 18:32
[2016-04-10] MEDS: ARIPiprazole 10 MG TAB PO SCH (20:30)
[2016-04-10] MEDS: OLANZapine 10 MG TAB PO SCH (20:30)
[2016-04-10] MEDS: traZODone 50 MG TAB PO PRN (22:16)
[2016-04-11 06:31] VITALS: BP 123/62
[2016-04-11] MEDS: DIVALPROEX 500 MG TAB PO SCH ×2 (07:58→21:28)
--- NOTE | 2016-04-11 12:48 | IPNPDOC ---
[facility] Progress Note Progress Note DATE OF SERVICE: 04/11/16 HISTORY: Patient was seen today to evaluate treatment progress on the inpatient unit. Patient was observed to be walking the hallway, easily engaged, and has been attending groups. Patient denied suicidal and homicidal ideation, denied anxiety and depression, audiovisual hallucinations, and denied urge to engage in self-injurious behavior. Patient denies paranoia or delusions. Patient states she continues to feel better noting, "my thoughts are better clear and I don't want to go to [facility], I want to go home." noted she had signed an BECKY for mortgage coordinator to speak with parents. Patient informed food writer she is now contemplating discharge to home with parents, stated she is not interested in transfer to [facility]. Patient became tearful X 1 during interaction today, remains religiously preoccupied but less today than has been, makes no mention of previous concerns related to date of 04/18/16. Patient is more redirectable and continues to show signs of improvement in concentration and focus, and reduced mood lability. Patient states she feels stable and is prepared for further reduction of Abilify in effort to complete cross titration to Zyprexa, states she continues to feel more in control of her emotions and thoughts. Patient denies medication side effects, slight intermittent tremor noted today to hands , patient denies blurred vision. Patient indicates sleep remains good, denies nightmares symptoms, states appetite and energy levels remain within normal limits. Patient denies symptoms of physical pain. VITAL SIGNS: See below. Currently no tachycardia NEW TEST RESULTS: Valproic acid level completed 04/05/16 101.3. Patient is asymptomatic for toxicity. Repeat test ordered for 04/11/16, previously ordered test results not available. EKG from 03/22/16 - SINUS RHYTHM, Within normal limits. Repolarization has normalized in comparison to 02/28/2016. EKG repeated 03/31/16 SINUS RHYTHM NO CHANGE 03/22/16 Depakote level on 04/11/16 was 119.2. Depakote level on 03/19/16 was 108.5 Depakote level on 03/20/16 was 94.8 Lipid profile ordered 03/31/16 in preparation for Zyprexa initiation. Results WNL except glucose 107 (down from 120 on 03/09/16). CURRENT MEDICATIONS: See below. MENTAL STATUS EXAMINATION: Appearance -20 year old woman, appears stated age, improved grooming/hygiene, dressed in own clothing, exhibits more spontaneous and less prolonged gaze, exhibits mild intermittent tremor to hands, denies experiencing blurred vision. Behavior - calm, cooperative, more engageable Attitude -Less anxious today, cooperative with interview Speech - less tangential, normal volume Thought content -denies suicidal/homicidal ideation, denies audiovisual hallucinations, denies urge to engage in self-injurious behavior, appears paranoid, denies compulsions, does not appear to be responding to internal stimuli; denies audiovisual hallucinations, remains religiously preoccupied. Thought process -logical at times but at other times is illogical, perseverative Mood - "I'm feeling better and I want to go home." Patient displays reduced mood lability, tearfulness X 1 today Affect -blunted, brightens at times, no inappropriate smiling noted today Cognition - grossly intact Orientation - person and place, unable to assess orientation to time Insight and Judgement: Remain poor ASSESSMENT: Patient remains visible, engageable, is attending groups. Patient again presented with reduced symptoms of paranoia, delusional thinking, and psychosis during interaction today, concentration and focus also seemed marginally improved. Patient remains religiously preoccupied, verbalizes no concern today related to 04/18/16. Patient indicated during today's interaction that she continues to consider discharge to home. brand planner has informed food writer that, due to patient refusing to see parents over weekend when they cam to visit, discharge to home is no longer an option. Patient continues to indicate she believes Zyprexa is more effective than Abilify, will continue to monitor patient's response to medication change and will continue cross titration as tolerated by patient. Potential medication side effects have been reviewed with patient who verbalized understanding and indicated she is in agreement with the plan. Will reduce patient's Abilify to 5 mg po and move to am dosing due to patient's apparent medication sensitivity and may be slow metabolizer. As stated in previous note, patient's Depakote level ordered was 101.3. Patient was asymptomatic and food writer requested repeat lab for date of entry with result of 119.2. Patient remains asymptomatic and has exhibited notable mood lability and past with Depakote 500 mg dose reduction, therefore, will reduce Depakote to 250 mg po q am and continue 500 mg po hs, will monitor for toxicity and will repeat labs in 3-4 days or will advise [facility] of need for updated labs if patient is transferred prior to lab repeat. Patient remains aware that the discharge plan remains in place for transfer to [facility]. Patient denies all suicidal and homicidal thinking and is able to effectively engage in the safety planning process and verbalizes awareness of how to access staff support on the unit if needed. Will continue to monitor patient's response to medications and for medication side effects. DIAGNOSES: Schizophreniform disorder MANAGEMENT PLAN: Continue Zyprexa 10 mg po q hs. Change Depakote to 250 mg po q am and 500 mg po q hs, Reduce and change Abilify to 5 mg po q am, continue trazodone 100 mg at bedtime PRN and Klonopin 0.5 mg po BID PRN for anxiety. Repeat Depakote level on 04/14 - 04/15/16 PA has evaluated patient's history of tachycardia - Repeat EKG ordered in preparation for facility transfer, currently asymptomatic Maintain safety precautions and ensure patient safety on unit Patient to continue to attend groups and participate in unit programming to develop coping strategies Engage patient in discharge planning process and repair patient for probable transfer to [facility] on Patient to follow up with PCM upon discharge Vital Signs/I&O Vital Signs Date Time Temp Pulse Resp B/P Pulse Ox O2 Delivery O2 Flow Rate FiO2 04/11/16 06:31 97.6 62 16 123/62 Laboratory Data 24[facility] Labs Laboratory Tests 2 04/11/16 07:33: Valproic Acid (Depakene) Level 119.2H Current Medications Current Medications Acetaminophen (Tylenol) 650 mg Q6HP PRN PO HEADACHE or DISCOMFORT Last administered on 04/02/16 09:55; Start 03/09/16 at 16:30; Stop 05/07/16 at 16:29 Al Hydrox/Mg Hydrox/Simethicone (Mylanta) 30 ml Q4HP PRN PO HEARTBURN/ INDIGESTION; Start 03/09/16 at 16:30; Stop 05/07/16 at 16:29 Aripiprazole (AbiLIFY) 5 mg NOW ONCE PO Last administered on 03/29/16 14:30; Start 03/29/16 at 14:15; Stop 03/29/16 at 14:16; Status DC Aripiprazole (AbiLIFY) 5 mg QAM PO Last administered on 04/08/16 08:52; Start 04/06/16 at 09:00; Stop 04/08/16 at 17:50; Status DC Aripiprazole (AbiLIFY) 5 mg QHS PO Last administered on 03/12/16at 21:48; Start 03/10/16 at 21:00; Stop 03/13/16 at 10:09; Status DC Aripiprazole (AbiLIFY) 10 mg QAM PO Last administered on 04/05/16 09:00; Start 03/30/16 at 09:00; Stop 04/05/16 at 11:03; Status DC Aripiprazole (AbiLIFY) 10 mg QHS PO Last administered on 04/10/16 20:30; Start 04/05/16 at 21:00; Stop 05/05/16 at 20:59 Aripiprazole (AbiLIFY) 10 mg QHS PO Last administered on 03/13/16at 21:46; Start 03/13/16 at 21:00; Stop 03/14/16 at 14:00; Status DC Aripiprazole (AbiLIFY) 15 mg QHS PO Last administered on 03/20/16at 20:20; Start 03/14/16 at 21:00; Stop 03/21/16 at 11:10; Status DC Aripiprazole (AbiLIFY) 20 mg QHS PO Last administered on 04/04/16 20:10; Start 03/21/16 at 21:00; Stop 04/05/16 at 11:03; Status DC Benztropine Mesylate (Cogentin) 0.5 mg BID PO Last administered on 03/14/16at 09:27; Start 03/13/16 at 21:00; Stop 03/14/16 at 13:54; Status DC Benztropine Mesylate (Cogentin) 1 mg Q6HP PRN PO EPSE Last administered on 04/10 09:44; Start 03/18/16 at 10:45; Stop 04/17/16 at 10:44 Benztropine Mesylate (Cogentin) 2 mg BID PO Last administered on 03/13/16at 08: 59; Start 03/09/16 at 21:00; Stop 03/13/16 at 10:10; Status DC Citalopram Hydrobromide (CeleXA) 20 mg DAILY PO Last administered on at 08:05; Start 03/10/16 at 09:00; Stop 03/15/16 at 10:17; Status DC Clonazepam (KlonoPIN) 0.5 mg BID PO Last administered on 03/27/16 22:11; Start 03/10/16 at 09:00; Stop 03/28/16 at 11:22; Status DC Clonazepam (KlonoPIN) 0.5 mg BID PRN PO ANXIETY Last administered on 04/08/16 08:56; Start 03/28/16 at 11:30; Stop 04/16/16 at 11:29 Divalproex Sodium (Depakote) 250 mg BID PO Last administered on 03/31/16 08:39 ; Start 03/29/16 at 21:00; Stop 03/31/16 at 10:25; Status DC Divalproex Sodium (Depakote) 250 mg BID PO Last administered on 03/16/16at 08: 21; Start 03/15/16 at 09:00; Stop 03/16/16 at 12:06; Status DC Divalproex Sodium (Depakote) 250 mg NOW ONCE PO ; Start 03/31/16 at 10:30; Stop 03/31/16 at 10:31; Status DC Divalproex Sodium (Depakote) 250 mg QAM PO Last administered on 03/17/16at 09: 06; Start 03/17/16 at 09:00; Stop 03/17/16 at 14:35; Status DC Divalproex Sodium (Depakote) 500 mg BID PO Last administered on 04/11/16 07:58 ; Start 03/31/16 at 21:00; Stop 04/30/16 at 20:59 Divalproex Sodium (Depakote) 500 mg BID PO Last administered on 03/29/16 09:40 ; Start 03/17/16 at 21:00; Stop 03/29/16 at 13:51; Status DC Divalproex Sodium (Depakote) 500 mg ONCE ONCE PO Last administered on at 21:59; Start 03/19/16 at 21:45; Stop 03/19/16 at 21:46; Status DC Divalproex Sodium (Depakote) 500 mg QHS PO Last administered on 03/16/16at 20: 29; Start 03/16/16 at 21:00; Stop 03/17/16 at 14:35; Status DC Haloperidol (Haldol) 5 mg Q6HP PRN PO AGITATION Last administered on 04/10/16 09:44; Start 03/18/16 at 10:45; Stop 04/17/16 at 10:44 Home Med (Med Rec Complete!) ASDIRECTED XX ; Start 03/09/16 at 16:45; Stop at 16:45; Status DC Lorazepam (Ativan) 1 mg Q6HP PRN PO ANXIETY/agitation Last administered on at 12:02; Start 03/10/16 at 14:30; Stop 03/28/16 at 11:22; Status DC Magnesium Hydroxide (Milk Of Magnesia) 30 ml DAILYPRN PRN PO CONSTIPATION; Start 03/09/16 at 16:30; Stop 05/07/16 at 16:29 Non-Formulary Medication ( See Comment Field Below ) SEE COMMENTS SECTION 1T @10 XX ; Start 03/24/16 at 10:00; Stop 03/24/16 at 10:00; Status DC Non-Formulary Medication ( See Comment Field Below ) SEE LABEL COMMENTS DAILY XX ; Start 03/22/16 at 09:00; Stop 03/22/16 at 09:43; Status DC Non-Formulary Medication ( See Comment Field Below ) SEE LABEL COMMENTS SECTION 1T@10 XX Last administered on 03/24/16at 09:32; Start 03/24/16 at 10: 00; Stop 03/25/16 at 00:00; Status DC Olanzapine (ZyPREXA) 5 mg QHS PO Last administered on 04/04/16 20:10; Start at 21:00; Stop 04/05/16 at 11:05; Status DC Olanzapine (ZyPREXA) 10 mg QHS PO Last administered on 04/10/16 20:30; Start 04/05/16 at 21:00; Stop 05/05/16 at 20:59 Risperidone (RisperDAL) 0.5 mg BID PO Last administered on 03/14/16at 09:26; Start 03/13/16 at 21:00; Stop 03/14/16 at 13:54; Status DC Risperidone (RisperDAL) 1 mg BID PO Last administered on 03/13/16at 08:59; Start 03/10/16 at 21:00; Stop 03/13/16 at 10:09; Status DC Risperidone (RisperDAL) 2 mg BID PO Last administered on 03/10/16at 08:15; Start 03/09/16 at 21:00; Stop 03/10/16 at 12:52; Status DC Trazodone HCl (Desyrel) 100 mg QHSP PRN PO INSOMNIA Last administered on 22:16; Start 04/07/16 at 09:15; Stop 05/08/16 at 09:00 Trazodone HCl (Desyrel) 100 mg QHSP PRN PO INSOMNIA Last administered on 22:01; Start 03/09/16 at 16:30; Stop 04/07/16 at 09:04; Status DC Tuberculin PPD (Aplisol, Ppd) 5 units 1T@10 ID Last administered on 03/22/16at 13:43; Start 03/22/16 at 10:00; Stop 03/22/16 at 23:59; Status DC Tuberculin PPD (Aplisol, Ppd) 5 units NOW ONCE ID ; Start 03/22/16 at 08:15; Stop 03/22/16 at 09:28; Status DC Allergies Coded Allergies: No Known Allergies (Unverified , 02/26/16) Tona Norman Apr 11, 2016 12:48
[2016-04-11] MEDS: ACETAMINOPHEN TAB 650MG DOSE (2X325MG) PO PRN (13:46)
[2016-04-11 18:00] VITALS: BP 145/67
[2016-04-11] MEDS: OLANZapine 10 MG TAB PO SCH (21:28)
[2016-04-12 06:37] VITALS: BP 106/55
[2016-04-12] MEDS: DIVALPROEX 250 MG TAB PO SCH (08:26)
--- NOTE | 2016-04-12 11:10 | IPNPDOC ---
[facility] Progress Note Progress Note DATE OF SERVICE: 04/12/16 HISTORY: Patient was seen today to evaluate treatment progress on the inpatient unit. Patient was observed to be reading and room between groups, remains easily engaged, and has been attending groups. Patient denied suicidal and homicidal ideation, denied anxiety and depression, audiovisual hallucinations, and denied urge to engage in self-injurious behavior. Patient denies paranoia or delusions, however displays brief episodes of baptist preoccupation in fixation on being "put away" for treatment. Patient reiterates today that she feels she is prepared to discharge to home, though is unable to define "home" to junior underwriter. Patient became tearful 3 during interaction today, indicates she feels "better," denies suicidal and homicidal ideation, denies symptoms of anxiety and depression but asks junior underwriter, "is that the answer you want me to give few so I can go home?" Patient denies symptoms of audiovisual hallucinations and denies urge to engage in self-injurious behavior. Patient remains generally redirectable and continues to show signs of improvement in concentration and focus. Patient denies noting difference in symptoms as a result of Abilify and Depakote dosing reductions but appeared to be experiencing increase in mood lability. Patient denies medication side effects, slight tremor noted today to hands with no change/worsening, patient denies blurred vision. Patient indicates sleep remains good, denies nightmares symptoms, states appetite and energy levels remain within normal limits. Patient denies symptoms of physical pain. Patient verbalizes awareness of impending transfer to [facility]. VITAL SIGNS: See below. Currently no tachycardia NEW TEST RESULTS: Valproic acid level completed 04/05/16 101.3. Patient is asymptomatic for toxicity. Repeat test ordered for 04/11/16, previously ordered test results not available. EKG from 03/22/16 - SINUS RHYTHM, Within normal limits. Repolarization has normalized in comparison to 02/28/2016. EKG repeated 03/31/16 SINUS RHYTHM NO CHANGE 03/22/16 Depakote level on 04/11/16 was 119.2. Depakote level on 03/19/16 was 108.5 Depakote level on 03/20/16 was 94.8 Lipid profile ordered 03/31/16 in preparation for Zyprexa initiation. Results WNL except glucose 107 (down from 120 on 03/09/16). CURRENT MEDICATIONS: See below. MENTAL STATUS EXAMINATION: Appearance -20 year old woman, appears stated age, improved grooming/hygiene, dressed in own clothing, exhibits more spontaneous and less prolonged gaze, exhibits mild intermittent tremor to hands, denies experiencing blurred vision. Behavior - calm, cooperative, more engageable Attitude -Remains less anxious today, cooperative with interview Speech - less tangential, normal volume Thought content -denies suicidal/homicidal ideation, denies audiovisual hallucinations, denies urge to engage in self-injurious behavior, appears paranoid, denies compulsions, does not appear to be responding to internal stimuli; denies audiovisual hallucinations, remains religiously preoccupied. Thought process -logical at times but at other times is illogical, perseverative Mood - "I'm fine and I want to go home." Patient displays increased mood lability today, tearfulness X 3 today Affect -blunted, brightens at times, no inappropriate smiling noted today Cognition - grossly intact Orientation - person and place, unable to assess orientation to time Insight: Limited, some improvement Judgement: Remains poor ASSESSMENT: Patient remains visible, engageable, is attending groups. Patient continues to present with reduced symptoms of paranoia, delusional thinking, and psychosis, however, symptoms remain present. Patient's concentration and focus also seemed marginally improved. Patient remains religiously preoccupied, verbalizes no concern today related to 04/18/16. Patient indicated during today' s interaction that she continues to consider discharge to home. regional planner has informed junior underwriter that, due to patient refusing to see parents over weekend when they came to visit, discharge to home is no longer an option. Patient continues to indicate she believes Zyprexa is more effective than Abilify, will continue to monitor patient's response to medication change and will continue cross titration as tolerated by patient. Potential medication side effects have been reviewed with patient who verbalized understanding and indicated she is in agreement with the plan. Will continue Abilify to 5 mg po, recently moved to am dosing due to patient's apparent medication sensitivity and may be slow metabolizer. As stated in previous note, patient's Depakote level ordered 04/05/16 was 101.3. Patient was symptomatic and junior underwriter requested repeat lab for date of entry with result of 119.2. Patient has mild tremor to hands which may be related to Depakote or medication cross titration process, remains asymptomatic and denies symptoms of Depakote toxicity. Patient remains asymptomatic and has exhibited notable mood lability and past with Depakote 500 mg dose reduction, therefore, will continue reduced Depakote dose of 250 mg po q am and continue 500 mg po hs, will monitor for toxicity and will repeat labs in 2-3 days or will advise [facility] of need for updated labs if patient is transferred prior to lab repeat. Patient remains aware that the discharge plan remains in place for transfer to [facility]. Patient denies all suicidal and homicidal thinking and is able to effectively engage in the safety planning process and verbalizes awareness of how to access staff support on the unit if needed. Will continue to monitor patient's response to medications and for medication side effects. DIAGNOSES: Schizophreniform disorder MANAGEMENT PLAN: Continue Zyprexa 10 mg po q hs. Continue Depakote 250 mg po q am and 500 mg po q hs, Continue Abilify 5 mg po q am, continue trazodone 100 mg at bedtime PRN and Klonopin 0.5 mg po BID PRN for anxiety. Repeat Depakote level on 04/14 - 04/15/16 Repeat EKG ordered - results not yet available in [facility] has evaluated patient's history of tachycardia - Repeat EKG ordered in preparation for facility transfer, patient is currently asymptomatic Maintain safety precautions and ensure patient safety on unit Patient to continue to attend groups and participate in unit programming to develop coping strategies Engage patient in discharge planning process and repair patient for probable transfer to [facility] on Patient to follow up with PCM upon discharge Vital Signs/I&O Vital Signs Date Time Temp Pulse Resp B/P Pulse Ox O2 Delivery O2 Flow Rate FiO2 04/12/16 06:37 97.2 65 16 106/55 Current Medications Current Medications Acetaminophen (Tylenol) 650 mg Q6HP PRN PO HEADACHE or DISCOMFORT Last administered on 04/11/16t 13:46; Start 03/09/16 at 16:30; Stop 05/07/16 at 16: 29 Al Hydrox/Mg Hydrox/Simethicone (Mylanta) 30 ml Q4HP PRN PO HEARTBURN/ INDIGESTION; Start 03/09/16 at 16:30; Stop 05/07/16 at 16:29 Aripiprazole (AbiLIFY) 5 mg NOW ONCE PO Last administered on 03/29/16 14:30; Start 03/29/16 at 14:15; Stop 03/29/16 at 14:16; Status DC Aripiprazole (AbiLIFY) 5 mg QAM PO Last administered on 04/08/16 08:52; Start 04/06/16 at 09:00; Stop 04/08/16 at 17:50; Status DC Aripiprazole (AbiLIFY) 5 mg QAM PO Last administered on 04/12/16 08:26; Start 04/12/16 at 09:00; Stop 05/12/16 at 08:59 Aripiprazole (AbiLIFY) 5 mg QHS PO Last administered on 03/12/16at 21:48; Start 03/10/16 at 21:00; Stop 03/13/16 at 10:09; Status DC Aripiprazole (AbiLIFY) 10 mg QAM PO Last administered on 04/05/16 09:00; Start 03/30/16 at 09:00; Stop 04/05/16 at 11:03; Status DC Aripiprazole (AbiLIFY) 10 mg QHS PO Last administered on 04/10/16 20:30; Start 04/05/16 at 21:00; Stop 04/11/16 at 15:27; Status DC Aripiprazole (AbiLIFY) 10 mg QHS PO Last administered on 03/13/16at 21:46; Start 03/13/16 at 21:00; Stop 03/14/16 at 14:00; Status DC Aripiprazole (AbiLIFY) 15 mg QHS PO Last administered on 03/20/16at 20:20; Start 03/14/16 at 21:00; Stop 03/21/16 at 11:10; Status DC Aripiprazole (AbiLIFY) 20 mg QHS PO Last administered on 04/04/16 20:10; Start 03/21/16 at 21:00; Stop 04/05/16 at 11:03; Status DC Benztropine Mesylate (Cogentin) 0.5 mg BID PO Last administered on 03/14/16at 09:27; Start 03/13/16 at 21:00; Stop 03/14/16 at 13:54; Status DC Benztropine Mesylate (Cogentin) 1 mg Q6HP PRN PO EPSE Last administered on 04/10 09:44; Start 03/18/16 at 10:45; Stop 04/17/16 at 10:44 Benztropine Mesylate (Cogentin) 2 mg BID PO Last administered on 03/13/16at 08: 59; Start 03/09/16 at 21:00; Stop 03/13/16 at 10:10; Status DC Citalopram Hydrobromide (CeleXA) 20 mg DAILY PO Last administered on at 08:05; Start 03/10/16 at 09:00; Stop 03/15/16 at 10:17; Status DC Clonazepam (KlonoPIN) 0.5 mg BID PO Last administered on 03/27/16 22:11; Start 03/10/16 at 09:00; Stop 03/28/16 at 11:22; Status DC Clonazepam (KlonoPIN) 0.5 mg BID PRN PO ANXIETY Last administered on 04/08/16 08:56; Start 03/28/16 at 11:30; Stop 04/16/16 at 11:29 Divalproex Sodium (Depakote) 250 mg BID PO Last administered on 03/31/16 08:39 ; Start 03/29/16 at 21:00; Stop 03/31/16 at 10:25; Status DC Divalproex Sodium (Depakote) 250 mg BID PO Last administered on 03/16/16at 08: 21; Start 03/15/16 at 09:00; Stop 03/16/16 at 12:06; Status DC Divalproex Sodium (Depakote) 250 mg NOW ONCE PO ; Start 03/31/16 at 10:30; Stop 03/31/16 at 10:31; Status DC Divalproex Sodium (Depakote) 250 mg QAM PO Last administered on 04/12/16 08:26 ; Start 04/12/16 at 09:00; Stop 05/12/16 at 08:59 Divalproex Sodium (Depakote) 250 mg QAM PO Last administered on 03/17/16at 09: 06; Start 03/17/16 at 09:00; Stop 03/17/16 at 14:35; Status DC Divalproex Sodium (Depakote) 500 mg BID PO Last administered on 04/11/16 07:58 ; Start 03/31/16 at 21:00; Stop 04/11/16 at 15:23; Status DC Divalproex Sodium (Depakote) 500 mg BID PO Last administered on 03/29/16 09:40 ; Start 03/17/16 at 21:00; Stop 03/29/16 at 13:51; Status DC Divalproex Sodium (Depakote) 500 mg ONCE ONCE PO Last administered on at 21:59; Start 03/19/16 at 21:45; Stop 03/19/16 at 21:46; Status DC Divalproex Sodium (Depakote) 500 mg QHS PO Last administered on 04/11/16 21:28 ; Start 04/11/16 at 21:00; Stop 05/11/16 at 20:59 Divalproex Sodium (Depakote) 500 mg QHS PO Last administered on 03/16/16at 20: 29; Start 03/16/16 at 21:00; Stop 03/17/16 at 14:35; Status DC Haloperidol (Haldol) 5 mg Q6HP PRN PO AGITATION Last administered on 04/10/16 09:44; Start 03/18/16 at 10:45; Stop 04/17/16 at 10:44 Home Med (Med Rec Complete!) ASDIRECTED XX ; Start 03/09/16 at 16:45; Stop at 16:45; Status DC Lorazepam (Ativan) 1 mg Q6HP PRN PO ANXIETY/agitation Last administered on at 12:02; Start 03/10/16 at 14:30; Stop 03/28/16 at 11:22; Status DC Magnesium Hydroxide (Milk Of Magnesia) 30 ml DAILYPRN PRN PO CONSTIPATION; Start 03/09/16 at 16:30; Stop 05/07/16 at 16:29 Non-Formulary Medication ( See Comment Field Below ) SEE COMMENTS SECTION 1T @10 XX ; Start 03/24/16 at 10:00; Stop 03/24/16 at 10:00; Status DC Non-Formulary Medication ( See Comment Field Below ) SEE LABEL COMMENTS DAILY XX ; Start 03/22/16 at 09:00; Stop 03/22/16 at 09:43; Status DC Non-Formulary Medication ( See Comment Field Below ) SEE LABEL COMMENTS SECTION 1T@10 XX Last administered on 03/24/16at 09:32; Start 03/24/16 at 10: 00; Stop 03/25/16 at 00:00; Status DC Olanzapine (ZyPREXA) 5 mg QHS PO Last administered on 04/04/16 20:10; Start at 21:00; Stop 04/05/16 at 11:05; Status DC Olanzapine (ZyPREXA) 10 mg QHS PO Last administered on 04/11/16 21:28; Start 04/05/16 at 21:00; Stop 05/05/16 at 20:59 Risperidone (RisperDAL) 0.5 mg BID PO Last administered on 03/14/16at 09:26; Start 03/13/16 at 21:00; Stop 03/14/16 at 13:54; Status DC Risperidone (RisperDAL) 1 mg BID PO Last administered on 03/13/16at 08:59; Start 03/10/16 at 21:00; Stop 03/13/16 at 10:09; Status DC Risperidone (RisperDAL) 2 mg BID PO Last administered on 03/10/16at 08:15; Start 03/09/16 at 21:00; Stop 03/10/16 at 12:52; Status DC Trazodone HCl (Desyrel) 100 mg QHSP PRN PO INSOMNIA Last administered on 22:16; Start 04/07/16 at 09:15; Stop 05/08/16 at 09:00 Trazodone HCl (Desyrel) 100 mg QHSP PRN PO INSOMNIA Last administered on 22:01; Start 03/09/16 at 16:30; Stop 04/07/16 at 09:04; Status DC Tuberculin PPD (Aplisol, Ppd) 5 units 1T@10 ID Last administered on 03/22/16at 13:43; Start 03/22/16 at 10:00; Stop 03/22/16 at 23:59; Status DC Tuberculin PPD (Aplisol, Ppd) 5 units NOW ONCE ID ; Start 03/22/16 at 08:15; Stop 03/22/16 at 09:28; Status DC Allergies Coded Allergies: No Known Allergies (Unverified , 02/26/16) Tona Norman Apr 12, 2016 11:10
[2016-04-12 18:00] VITALS: BP 121/63
[2016-04-12] MEDS: DIVALPROEX 500 MG TAB PO SCH (20:19)
[2016-04-12] MEDS: OLANZapine 10 MG TAB PO SCH (20:19)
[2016-04-12] MEDS: traZODone 50 MG TAB PO PRN (22:36)
[2016-04-13 06:42] VITALS: BP 119/75
[2016-04-13] MEDS: DIVALPROEX 250 MG TAB PO SCH (08:05)
--- NOTE | 2016-04-13 08:36 | ECGEPIP ---
Stationary ECG Study [facility] Test Date: 2016-04-12 Pat Name: FREDERIC GALLO Department: Room: [place] [address] Gender: F Lard Refiner: ZAC : 1995 Requested By: Tona Norman Order Number: [id number] Reading MD: Ken Carpio Measurements Intervals [place] Rate: 85 P: 51 AL: 147 QRS: 76 QRSD: 88 T: 48 QT: 356 QTc: 424 Interpretive Statements Normal sinus rhythm Normal EKG No significant change when compared to prior tracing of 04/10/2016 Electronically Signed On 04-13-2016 8:35:41 EST by Ken Carpio
--- NOTE | 2016-04-13 08:51 | DS.PDOC ---
[facility] Discharge Summary Discharge Summary DATE OF ADMISSION: Mar 09, 2016 at 22:06 DATE OF DISCHARGE: Apr 13, 2016 HISTORY: Patient is a 20-year-old female with past history of unspecified psychotic disorder who was recently discharged from [facility] presented again one day post discharge after her parents had called the unit stating that she had been up all night, and was saying very bizarre things to them. The patient stated that after she went home she had not been able to see her friends Clayton and Steph, and patient indicated this is been a major issue for her and stated, "Clayton and I are supposed to be together, if we don't bad things are happening. The patient repeatedly stated that she needed to be with her friends Clayton and Steph, indicated she was involved romantically with Clayton, and added that the world would end in 3 days if she was not able to be with him. When asked to provide clarification as to what will happen in 3 days patient stated, "bad things, but I need to stay positive and think good things. Patient noted that if she is not able to have her desired relationship the world will be covered in a massive snowstorm. Patient repeatedly asked manager configuration if interviewer had Clayton's number so that patient could call him to make arrangements to see him. Patient also referred to her parents in quotations, did not provide explanation as to meaning of reference style, however collateral information from her nursing staff today indicate that she does not believe that her parents are her biological parents, but also states that she was not adopted. PAST PSYCHIATRIC HISTORY: Patients only known psychiatric admission was in [facility] from 02/27/2016-03/07/2016. She denied any prior psychiatric history before that, and also denied any suicide attempts. MEDICAL HISTORY: No known chronic medical problems, patient denies history of seizure and head injury. Head CT completed 03/01/17 with no indication of intracranial lesion. EEG completed 03/16/16 within normal limits. Patient has history of tachycardia, has been evaluated by PA, is asymptomatic and currently not tachycardic. Labs within normal limits on admission with exception of elevated chloride and glucose. HCG and UDS negative on admission. TEST RESULTS: Valproic acid level completed 04/05/16 101.3. Patient was asymptomatic for toxicity; repeat test ordered for 04/07/16, results not available,, reordered for 04/11/15. Depakote level on 04/11/16 was 119.2 Depakote level on 03/20/16 was 94.8 Depakote level on 03/19/16 was 108.5 EKG from 03/22/16 - SINUS RHYTHM, Within normal limits. Repolarization has normalized in comparison to 02/28/2016. EKG repeated 03/31/16 SINUS RHYTHM NO CHANGE 03/22/16 EKG repeated 04/12/16 Normal sinus rhythm. Normal EKG. No significant change when compared to prior tracing of 04/10/2016 Lipid profile ordered 03/31/16 in preparation for Zyprexa initiation. Results WNL except glucose 107 (down from 120 on 03/09/16). FAMILY PSYCHIATRIC HISTORY: No known family psychiatric history SOCIAL HISTORY: Patient is single, never , no children, was working part- time at [employer], lives with biological parents and her siblings. SUBSTANCE ABUSE HISTORY: Patient had previously reported daily cannabis use. Questionable use of LSD, patient has at times denied and confirmed use. LEGAL HISTORY: Patient denies history TREATMENT PROGRESS ON UNIT: Patient has adjusted well to unit, she is pleasant, cooperative, and has participated in unit programming. Patient had returned to inpatient treatment one day post discharge after last hospitalization due to experiencing acute exacerbation of symptoms of psychosis. Patient has benefited from Depakote for mood stabilization. Patient was trialed on Risperdal and experienced symptoms of EPS at elevated doses, was then trialed on Abilify with little response, and is currently being cross titrated to Zyprexa. Patient appears to be sensitive to medication and may be slow metabolizer. Patient has begun to show some positive response to Zyprexa and indicates she is feeling better. Patient also utilizes trazodone at bedtime for sleep and has Klonopin available to her on as-needed basis for symptoms of anxiety. Patient has consistently denied suicidal and homicidal ideation, recently denies symptoms of anxiety and depression, denies audiovisual hallucinations and urge to engage in self-injurious behavior. Patient denies paranoia or delusions, however continues to express episcopal preoccupation and paranoia related to events which she believes are going to occur on 04/18/16. Patient currently denies symptoms of audiovisual hallucinations and denies urge to engage in self- injurious behavior. Patient remains generally redirectable and continues to show signs of improvement in concentration and focus. Patient indicates she believes Zyprexa is more effective than Abilify. Patient' s response to medication change has been monitored and cross titration has generally been tolerated by patient. Patient has exhibited mild intermittent tremor 2 days and potential medication side effects have been reviewed with patient who verbalized understanding and indicated she is in agreement continuation of medication change. When taking Abilify and Depakote 500 mg po BID, patient reported symptoms of blurred vision, at which time Depakote dose was reduced in effort to address possibility of medication side effects. Patient responded poorly to dose decrease and exhibited signs of notable mood lability, Depakote dose was subsequently increased with good effect and patient states she no longer experiences symptoms of blurred vision. Patient's Depakote level ordered 04/05/16 was 101.3. Patient was symptomatic and financial writer requested repeat lab with result of 119.2 available on 04/11/16. Patient has mild tremor to hands with no signs of change/worsening, remains asymptomatic and denies symptoms of Depakote toxicity. Due to patient exhibiting notable mood lability in past with Depakote 500 mg dose reduction, Depakote dose was recently reduced to 250 mg po am with continuation of Depakote 500 mg po hs and will require monitoring and follow up labs at [facility] to evaluate patients response to dosing adjustment. Patient indicates sleep remains good, denies nightmare symptoms, and states appetite and energy levels remain within normal limits. Patient denies symptoms of physical pain. As previously stated, patient does appear to be making slow progress in treatment, however, patient makes repeated efforts to tell provider what she perceives they need to hear in order to discharge her to home with friends. During sustained interactions patient continues to exhibit paranoia, disorganized and delusional thinking, and preoccupation. Patient has repeatedly refused to sign an BECKY for treatment coordination with parents but recently began vacillating in willingness to allow treatment team contact with parents. Per rental coordinator, patients parents have indicated that patients discharge to home is not an option at this time. Patient verbalizes awareness of transfer to [facility]. MENTAL STATUS EXAMINATION ON DISCHARGE: Appearance -20 year old woman, appears stated age, adequate grooming, dressed in own clothing, exhibits more spontaneous and less prolonged gaze, exhibits mild intermittent tremor to hands, denies experiencing blurred vision. Behavior - calm, cooperative, generally engageable Attitude - cooperative with interview Speech - less tangential, normal volume Thought content -denies suicidal/homicidal ideation, denies audiovisual hallucinations, denies urge to engage in self-injurious behavior, appears paranoid, denies compulsions, does not appear to be responding to internal stimuli; denies audiovisual hallucinations, remains religiously preoccupied. Thought process -logical at times but at other times is illogical, perseverative Mood - "I'm fine, is that the answer you want me to give so I can go home?" Patient displays mood lability today, tearfulness X 2 Affect -blunted, brightens at times, inappropriate smiling X 1 Cognition - grossly intact Orientation - person and place, unable to assess orientation to time Insight: Limited, some improvement since initiation of cross titration Judgement: Remains poor CONDITION ON DISCHARGE: Stable, no suicidal or homicidal ideation DIAGNOSIS ON DISCHARGE: Schizophreniform disorder MEDICATIONS ON DISCHARGE: See below FOLLOW UP PLAN: Transfer to [facility] with recommendation to continue cross titration of patient from Abilify to Zyprexa and continuation of Depakote 250 mg po q am and 500 mg po q hs, continue trazodone 100 mg at bedtime PRN and Klonopin 0.5 mg po BID PRN for anxiety with taper once patient is stabilized. Monitor tremor and for tachycardia; patient may be sensitive to medications and may be slow metabolizer Repeat Depakote level on 04/14 - 04/15/16 Patient to follow up with PCM at [facility] within 5-7 days of discharge TIME SPENT: 40 minutes Vital Signs Vital Sign - Last 24 Hours 04/12/16 04/13/16 18:00 06:42 Temp 97.8 98.1 Pulse 104 76 Resp 16 16 B/P 121/63 119/75 Medications Scheduled (Depakote) 500 Mg Tab 500 MG PO QHS MOOD STABILIZER (Reported) Divalproex Sodium (Depakote) 250 Mg Tab 250 MG PO DAILY MOOD STABILIZER ( Reported) Olanzapine (Zyprexa) 10 Mg Tab 10 MG PO QHS MOOD/PSYCHOSIS (Reported) Scheduled PRN Clonazepam (Klonopin) 0.5 Mg Tab 0.5 MG PO BIDP PRN PRN ANXIETY (Reported) Trazodone HCl (Trazodone HCl) 100 Mg Tab 100 MG PO QHSP PRN PRN INSOMNIA ( Reported) Allergies Coded Allergies: No Known Allergies (Unverified , 02/26/16) Tona Norman Apr 13, 2016 08:51
[2016-04-13] MEDS ORDERED: DEPA250T32 PO (09:19)
[2016-04-13] MEDS ORDERED: ZYPR10TA PO (09:19)
[2016-04-13] MEDS ORDERED: TRAZ100T4 PO (09:19)
[2016-04-13] MEDS ORDERED: DEPA1TAB3 PO (09:19)
[2016-04-13] MEDS ORDERED: KLON0.5T PO (09:19)
[2016-04-13] MEDS: HALOPERIDOL 5 MG TAB PO PRN (14:12)
== END 2016-04-13 15:43 | DRG 885 ==
LOC: M ED 13:21 → M PSY 22:06
PROVIDERS: ADMIT Psychiatry & Neurology Psychiatry; ATTEND Psychiatry & Neurology Psychiatry
DX: F20.81 Schizophreniform disorder (principal); R00.0 Tachycardia, unspecified

== ENCOUNTER 2016-09-29 10:09 | Inpatient (IN) | payer MEDICAID, OTHER ==
[~2016-09-29] VITALS: Ht 167.6 cm; Wt 91.4 kg
[~2016-09-29 10:09] MED LIST changes: +BENZ-52 PO; -BENZ1TA PO; +DEPA1TAB3 PO; +DEPA250T32 PO; +KLON0.5T PO; -RISP0.5T16 PO; +RISP0.5T21 PO; +TRAZ-136 PO; +TRAZ50TA11 PO; +ZYPR10TA PO
[2016-09-29 10:56] LABS: MEAN CORPUSCULAR HEMOGLOBIN 30.9 pg (27.0-33.0); MEAN CORPUSCULAR HGB CONC 35.5 g/dl (32.0-36.5); RED CELL DISTRIBUTION WIDTH 12.1 % (11.5-14.5); WHITE BLOOD COUNT 7.2 K/mm3 (4.0-10.0)
[2016-09-29 11:07] LABS: CONTROL LINE HCG INT CTR LINE PRESENT
[2016-09-29 11:18] LABS: METHADONE URINE NEGATIVE (NEGATIVE)
[2016-09-29 11:27] LABS: ALBUMIN 3.9 GM/DL (3.2-5.2); ALBUMIN/GLOBULIN RATIO 1.03 (1.00-1.93); ALKALINE PHOSPHATASE 82 U/L (45-117); ALT/SGPT 122 U/L (12-78); ANION GAP 10 MEQ/L (8-16); AST/SGOT 49 U/L (15-37); BILIRUBIN,DIRECT 0.1 MG/DL (0.0-0.2); BILIRUBIN,TOTAL 0.6 MG/DL (0.2-1.0); BLOOD UREA NITROGEN 11 MG/DL (7-18); CALCIUM LEVEL 9.6 MG/DL (8.5-10.1); CARBON DIOXIDE LEVEL 22 MEQ/L (21-32); CHLORIDE LEVEL 107 MEQ/L (98-107); CREATININE FOR GFR 0.91 MG/DL (0.55-1.02); GLUCOSE, FASTING 113 MG/DL (70-105); POTASSIUM SERUM 3.8 MEQ/L (3.5-5.1); SODIUM LEVEL 139 MEQ/L (136-145); TOTAL PROTEIN 7.7 GM/DL (6.4-8.2)
[2016-09-29] MEDS ORDERED: traZODone 50 MG TAB PO PRN (12:00)
[2016-09-29] MEDS ORDERED: ACETAMINOPHEN TAB 650MG DOSE (2X325MG) PO PRN (12:00)
[2016-09-29] MEDS ORDERED: MAALOX 30 ML SUSP *UDC PO PRN (12:00)
[2016-09-29] MEDS ORDERED: MOM 30ML SUSPENSION UDC PO PRN (12:00)
[2016-09-29] MEDS ORDERED: SERTRALINE HCL 50 MG TAB PO ONE (12:00)
[2016-09-29] MEDS ORDERED: PATIENT COMMENT (13:05)
[2016-09-29 18:00] VITALS: BP 130/84
[2016-09-30 06:32] VITALS: BP 125/71
[2016-09-30] MEDS ORDERED: NICOTINE 14 MG/24 HR TRANSDERMAL TD SCH (13:45)
[2016-09-30] MEDS: SERTRALINE HCL 50 MG TAB PO SCH (15:11)
[2016-09-30 18:00] VITALS: BP 151/76
[2016-10-01 06:00] VITALS: BP 127/68
[2016-10-01 07:41] LABS: ALBUMIN 3.8 GM/DL (3.2-5.2); ALBUMIN/GLOBULIN RATIO 1.03 (1.00-1.93); ALKALINE PHOSPHATASE 79 U/L (45-117); ALT/SGPT 104 U/L (12-78); ANION GAP 8 MEQ/L (8-16); AST/SGOT 35 U/L (15-37); BILIRUBIN,TOTAL 0.5 MG/DL (0.2-1.0); BLOOD UREA NITROGEN 11 MG/DL (7-18); CARBON DIOXIDE LEVEL 25 MEQ/L (21-32); CHLORIDE LEVEL 106 MEQ/L (98-107); CREATININE FOR GFR 0.83 MG/DL (0.55-1.02); GLUCOSE, FASTING 89 MG/DL (70-105); SODIUM LEVEL 139 MEQ/L (136-145); TOTAL PROTEIN 7.5 GM/DL (6.4-8.2)
[2016-10-01] MEDS: SERTRALINE HCL 50 MG TAB PO SCH (09:03)
--- NOTE | 2016-10-01 10:08 | MHHPE ---
DATE OF ADMISSION: 09/29/2016 DATE OF EVALUATION: 09/30/2016 HISTORY OF PRESENT ILLNESS: This is the second psychiatric hospitalization for this 20-year-old white woman who was admitted due to depression and with suicidal thoughts without a plan. The patient stated that "Everything is crashing around me." She said her parents have kicked her out of their home. She also says she was not getting along with her girlfriend with whom she moved in. She is also stressed out. She has no job because she lost her job. She is vague as to how or why this happened. The patient today tells me, however, that she is great, that she is not depressed; and today, she denies that she ever was having any problems with her girlfriend; and basically, she is minimizing everything. The patient admits that she uses cannabis about 1 gram every other day. She states that she does notice that when she uses the cannabis, that is when she starts feeling down. Of note is that the patient had a prior psychiatric hospitalization in February of 2016. Was really psychotic. She feels now that that was caused by the fact that she used LSD. She said she only used it one time. Of note was that she was hospitalized two consecutive admissions spanning from 02/27/2016 until 04/13/2016. She was transferred to [facility] for further stabilization prior to transfer from [facility]. She was diagnosed with schizophreniform disorder, and she was discharged on Depakote 250 mg every morning and 500 mg nightly. She apparently was on Abilify, but I am not sure of the dose, and they had her on Klonopin 0.5 mg twice a day. She says that she was at [facility] for 2 weeks; and at that point when she was discharged, she went to [facility]; and she said that they gradually started to cut back on her medications but admits that in part that was because she did not feel she needed those. The patient says that she was discharged on Zoloft, and she is not sure of the dose. That was one of the medications she was discharged on and the one she was last taking. Now, she feels that the Zoloft had been helping her mood, and she would like to get restarted on the Zoloft. The patient just told me, however, that she feels fine today, and she is really minimizing all her symptoms, but then she admits that she has times that she does get depressed, but she is very vague as to her symptoms of depression; and again, she is trying to minimize them. The patient denies that she has had any further problems with any problems with her thinking. PAST PSYCHIATRIC HISTORY: This is as noted above. She was hospitalized twice in February 2016. She was transferred to [facility]. Diagnosed with schizophreniform disorder. I do want to clarify that the patient says that she did try to kill herself twice when she was in the hospital in February of 2016 by taking a wet towel and trying to suffocate herself by putting it over her face. FAMILY HISTORY: There is no psychiatric illness in the family. MEDICAL HISTORY: The patient states that she has no history of any medical problems. SUBSTANCE ABUSE HISTORY: This is as noted above. She uses cannabis 1 gram every other day. ABUSE HISTORY: She denies any history of any physical or sexual abuse. REVIEW OF SYSTEMS: VITAL SIGNS: Blood pressure 125/71, pulse 85, respirations 18. APPEARANCE: The patient is dressed in casual clothing and appears to be presenting with good hygiene. NEUROMUSCULAR SYSTEM: The patient's gait is normal. There are no involuntary movements noted. All other systems were reviewed and found to be negative. MENTAL STATUS EXAMINATION: This patient is alert and oriented times three. Eye contact is fairly good. She is not exhibiting any formal thought disorder. Psychomotor activity is normal. She says her mood is good. Her affect is full range and appropriate. She is not psychotic. She is denying being suicidal or homicidal. Concentration is fair. Memory is intact. Insight and judgment is fair. DIAGNOSES: 1. Other specified depressive disorder. 2. Cannabis use disorder, severe. 3. History of schizophreniform disorder. TREATMENT PLAN: At this point, the patient is really minimizing all of her symptoms. She is denying that she is suicidal, however, she admits that she wants to get restarted on her Zoloft because she says she has some episodes of depression. We will restart the Zoloft 50 mg every day. We will continue to monitor the patient for continued resolution of suicidal ideations and continue stabilization of her mood. We will plan to discharge her with appropriate followup when stable. ADONISD
[2016-10-01 18:00] VITALS: BP 148/88
[2016-10-01] MEDS ORDERED: OLANZapine ORAL DISINTEGRATING TAB 5MG PO ONE (19:45)
--- NOTE | 2016-10-01 21:18 | HPE ---
DATE OF ADMISSION: 09/29/2016 Please refer to the psychiatric history and evaluation for further details on this admission. This examination and history is intended for medical issues which may need treatment, followup, or consult on this 20-year-old female. ALLERGIES: No known allergies. PAST MEDICAL HISTORY: Depression. CT scan of the brain on 03/01/2016 was negative. PAST SURGICAL HISTORY: Negative. SOCIAL HISTORY: She is single, getting . She lives in [place]. She smokes about two cigarettes per day. She drinks alcohol about once a month. Smokes marijuana 2-3 times a week. LABORATORY STUDIES: CBC was normal. Electrolytes were normal. Nonfasting glucose was 118. AST was 69, ALT 122. Urine drug screen was unremarkable. HOME MEDICATIONS: None. Ten systems review was done and was unremarkable other than some pain in her right lower leg which has been splinted and pelvis has been corrected with metal. PHYSICAL EXAMINATION: 20-year-old cooperative female, in no acute distress. Vital signs are: Blood pressure 134/80, pulse 88, respirations 16, temperature 97. Patient is alert and oriented times three. Pupils equal and reactive to light. Extraocular movements are intact. Cornea and sclerae clear. Conjunctivae is normal. No facial asymmetry. Pharynx, tongue, gums pink and moist. Tongue is midline. NECK: Supple without lymphadenopathy. No thyromegaly. No goiter. Carotids 2+ without bruit. LUNGS: Clear to auscultation without wheeze or retraction. HEART: Regular. ABDOMEN: Benign. Bowel sounds positive. GENITOURINARY/RECTAL: Not done. EXTREMITIES: Show equal strength. Full range of motion. No cyanosis, clubbing , or edema. Peripheral pulses equal and palpable bilaterally. Skin is warm and dry. IMPRESSION/PLAN: 1. Psychiatric plan per psychiatry. MTDD
--- NOTE | 2016-10-02 02:54 | IPN ---
DATE OF SERVICE: 10/01/2016 The patient today states "I'm doing great." She says she slept good. She has no complaints. I am not eliciting any mood symptoms in this patient. MENTAL STATUS EXAMINATION: She is alert and oriented times three. Eye contact fairly good. She is verbally spontaneous. There is no formal thought disorder. Mood is good. Affect is full range and appropriate. She is not psychotic, suicidal, homicidal. Concentration is fair. Memory is intact. Insight and judgment is fair. DIAGNOSES: 1. Other specified depressive disorder. 2. History of schizophreniform disorder. 3. Cannabis use disorder. TREATMENT PLAN: At this point, we will further observe and evaluate this patient for continued elevation and stabilization of her mood and continued resolution of suicidal ideation.
[2016-10-02 06:49] VITALS: BP 123/66
[2016-10-02 07:00] LABS: ALBUMIN 3.6 GM/DL (3.2-5.2); ALBUMIN/GLOBULIN RATIO 1.06 (1.00-1.93); ALKALINE PHOSPHATASE 82 U/L (45-117); ALT/SGPT 94 U/L (12-78); AST/SGOT 29 U/L (15-37); BILIRUBIN,DIRECT < 0.1 MG/DL (0.0-0.2); BILIRUBIN,TOTAL 0.3 MG/DL (0.2-1.0)
[2016-10-02] MEDS: SERTRALINE HCL 50 MG TAB PO SCH (08:49)
--- NOTE | 2016-10-02 14:21 | MHIPNPDOC ---
[facility] Progress Note Progress Note DATE OF SERVICE: 10/02/16 HISTORY: . VITAL SIGNS: See below. NEW TEST RESULTS: . CURRENT MEDICATIONS: See below. MENTAL STATUS EXAMINATION: Patient is a 20-year old female, who is pacing in hallway with male peer. She is wearing hospital attire, eye contact is good. She is pleasant. Speech: Is spontaneous and clear Language skills are intact Thought processes including: goal directed. Thought content: wants to be discharged. Abstract reasoning, and computation: good. Description of associations: good. Description of abnormal or psychotic thoughts: pt denies perceptual disturbance. pt denies thoughts of self-harm or suicide, no homicidal thoughts Judgment: good Insight: fair. Orientation: well oriented in all spheres. Recent and remote memory:appears intact Attention span and concentration:adequate Fund of knowledge: full Mood: euthymic Affect: blunted. DIAGNOSES: Other specified depressive disorder. 2. Cannabis use disorder, severe. 3. History of schizophreniform disorder. ASSESSMENT: pt agreed to meet with securities underwriter in the absence of her usual practitioner. pt denies any SI or depressed mood. She is asking for discharge and would like to go tomorrow if possible. She has resumed taking sertraline and states she will remain on the medication. She is going to try and get her job back of 2 years at [employer]. She wants to return to her girlfriends house. She denies side effects to sertraline and states she is tolerating it well. She agrees to remain in outpatient treatment with a med mgt provider. Pt appears stable and should be considered for discharge in the a.m. per her request. MANAGEMENT PLAN: continue medications, continue close observation, encourage attending groups through out the day, monitor sleep and effectiveness of medications. TIME SPENT: 15 minutes. Vital Signs Vital Signs Date Time Temp Pulse Resp B/P (MAP) Pulse Ox O2 Delivery O2 Flow Rate FiO2 10/02/16 06:49 97.1 65 16 123/66 (85) 09/29/16 12:08 99 Room Air Laboratory Data 24H Labs Laboratory Tests 2 10/02/16 06:25: Aspartate Amino Transf (AST/SGOT) 29, Alanine Aminotransferase (ALT/SGPT) 94H, Alkaline Phosphatase 82, Total Bilirubin 0.3, Direct Bilirubin < 0.1, Total Protein 7.0, Albumin 3.6, Albumin/Globulin Ratio 1.06 Current Medications Current Medications Acetaminophen (Tylenol Tab) 650 mg Q6HP PRN PO HEADACHE or DISCOMFORT; Start at 12:00; Stop 10/29/16 at 11:59 Al Hydrox/Mg Hydrox/Simethicone (Mylanta) 30 ml Q4HP PRN PO HEARTBURN/ INDIGESTION; Start 09/29/16 at 12:00; Stop 10/29/16 at 11:59 Home Med (Med Rec Complete!) ASDIRECTED XX ; Start 09/29/16 at 13:15; Stop at 13:15; Status DC Magnesium Hydroxide (Milk Of Magnesia) 30 ml DAILYPRN PRN PO CONSTIPATION; Start 09/29/16 at 12:00; Stop 10/29/16 at 11:59 Nicotine (Nicoderm Cq 14mg) 1 patch DAILY TD ; Start 09/30/16 at 13:45; Stop 09/30 at 13:45; Status DC Sertraline HCl (Zoloft) 50 mg QAM PO Last administered on 10/02/16t 08:49; Start 09/30/16 at 09:00; Stop 10/30/16 at 08:59 Trazodone HCl (Desyrel) 50 mg QHSP PRN PO INSOMNIA; Start 09/29/16 at 12:00; Stop 10/29/16 at 11:59 Allergies Coded Allergies: No Known Allergies (Unverified , 02/26/16) Lauren Caputo Oct 02, 2016 14:21
[2016-10-02 18:00] VITALS: BP 121/76
[2016-10-03 06:35] VITALS: BP 133/63
[2016-10-03] MEDS: SERTRALINE HCL 50 MG TAB PO SCH (08:31)
--- NOTE | 2016-10-03 15:45 | MHIPNPDOC ---
[facility] Progress Note Progress Note DATE OF SERVICE: 10/03/16 HISTORY: This is the third psychiatric hospitalization at [facility] for this patient who was last discharged from [facility] to [facility] for long-term treatment for schizophreniform disorder. Patient has been readmitted due to experiencing suicidal ideation sans plan after being kicked out of parents home and asked to leave home of her girlfriends mother. Patient told the admitting sped teacher that she and girlfriend were not getting along. Admitting sped teacher indicates that patient had been tapering off psychotropic medications through her outpatient provider, made requested time of admission for Zoloft restart, was minimizing her symptoms and need for medication. Patient has history of 2 prior suicide attempts while in hospital, has history of minimizing symptoms and medication noncompliance, and substance abuse. President met with patient today to assess treatment progress on inpatient unit. This is this insurance underwriter sales's first interaction with patient during current admission and patient is requesting discharge today. Patient informs insurance underwriter sales that she and girlfriend never had a disagreement but that girlfriend's mother asked her to leave for home. Patient indicates parents have also asked her leave their home, provides vague explanation as to why and indicates she may now return to parents home. Patient informs insurance underwriter sales that outpatient provider was tapering her off her medications and that she had only been taking Zoloft until she recently discontinued that as well, dose unknown. Patient admits that she did not follow through on outpatient treatment, provides conflicting information as to status of medication she was being prescribed and discontinuation. Patient reports improvement to symptoms of anxiety and depression since admission to hospital, denies suicidal and homicidal ideation, denies auditory visual hallucinations, denies urge to engage in self-injurious behavior. Patient indicates she is sleeping well and denies nightmare symptoms, indicates appetite is stable, denies challenges to energy level or concentration and focus. Patient denies symptoms of physical pain and presents with no signs of acute distress at time of interaction. Of note: Message left for Ricky Reyes of [facility] and [facility] ([phone]), requesting return telephone call to discuss outpatient treatment and history and medications. building coordinator spoke with parents who have indicated patient was asked to leave family home due to history of medication and treatment noncompliance and substance abuse. VITAL SIGNS: See below. NEW TEST RESULTS: 10/01/16 elevated ALT, elevated ALT MEDICAL/SURGICAL HISTORY: Patient denies chronic medical conditions, denies history of seizure or head injury Labs on admission indicated elevated glucose, AST, ALT 03/01/16 CT of brain - negative 04/12/16 Normal sinus rhythm Normal EKG No significant change when compared to prior tracing of 04/10/2016 UDS positive for cannabinoids HCG negative CURRENT MEDICATIONS: See below. MENTAL STATUS EXAMINATION: Patient is a 20-year old female, who is engageable, cooperative, makes fair eye contact, presents with adequate personal hygiene, dressed in personal clothing, and relates with steady gait, appears stated age. Speech: Of normal rate, rhythm, volume, spontaneous, coherent Language skills adequate Thought processes including: Linear, logical, goal-directed Thought content: Rational, logical, no tangentiality or paranoia noted, perseverative to discharge Description of abnormal or psychotic thoughts: Denies suicidal or homicidal ideation, denies auditory or visual hallucinations, does not appear to be responding to internal stimuli, does not endorse bizarre or paranoid ideation, denies preoccupation with violence Judgment: Limited Insight: Limited Orientation: A and O 3 Recent and remote memory:appears intact Attention span and concentration:adequate Fund of knowledge: Within normal limits Mood: "I feel good, can I be discharged now?" Affect: blunted. DIAGNOSES: Unspecified depressive disorder, cannabis use disorder, severe, rule out polysubstance abuse disorder, history of schizophreniform disorder ASSESSMENT: Patient appears to be adjusting to unit, was engageable, has been pleasant and cooperative, visible on unit, participating in unit activities, has presented with no behavior management challenges. Patient minimizes symptoms and events which led to current hospitalization and provides conflicting information regarding discontinuation of her medication, also provides conflicting information as to status of relationship with girlfriend and housing status. Patient has been restarted on Zoloft, indicates medication is effective in improving mood and reducing symptoms of anxiety, denies medication side effects. Patient denies symptoms of agitation, irritability, impulsivity, or mood lability, denies need for mood stabilizer and denies need for Zoloft dosing adjustment. Patient denies experiencing current suicidal or homicidal ideation and verbalizes awareness of how to access supportive services on the unit if needed. Patient is requesting to be discharged, is aware that student records coordinator is working on accessing collateral information and arranging treatment information to ensure safe discharge planning. Patient states when discharged she plans to discharge to the home of her parents, is agreeable to participating in follow-up outpatient psychotherapy and medication management services through [facility], has also been strongly encouraged to participate in outpatient substance abuse treatment. MANAGEMENT PLAN: Continue Zoloft 50 mg po q am Maintain safety precautions Patient to attend groups and participate in unit programming to develop coping strategies Engage patient in discharge planning process and arrange meeting with support system to ensure safe discharge planning when appropriate Patient to follow up with PCM upon discharge TIME SPENT: 35 minutes. Vital Signs Vital Signs Date Time Temp Pulse Resp B/P (MAP) Pulse Ox O2 Delivery O2 Flow Rate FiO2 10/03/16 06:35 99.3 56 16 133/63 (86) 09/29/16 12:08 99 Room Air Current Medications Current Medications Acetaminophen (Tylenol Tab) 650 mg Q6HP PRN PO HEADACHE or DISCOMFORT; Start at 12:00; Stop 10/29/16 at 11:59 Al Hydrox/Mg Hydrox/Simethicone (Mylanta) 30 ml Q4HP PRN PO HEARTBURN/ INDIGESTION; Start 09/29/16 at 12:00; Stop 10/29/16 at 11:59 Home Med (Med Rec Complete!) ASDIRECTED XX ; Start 09/29/16 at 13:15; Stop at 13:15; Status DC Magnesium Hydroxide (Milk Of Magnesia) 30 ml DAILYPRN PRN PO CONSTIPATION; Start 09/29/16 at 12:00; Stop 10/29/16 at 11:59 Nicotine (Nicoderm Cq 14mg) 1 patch DAILY TD ; Start 09/30/16 at 13:45; Stop 09/30 at 13:45; Status DC Sertraline HCl (Zoloft) 50 mg QAM PO Last administered on 10/03/16t 08:31; Start 09/30/16 at 09:00; Stop 10/30/16 at 08:59 Trazodone HCl (Desyrel) 50 mg QHSP PRN PO INSOMNIA; Start 09/29/16 at 12:00; Stop 10/29/16 at 11:59 Allergies Coded Allergies: No Known Allergies (Unverified , 02/26/16) Tona Norman 11, 2017 15:45
[2016-10-03 18:00] VITALS: BP 117/60
[2016-10-04 06:28] VITALS: BP 155/94
[2016-10-04] MEDS: SERTRALINE HCL 50 MG TAB PO SCH (08:52)
[2016-10-04 15:16] VITALS: BP 135/90
--- NOTE | 2016-10-04 15:16 | MHDSPDOC ---
[facility] Discharge Summary Discharge Summary DATE OF ADMISSION: Sep 29, 2016 at 11:57 DATE OF DISCHARGE: Oct 04, 2016 HISTORY (Completed by Dr. Galo at time of admission): This is the second psychiatric hospitalization for this 20-year-old white woman who was admitted due to depression and with suicidal thoughts without a plan. The patient stated that "Everything is crashing around me." She said her parents have kicked her out of their home. She also says she was not getting along with her girlfriend with whom she moved in. She is also stressed out. She has no job because she lost her job. She is vague as to how or why this happened. The patient today tells me, however, that she is great, that she is not depressed; and today, she denies that she ever was having any problems with her girlfriend; and basically, she is minimizing everything. The patient admits that she uses cannabis about 1 gram every other day. She states that she does notice that when she uses the cannabis, that is when she starts feeling down. Of note is that the patient had a prior psychiatric hospitalization in February of 2016. Was really psychotic. She feels now that that was caused by the fact that she used LSD. She said she only used it one time. Of note was that she was hospitalized two consecutive admissions spanning from 02/27/2016 until 04/13/2016. She was transferred to [facility] for further stabilization prior to transfer from [facility]. She was diagnosed with schizophreniform disorder, and she was discharged on Depakote 250 mg every morning and 500 mg nightly. She apparently was on Abilify, but I am not sure of the dose, and they had her on Klonopin 0.5 mg twice a day. She says that she was at [facility] for 2 weeks; and at that point when she was discharged, she went to [facility]; and she said that they gradually started to cut back on her medications but admits that in part that was because she did not feel she needed those. The patient says that she was discharged on Zoloft, and she is not sure of the dose. That was one of the medications she was discharged on and the one she was last taking. Now, she feels that the Zoloft had been helping her mood, and she would like to get restarted on the Zoloft. The patient just told me, however, that she feels fine today, and she is really minimizing all her symptoms, but then she admits that she has times that she does get depressed, but she is very vague as to her symptoms of depression; and again, she is trying to minimize them. The patient denies that she has had any further problems with any problems with her thinking. PAST PSYCHIATRIC HISTORY: This is as noted above. She was hospitalized twice in February 2016. She was transferred to [facility]. Diagnosed with schizophreniform disorder. I do want to clarify that the patient says that she did try to kill herself twice when she was in the hospital in February of 2016 by taking a wet towel and trying to suffocate herself by putting it over her face. MEDICAL/SURGICAL HISTORY: Patient denies chronic medical conditions, denies history of seizure or head injury Labs on admission indicated elevated glucose, AST, ALT. 10/01/16 elevated ALT, 01/09 elevated ALT, PA has addressed with patient 03/01/16 CT of brain - negative 04/12/16 Normal sinus rhythm Normal EKG No significant change when compared to prior tracing of 04/10/2016 UDS positive for cannabinoids HCG negative FAMILY HISTORY: There is no psychiatric illness in the family. SOCIAL HISTORY: Patient is single, never , no children, was working part -time at [employer], had been living with girlfriend and mother, prior to that was living with biological parents and her siblings. Patient denies any history of any physical or sexual abuse. SUBSTANCE ABUSE HISTORY: This is as noted above. She uses cannabis 1 gram every other day. TREATMENT PROGRESS ON UNIT: This is the third psychiatric hospitalization at [facility] for this patient who was last discharged from [facility] [place] [facility] [place] for schizophreniform disorder. Patient was readmitted due to experiencing suicidal ideation sans plan after being kicked out of parents home and asked to leave home of her girlfriends mother. Patient told the admitting food selector that she and girlfriend were not getting along. Admitting food selector indicates that patient had been tapering off psychotropic medications through her outpatient provider, made requested time of admission for Zoloft restart, was minimizing her symptoms and need for medication. Patient has history of 2 prior suicide attempts while in hospital, has history of minimizing symptoms and medication noncompliance, and substance abuse. Patient has been visible on unit, easily engaged, cooperative with staff, participating in unit programming, and has presented with no overt behavior management challenges. Patient provided some conflicting information during her stay, informed junior copywriter that she and girlfriend never had a disagreement but that girlfriend's mother asked her to leave for home. Patient indicates parents had also asked her to leave the home due to medication and treatment noncompliance, substance abuse, and failure to follow house rules. Patient informed admitting provider that she had been taking Zoloft in the past and requested medication restart. Call placed by this junior copywriter to patient's outpatient provider at [facility], Ricky Reyes, who verified the patient had requested taper off medications with plan to discontinue if tolerated by patient. Amy indicated that patient failed to follow through on treatment and at last appointment (08/01/16) was still taking Risperdal, Cogentin, and Lexapro with good effect, Depakote had been discontinued with no indications of mood lability noted by Amy. Amy was provided with treatment update and informed of patient's impending discharge. Though patient's outpatient provider stated the patient had actually been taking Lexapro prior to abruptly discontinuation, patient has responded well to Zoloft initiation, denies medication side effects, reports improvement to mood, denies irritability, agitation, impulsivity, and mood lability, describes energy level as "stable." Patient denies symptoms of anxiety and depression, denies suicidal and homicidal ideation, denies auditory or visual hallucinations, denies urge to engage in self-injurious behavior. Patient has not needed to utilize sleep aid or anxiolytic during her stay. Patient denies challenges with concentration and focus and indicates she has been sleeping well, denies nightmare symptoms. Patient was provided with education on the potential risks to unborn child should she become while taking psychotropic medications, was strongly encouraged to utilize control if she elects to engage in sexual activity with men while taking psychotropic medication, patient verbalized understanding. Patient is requesting discharge today and community center coordinator has completed family meeting via telephone with patient's parents and aunt, and all parties have denied having concerns related to patient's discharge. Patient has agreed to abide by parents house rules which include following through on outpatient behavioral health treatment, abide by rules of the home, and not engage in substance use/abuse. Patient's parents have indicated they will be out of town until tomorrow and parents and aunt have agreed that patient may discharge to home with aunt where she will stay with aunt until patient's parents return tomorrow, at which time patient will reside with parents. Patient has been strongly encouraged to participate in outpatient substance abuse treatment, has agreed to consider but is declining at this time. Patient is aware she will resume follow-up outpatient psychotherapy and medication management services through [facility]. Patient verbalizes understanding of and agreement with discharge plan. MENTAL STATUS EXAMINATION ON DISCHARGE: Patient is a 20-year old female, who is engageable, cooperative, makes good eye contact, presents with adequate personal hygiene, dressed in personal clothing, ambulates with steady gait, appears stated age. Speech: Of normal rate, rhythm, volume, spontaneous, coherent Language skills adequate Thought processes including: Linear, logical, goal-directed Thought content: Rational, logical, no tangentiality or paranoia noted Description of abnormal or psychotic thoughts: Denies suicidal or homicidal ideation, denies auditory or visual hallucinations, does not appear to be responding to internal stimuli, does not endorse bizarre or paranoid ideation, denies preoccupation with violence Judgment: Fair Insight: Fair Orientation: A and O 3 Recent and remote memory:appears intact Attention span and concentration:adequate Fund of knowledge: Within normal limits Mood: "I feel good, and I feel ready to go home with my parents, I know there are rules and I will respect and live by them." Patient denies anxiety and depression, no mood lability noted Affect: Mild constriction, brightens appropriately, congruent with mood CONDITION ON DISCHARGE: Stable, no suicidal or homicidal ideation DIAGNOSES ON DISCHARGE: Unspecified depressive disorder, cannabis use disorder, severe, rule out polysubstance abuse disorder, history of schizophreniform disorder MEDICATIONS ON DISCHARGE: See below FOLLOW UP PLAN: Continue Zoloft 50 mg po q am Patient to discharge to home with aunt where she will stay until parents returned to town tomorrow, at that time patient will reside with parents and participate in outpatient psychotherapy and medication management services through [facility]. Patient is aware that strong recommendation is also being made for outpatient substance abuse treatment. Patient to follow up with PCM within 5-7 days of discharge. TIME SPENT COORDINATING CARE: 40 minutes. Vital Signs/I&Os Vital Signs Date Time Temp Pulse Resp B/P (MAP) Pulse Ox O2 Delivery O2 Flow Rate FiO2 10/04/16 06:28 98.9 75 18 155/94 (114) 09/29/16 12:08 99 Room Air Medications Scheduled Sertraline Hcl (Sertraline HCl) 50 Mg Tab, 50 MG PO QAM for DEPRESSION, #7 Allergies Coded Allergies: No Known Allergies (Unverified , 02/26/16) Tona Norman Oct 04, 2016 15:16
[2016-10-04] MEDS ORDERED: SERT50TA PO (15:20)
== END 2016-10-04 16:25 | disposition home or self-care (01) | DRG 881 ==
LOC: M ED 10:09 → M ED INP 11:57 → M PSY 13:13
PROVIDERS: ADMIT Psychiatry & Neurology Psychiatry; ATTEND Psychiatry & Neurology Psychiatry
DX: F32.9 Major depressive disorder, single episode, unspecified (principal); F12.20 Cannabis dependence, uncomplicated; F20.81 Schizophreniform disorder; F17.210 Nicotine dependence, cigarettes, uncomplicated; Z91.14 Patient's other noncompliance with medication regimen; Z91.5 Personal history of self-harm

== ENCOUNTER 2017-04-08 11:28 | Inpatient (IN) | payer MEDICAID ==
[2017-04-08 12:29] LABS: HEMATOCRIT 42.4 % (36.0-47.0); MEAN CORPUSCULAR HEMOGLOBIN 28.5 pg (27.0-33.0); MEAN CORPUSCULAR VOLUME 86.4 fl (80.0-96.0); PLATELET COUNT, AUTOMATED 445 10^3/uL (150-450); RED BLOOD COUNT 4.91 10^6/uL (4.00-5.40); RED CELL DISTRIBUTION WIDTH 12.3 % (11.5-14.5)
[2017-04-08 12:40] LABS: CONTROL LINE HCG INT CTR LINE PRESENT; HCG, SERUM QUALITATIVE NEGATIVE (NEGATIVE)
[2017-04-08 12:48] LABS: AMPHETAMINES LEVEL URINE NEGATIVE (NEGATIVE); BARBITURATES URINE NEGATIVE (NEGATIVE); BENZODIAZEPINES URINE NEGATIVE (NEGATIVE); CANNABINOIDS URINE NEGATIVE (NEGATIVE); COCAINE METABOLITE URINE NEGATIVE (NEGATIVE); METHADONE URINE NEGATIVE (NEGATIVE); OPIATES URINE NEGATIVE (NEGATIVE); PHENCYCLIDINE URINE NEGATIVE (NEGATIVE)
[2017-04-08 12:59] LABS: ANION GAP 6 MEQ/L (8-16); BLOOD UREA NITROGEN 10 MG/DL (7-18); CARBON DIOXIDE LEVEL 28 MEQ/L (21-32); CHLORIDE LEVEL 107 MEQ/L (98-107); CREATININE FOR GFR 0.76 MG/DL (0.55-1.02); GLUCOSE, FASTING 98 MG/DL (70-105); POTASSIUM SERUM 4.2 MEQ/L (3.5-5.1); SODIUM LEVEL 141 MEQ/L (136-145)
[2017-04-08 13:00] LABS: ALBUMIN/GLOBULIN RATIO 1.03 (1.00-1.93); ALKALINE PHOSPHATASE 91 U/L (45-117); ALT/SGPT 64 U/L (12-78); AST/SGOT 26 U/L (7-37); BILIRUBIN,DIRECT < 0.1 MG/DL (0.0-0.2); BILIRUBIN,TOTAL 0.2 MG/DL (0.2-1.0); CALCIUM LEVEL 9.4 MG/DL (8.5-10.1); SALICYLATE LEVEL < 1.7 MG/DL (5.0-30.0); TOTAL PROTEIN 7.9 GM/DL (6.4-8.2)
[2017-04-08 13:03] LABS: ACETAMINOPHEN LEVEL < 2.0 UG/ML (10.0-30.0); ETHYL ALCOHOL (ETHANOL) < 0.003 % (0.000-0.010)
[2017-04-08] MEDS ORDERED: MOM 30ML SUSPENSION UDC PO (15:45)
[2017-04-08] MEDS ORDERED: ACETAMINOPHEN TAB 650MG DOSE (2X325MG) PO (15:45)
[2017-04-08] MEDS ORDERED: MAALOX 30 ML SUSP *UDC PO (15:45)
[2017-04-08] MEDS: ARIPiprazole 15 MG TAB (AbiLIFY) PO (20:04)
[2017-04-09] MEDS: ARIPiprazole 15 MG TAB (AbiLIFY) PO ×2 (08:59→20:35)
[2017-04-09] MEDS: traZODone 50 MG TAB PO (23:27)
[2017-04-10] MEDS: ARIPiprazole 15 MG TAB (AbiLIFY) PO ×2 (10:28→20:29)
[2017-04-11] MEDS: **PENDING PPD ENTRY XX (09:00)
[2017-04-11] MEDS: ARIPiprazole 15 MG TAB (AbiLIFY) PO ×2 (09:13→21:32)
[2017-04-11] MEDS: TUBERCULIN PPD 5 UNITS/0.1 ML ID (10:30)
[2017-04-11] MEDS: traZODone 50 MG TAB PO (22:16)
[2017-04-12] MEDS: ARIPiprazole 15 MG TAB (AbiLIFY) PO ×2 (08:04→20:27)
[2017-04-12] MEDS: TUBERCULIN PPD 5 UNITS/0.1 ML ID (14:12)
[2017-04-13] MEDS: ARIPiprazole 15 MG TAB (AbiLIFY) PO ×2 (08:06→20:18)
[2017-04-13] MEDS ORDERED: PPD DOCUMENTATION ENTRY MISC XX (10:00)
[2017-04-14] MEDS: ARIPiprazole 15 MG TAB (AbiLIFY) PO ×2 (08:30→20:20)
[2017-04-14] MEDS: PPD DOCUMENTATION ENTRY MISC XX (13:33)
[2017-04-15] MEDS: ARIPiprazole 15 MG TAB (AbiLIFY) PO ×3 (09:00→20:38)
[2017-04-16] MEDS: ARIPiprazole 15 MG TAB (AbiLIFY) PO ×2 (08:02→20:35)
[2017-04-17] MEDS: ARIPiprazole 15 MG TAB (AbiLIFY) PO ×2 (08:00→20:31)
[2017-04-18] MEDS: ARIPiprazole 15 MG TAB (AbiLIFY) PO (08:02)
[2017-04-18] MEDS ORDERED: PALIPERIDONE 6 MG ER TAB (INVEGA) PO (21:00)
[2017-05-04] MEDS ORDERED: ARIPiprazole MONOHYDRATE 400 MG INJ (ABILIFY)(J0401) IM (09:00)
[2017-05-08] MEDS ORDERED: ARIPiprazole MONOHYDRATE 400 MG INJ (ABILIFY)(J0401) IM (09:00)
== END 2017-04-18 12:00 | disposition home or self-care (01) | DRG 885 ==
LOC: M ED 11:28 → M ED INP 15:40 → M PSY 16:53
DX: F31.60 Bipolar disorder, current episode mixed, unspecified (principal); F11.20 Opioid dependence, uncomplicated; Z79.899 Other long term (current) drug therapy; F10.20 Alcohol dependence, uncomplicated

== ENCOUNTER 2018-01-05 08:13 | Emergency (ER) | payer OTHER, MEDICAID ==
[2018-01-05 09:06] LABS: BASO # 0.1 10^3/uL (0.0-0.2); BASO % 0.6 % (0.0-1.0); EOS # 0.1 10^3/uL (0.0-0.50); HEMATOCRIT 42.4 % (36.0-47.0); HEMOGLOBIN 14.5 g/dl (12.0-15.5); IMMATURE GRANULOCYTE % 0.2 % (0-3.0); LYMPH % 36.7 % (24.0-44.0); MEAN CORPUSCULAR HEMOGLOBIN 29.2 pg (27.0-33.0); MEAN CORPUSCULAR HGB CONC 34.2 g/dl (32.0-36.5); MEAN CORPUSCULAR VOLUME 85.3 fl (80.0-96.0); MONO # 0.8 10^3/uL (0.0-0.8); MONO % 9.8 % (0.0-5.0); NEUTROPHILS # 4.2 10^3/uL (1.8-7.7); NEUTROPHILS % 51.7 % (36.0-66.0); PLATELET COUNT, AUTOMATED 351 10^3/uL (150-450); RED BLOOD COUNT 4.97 10^6/uL (4.00-5.40); RED CELL DISTRIBUTION WIDTH 12.6 % (11.5-14.5); WHITE BLOOD COUNT 8.1 10^3/uL (4.0-10.0)
[2018-01-05 09:32] LABS: CONTROL LINE HCG INT CTR LINE PRESENT; HCG, SERUM QUALITATIVE NEGATIVE (NEGATIVE)
[2018-01-05 09:34] LABS: ALBUMIN 4.1 GM/DL (3.2-5.2); ALBUMIN/GLOBULIN RATIO 1.08 (1.00-1.93); ALKALINE PHOSPHATASE 90 U/L (45-117); ALT/SGPT 82 U/L (12-78); ANION GAP 14 MEQ/L (8-16); AST/SGOT 39 U/L (7-37); BILIRUBIN,TOTAL 0.2 MG/DL (0.2-1.0); BLOOD UREA NITROGEN 7 MG/DL (7-18); CALCIUM LEVEL 8.7 MG/DL (8.5-10.1); CARBON DIOXIDE LEVEL 20 MEQ/L (21-32); CHLORIDE LEVEL 111 MEQ/L (98-107); CREATININE FOR GFR 0.71 MG/DL (0.55-1.30); GLOMERULAR FILTRATION RATE > 60.0 (>60); GLUCOSE, FASTING 109 MG/DL (70-100); POTASSIUM SERUM 3.9 MEQ/L (3.5-5.1); SODIUM LEVEL 145 MEQ/L (136-145); TOTAL PROTEIN 7.9 GM/DL (6.4-8.2)
[2018-01-05] MEDS: AZITHROMYCIN 250 MG TAB PO (10:08)
[2018-01-05] MEDS: ULIPRISTAL ACETATE 30 MG TAB (ELLA) PO (10:08)
[2018-01-05] MEDS: metroNIDAZOLE (FLAGYL) 500 MG TAB PO (10:09)
[2018-01-05] MEDS: cefTRIAXone SOD 250 MG VIAL (J0696) IM (10:09)
[2018-01-05] MEDS: EXPOSURE KIT-ADULT 7 DAY SUPPLY PO (10:10)
[2018-01-07 09:59] LABS: HEPATITIS B SURFACE ANTIBODY POSITIVE (POSITIVE)
[2018-01-07 10:01] LABS: HEPATITIS B SURFACE ANTIGEN NEGATIVE (NEGATIVE)
[2018-01-07 10:29] LABS: HEPATITIS C VIRUS ABY INDEX < 0.0 INDEX (<0.8)
[2018-01-07 10:38] LABS: HIV 1&2 SCREEN CENTAUR NEGATIVE (NEGATIVE)
== END 2018-01-05 11:18 | disposition home or self-care (01) ==
LOC: M ED 08:13
DX: T76.21XA Adult sexual abuse, suspected, initial encounter (principal); Y92.511 Restaurant or cafe as the place of occurrence of the external cause; F17.200 Nicotine dependence, unspecified, uncomplicated
CPT/HCPCS: J0696

== ENCOUNTER 2018-08-20 19:58 | Emergency (ER) | payer OTHER, MEDICAID ==
[~2018-08-20] VITALS: Ht 172.7 cm; Wt 100.0 kg
[~2018-08-20 19:58] MED LIST changes: +ABIL400I IM; +ARIP1TAB3 PO; +PALI1TAB3 PO; +PATIENT COMMENT; +RALT40TA PO; +REME15TA PO; +SERT-141 PO; -TRAZ-136 PO; +TRAZ-163 PO; +TRAZ-252 PO; +TRAZ1TAB10 PO; -TRAZ50TA11 PO; -TRAZO50TA PO; +TRUVTAB PO
[2018-08-20 21:52] LABS: HEMATOCRIT 42.8 % (36.0-47.0); HEMOGLOBIN 14.3 g/dl (12.0-15.5); MEAN CORPUSCULAR HEMOGLOBIN 29.1 pg (27.0-33.0); MEAN CORPUSCULAR HGB CONC 33.4 g/dl (32.0-36.5); PLATELET COUNT, AUTOMATED 337 10^3/uL (150-450); RED BLOOD COUNT 4.92 10^6/uL (4.00-5.40)
[2018-08-20 22:18] LABS: AMPHETAMINES LEVEL URINE NEGATIVE (NEGATIVE); BARBITURATES URINE NEGATIVE (NEGATIVE); BENZODIAZEPINES URINE NEGATIVE (NEGATIVE); CANNABINOIDS URINE POSITIVE (NEGATIVE); COCAINE METABOLITE URINE NEGATIVE (NEGATIVE); METHADONE URINE NEGATIVE (NEGATIVE); OPIATES URINE NEGATIVE (NEGATIVE); PHENCYCLIDINE URINE NEGATIVE (NEGATIVE)
[2018-08-20 22:25] LABS: HCG, SERUM QUALITATIVE NEGATIVE (NEGATIVE)
[2018-08-20 22:42] LABS: BLOOD UREA NITROGEN 13 MG/DL (7-18); CALCIUM LEVEL 9.5 MG/DL (8.5-10.1); CARBON DIOXIDE LEVEL 25 MEQ/L (21-32); CHLORIDE LEVEL 105 MEQ/L (98-107); CREATININE FOR GFR 0.79 MG/DL (0.55-1.30); GLOMERULAR FILTRATION RATE > 60.0 (>60); GLUCOSE, FASTING 87 MG/DL (70-100); POTASSIUM SERUM 3.7 MEQ/L (3.5-5.1); SODIUM LEVEL 139 MEQ/L (136-145)
[2018-08-20 22:43] LABS: ACETAMINOPHEN LEVEL < 2.0 UG/ML (10.0-30.0); ALBUMIN 4.5 GM/DL (3.2-5.2); ALT/SGPT 85 U/L (12-78); BILIRUBIN,DIRECT 0.2 MG/DL (0.0-0.2); BILIRUBIN,TOTAL 0.8 MG/DL (0.2-1.0); ETHYL ALCOHOL (ETHANOL) < 0.003 % (0.000-0.010); SALICYLATE LEVEL < 1.7 MG/DL (5.0-30.0); TOTAL PROTEIN 7.8 GM/DL (6.4-8.2)
[2018-08-21 05:12] VITALS: BP 127/69
--- NOTE | 2018-08-21 19:37 | ECGEPIP ---
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
== END 2018-08-21 05:16 | disposition short-term general hospital (02) ==
LOC: M ED 19:58
DX: F29 Unspecified psychosis not due to a substance or known physiological condition (principal); F31.9 Bipolar disorder, unspecified
CPT/HCPCS: 36415; 80048; 80076; 80307; 84443; 84703; 85027; 93005; 99285; G0480

== ENCOUNTER 2021-11-11 14:46 | Inpatient (IN) | payer MEDICAID, OTHER, SELFPAY ==
[~2021-11-11] VITALS: Ht 167.6 cm; Wt 103.2 kg
[~2021-11-11 14:46] MED LIST changes: -ARIP1TAB3 PO; +ARIP1TAB44 PO; +EMTR1TAB16 PO; +MIRT-62 PO; -REME15TA PO; +RISP-8 PO; -RISP1TAB3 PO; -TRAZ-163 PO; +TRAZ-257 PO; -TRUVTAB PO
[2021-11-11 16:00] LABS: HEMATOCRIT 42.3 % (36.0-47.0); HEMOGLOBIN 14.5 g/dl (12.0-15.5); MEAN CORPUSCULAR HEMOGLOBIN 28.9 pg (27.0-33.0); MEAN CORPUSCULAR HGB CONC 34.3 g/dl (32.0-36.5); MEAN CORPUSCULAR VOLUME 84.3 fl (80.0-96.0); PLATELET COUNT, AUTOMATED 367 10^3/uL (150-450); RED BLOOD COUNT 5.02 10^6/uL (4.00-5.40); WHITE BLOOD COUNT 9.6 10^3/uL (4.0-10.0)
[2021-11-11 16:27] LABS: HCG, SERUM QUALITATIVE NEGATIVE (NEGATIVE)
[2021-11-11 16:43] LABS: ACETAMINOPHEN LEVEL < 2.0 UG/ML (10.0-30.0); ALBUMIN 4.3 GM/DL (3.2-5.2); ALT/SGPT 122 U/L (12-78); AMPHETAMINES LEVEL URINE NEGATIVE (NEGATIVE); BARBITURATES URINE NEGATIVE (NEGATIVE); BENZODIAZEPINES URINE NEGATIVE (NEGATIVE); BILIRUBIN,DIRECT 0.2 MG/DL (0.0-0.2); BILIRUBIN,TOTAL 0.7 MG/DL (0.2-1.0); BLOOD UREA NITROGEN 12 MG/DL (7-18); CALCIUM LEVEL 9.5 MG/DL (8.5-10.1); CANNABINOIDS URINE POSITIVE (NEGATIVE); CARBON DIOXIDE LEVEL 20 MEQ/L (21-32); CHLORIDE LEVEL 111 MEQ/L (98-107); COCAINE METABOLITE URINE NEGATIVE (NEGATIVE); CREATININE FOR GFR 0.86 MG/DL (0.55-1.30); ETHYL ALCOHOL (ETHANOL) 0.003 % (0.000-0.010); GLOMERULAR FILTRATION RATE > 60.0 (>60); GLUCOSE, FASTING 91 MG/DL (70-100); METHADONE URINE NEGATIVE (NEGATIVE); OPIATES URINE NEGATIVE (NEGATIVE); PHENCYCLIDINE URINE NEGATIVE (NEGATIVE); POTASSIUM SERUM 4.1 MEQ/L (3.5-5.1); SALICYLATE LEVEL < 1.7 MG/DL (5.0-30.0); SODIUM LEVEL 140 MEQ/L (136-145); THYROID STIMULATING HORMONE 0.466 uIU/ML (0.358-3.740); TOTAL PROTEIN 8.1 GM/DL (6.4-8.2)
[2021-11-11] MEDS ORDERED: BIOT10TA2 PO (21:56)
[2021-11-11] MEDS ORDERED: MULT-40 PO (21:56)
[2021-11-11] MEDS ORDERED: HOME MED LIST COMPLETE! XX SCH (22:00)
[2021-11-11 22:01] LABS: RSV AMPLIFICATION NEGATIVE (NEGATIVE)
[2021-11-11] MEDS ORDERED: MULTIVITAMINS/MINERALS THERAP 1 TAB PO ONE (22:35)
[2021-11-12] MEDS ORDERED: diphenhydrAMINE 50MG CAP PO ONE (01:20)
[2021-11-13] MEDS ORDERED: diphenhydrAMINE 50MG CAP PO ONE ×2 (03:35→23:55)
[2021-11-14 13:11] LABS: RSV AMPLIFICATION NEGATIVE (NEGATIVE)
[2021-11-14] MEDS ORDERED: MAALOX 30 ML SUSP *UDC PO PRN (16:15)
[2021-11-14] MEDS ORDERED: NICOTINE 21MG/24HR 1 EA TRANSDERMAL TD PRN (16:15)
[2021-11-14] MEDS ORDERED: MOM 30ML SUSPENSION UDC PO PRN (16:15)
[2021-11-14] MEDS ORDERED: ARIPiprazole 10 MG TAB PO ONE (16:15)
[2021-11-14] MEDS ORDERED: ACETAMINOPHEN TAB 650MG DOSE (2X325MG) PO PRN (16:15)
[2021-11-14 20:21] VITALS: BP 150/104
[2021-11-14] MEDS: ARIPiprazole 10 MG TAB PO SCH (21:27)
[2021-11-14] MEDS ORDERED: LORazepam 1 MG TAB PO ONE (21:55)
[2021-11-14] MEDS ORDERED: LORazepam 0.5 MG TAB PO PRN (21:55)
[2021-11-15 06:41] VITALS: BP 122/78
[2021-11-15] MEDS: ARIPiprazole 10 MG TAB PO SCH ×2 (09:14→20:05)
[2021-11-15 18:30] VITALS: BP 135/83
[2021-11-15] MEDS: traZODone 50 MG TAB PO PRN (20:05)
[2021-11-16 06:50] VITALS: BP 115/81
[2021-11-16] MEDS: ARIPiprazole 10 MG TAB PO SCH (08:27)
[2021-11-16 18:00] VITALS: BP 173/111
[2021-11-16] MEDS ORDERED: ARIPiprazole 10 MG TAB PO SCH (21:00)
[2021-11-16] MEDS: traZODone 50 MG TAB PO PRN (21:22)
[2021-11-17 07:05] VITALS: BP 143/89
[2021-11-17 08:15] LABS: CHOLESTEROL RISK RATIO 3.19 (<5)
[2021-11-17] MEDS ORDERED: ARIPiprazole 10 MG TAB PO SCH (09:00)
[2021-11-17] MEDS ORDERED: ARIPiprazole MONOHYDRATE 400 MG INJ (ABILIFY)(FREE PSY INPT ONLY) IM ONE (15:00)
[2021-11-17] MEDS: OXcarbazepine 300 MG TAB PO SCH ×2 (16:17→21:00)
[2021-11-17 18:40] VITALS: BP 127/81
[2021-11-17] MEDS: traZODone 50 MG TAB PO PRN (21:09)
[2021-11-18 06:32] VITALS: BP 122/84
[2021-11-18] MEDS: OXcarbazepine 300 MG TAB PO SCH (08:29)
[2021-11-18] MEDS ORDERED: ARIPiprazole 10 MG TAB PO SCH (09:00)
[2021-11-18] MEDS ORDERED: ABIL1INJ2 IM (11:00)
[2021-11-18] MEDS ORDERED: TRAZ-252 PO (11:00)
[2021-11-18] MEDS ORDERED: ABIL10TA9 PO (11:00)
[2021-11-18] MEDS ORDERED: NICO21PAT TD (11:00)
== END 2021-11-18 13:00 | disposition home or self-care (01) | DRG 753 ==
LOC: M ED 14:46 → M ED INP 11-14 16:11 → M PSY 11-14 20:08
PROVIDERS: ADMIT Psychiatry & Neurology Psychiatry; ATTEND Student in an Organized Health Care Education/Training Program
DX: F31.9 Bipolar disorder, unspecified (principal); R45.851 Suicidal ideations; Z91.14 Patient's other noncompliance with medication regimen; F12.988 Cannabis use, unspecified with other cannabis-induced disorder; F17.200 Nicotine dependence, unspecified, uncomplicated; Z81.1 Family history of alcohol abuse and dependence; Z20.822 Contact with and (suspected) exposure to COVID-19

== ENCOUNTER 2022-05-15 12:23 | Inpatient (IN) | payer BC, SELFPAY ==
[~2022-05-15] VITALS: Ht 165.1 cm; Wt 98.8 kg
[~2022-05-15 12:23] MED LIST changes: +ABIL10TA9 PO; +ABIL1INJ2 IM; -BENZ-52 PO; +BENZ1TAB5 PO; +BIOT10TA2 PO; +MULT-40 PO; +NICO21PAT TD
[2022-05-15] MEDS ORDERED: LORazepam 2 MG/ML 1ML VIAL IM STA (12:28)
[2022-05-15] MEDS ORDERED: HALOPERIDOL 5MG/ML 1ML VIAL As Ordered ONE (12:30)
[2022-05-15] MEDS ORDERED: diphenhydrAMINE 50MG/ML VIAL IM ONE (12:30)
[2022-05-15] MEDS ORDERED: HALOPERIDOL 5MG/ML 1ML VIAL IM ONE (12:30)
[2022-05-15] MEDS ORDERED: diphenhydrAMINE 50MG/ML VIAL As Ordered ONE (12:30)
[2022-05-15] MEDS ORDERED: LORazepam 2 MG/ML 1ML VIAL As Ordered ONE (12:31)
[2022-05-15 13:01] LABS: BASO # 0.1 10^3/uL (0.0-0.2); BASO % 0.7 % (0.0-1.0); EOS # 0.1 10^3/uL (0.0-0.5); EOS % 1.4 % (0.0-3.0); HEMATOCRIT 40.8 % (36.0-47.0); HEMOGLOBIN 13.6 g/dl (12.0-15.5); LYMPH # 2.5 10^3/uL (1.5-5.0); MEAN CORPUSCULAR HEMOGLOBIN 28.8 pg (27.0-33.0); MEAN CORPUSCULAR HGB CONC 33.3 g/dl (32.0-36.5); MEAN CORPUSCULAR VOLUME 86.3 fl (80.0-96.0); MONO # 0.9 10^3/uL (0.0-0.8); MONO % 9.1 % (2.0-8.0); NEUTROPHILS % 62.5 % (36.0-66.0); PLATELET COUNT, AUTOMATED 364 10^3/uL (150-450); RED BLOOD COUNT 4.73 10^6/uL (4.00-5.40); WHITE BLOOD COUNT 9.6 10^3/uL (4.0-10.0)
[2022-05-15] MEDS ORDERED: LITH300C (13:01)
[2022-05-15 13:21] LABS: ETHYL ALCOHOL (ETHANOL) 0.007 % (0.000-0.010)
[2022-05-15 13:23] LABS: ACETAMINOPHEN LEVEL < 2.0 UG/ML (10.0-20.0); CPK CREATINE PHOSPHOKINASE 355 U/L (34-145); SALICYLATE LEVEL < 3.0 MG/DL (<30)
[2022-05-15 13:27] LABS: ALBUMIN 4.3 G/DL (3.2-5.2); ALKALINE PHOSPHATASE 84 U/L (46-116); ALT/SGPT 141 U/L (7.0-40); AST/SGOT 66 U/L (<34); BILIRUBIN,DIRECT 0.3 MG/DL (<0.4); BILIRUBIN,TOTAL 0.9 MG/DL (0.3-1.2); BLOOD UREA NITROGEN 15 MG/DL (9-23); CALCIUM LEVEL 9.7 MG/DL (8.5-10.1); CARBON DIOXIDE LEVEL 20 MMOL/L (20-31); CHLORIDE LEVEL 104 MMOL/L (98-107); CREATININE FOR GFR 0.96 MG/DL (0.55-1.30); GLOMERULAR FILTRATION RATE > 60.0 (>60); GLUCOSE, FASTING 114 MG/DL (60-100); POTASSIUM SERUM 4.1 MMOL/L (3.5-5.1); SODIUM LEVEL 138 MMOL/L (136-145); THYROID STIMULATING HORMONE 1.991 uIU/ML (0.55-4.78); TOTAL PROTEIN 7.7 G/DL (5.7-8.2)
[2022-05-15 13:34] LABS: HCG, SERUM QUALITATIVE NEGATIVE (NEGATIVE)
[2022-05-15 13:54] LABS: RSV AMPLIFICATION NEGATIVE (NEGATIVE)
[2022-05-15] MEDS: NS 1,000 ML IV SCH ×3 (15:11→20:30)
[2022-05-15] MEDS ORDERED: NICOTINE 21MG/24HR 1 EA TRANSDERMAL TD PRN (18:45)
[2022-05-15] MEDS ORDERED: MOM 30ML SUSPENSION UDC PO PRN (18:45)
[2022-05-15] MEDS ORDERED: MAALOX 30 ML SUSP *UDC PO PRN (18:45)
[2022-05-15] MEDS ORDERED: LITH300T2 PO ×2 (21:45)
[2022-05-15] MEDS ORDERED: PATIENT COMMENT (21:45)
[2022-05-15] MEDS ORDERED: HOME MED LIST COMPLETE! XX SCH (21:50)
[2022-05-16] MEDS ORDERED: ARIPiprazole 10 MG TAB PO SCH (09:00)
[2022-05-16] MEDS: OLANZapine ORAL DISINTEGRATING TAB 5MG PO PRN (09:33)
[2022-05-16] MEDS: LITHIUM CARBONATE 300 MG CAP PO SCH (12:57)
[2022-05-16] MEDS: PALIPERIDONE 3MG ER TAB (INVEGA) PO SCH (12:59)
[2022-05-16] MEDS: ACETAMINOPHEN TAB 650MG DOSE (2X325MG) PO PRN (16:48)
[2022-05-16 18:01] VITALS: BP 120/87
[2022-05-16] MEDS: LITHIUM CARBONATE 600MG CAP PO SCH (21:42)
[2022-05-17 06:20] VITALS: BP 152/88
[2022-05-17 06:58] LABS: CHOLESTEROL RISK RATIO 4.01 (<5); HDL CHOLESTEROL 29.9 MG/DL (>40); LDL CHOLESTEROL 78.1 MG/DL (<100)
[2022-05-17] MEDS: LITHIUM CARBONATE 300 MG CAP PO SCH (10:18)
[2022-05-17] MEDS: PALIPERIDONE 3MG ER TAB (INVEGA) PO SCH (10:19)
[2022-05-17] MEDS ORDERED: PALIPERIDONE PAL 234MG/1.5ML INJ (INVEGA)(FREE PSY INPT ONLY) IM ONE (13:00)
[2022-05-17 17:47] VITALS: BP 138/95
[2022-05-17] MEDS: LITHIUM CARBONATE 600MG CAP PO SCH (20:43)
[2022-05-17] MEDS: traZODone 50 MG TAB PO PRN (20:43)
[2022-05-17] MEDS: ACETAMINOPHEN TAB 650MG DOSE (2X325MG) PO PRN (20:44)
[2022-05-18 06:35] VITALS: BP 139/93
[2022-05-18] MEDS: ACETAMINOPHEN TAB 650MG DOSE (2X325MG) PO PRN ×2 (07:28→20:18)
[2022-05-18] MEDS: LITHIUM CARBONATE 300 MG CAP PO SCH (08:11)
[2022-05-18] MEDS ORDERED: PALIPERIDONE 3MG ER TAB (INVEGA) PO SCH ×2 (09:00)
[2022-05-18] MEDS: CARIPRAZINE 1.5MG CAPSULE (VRAYLAR) PO SCH (12:00)
[2022-05-18 18:07] VITALS: BP 132/88
[2022-05-18] MEDS: traZODone 50 MG TAB PO PRN (20:17)
[2022-05-18] MEDS: LITHIUM CARBONATE 600MG CAP PO SCH (20:17)
[2022-05-19 06:33] VITALS: BP 138/76
[2022-05-19] MEDS: CARIPRAZINE 1.5MG CAPSULE (VRAYLAR) PO SCH (09:13)
[2022-05-19] MEDS: LITHIUM CARBONATE 300 MG CAP PO SCH (09:13)
[2022-05-19] MEDS: OLANZapine ORAL DISINTEGRATING TAB 5MG PO PRN ×2 (09:42→18:00)
[2022-05-19] MEDS: ACETAMINOPHEN TAB 650MG DOSE (2X325MG) PO PRN (11:19)
[2022-05-19 18:32] VITALS: BP 158/80
[2022-05-19] MEDS ORDERED: PALIPERIDONE 3MG ER TAB (INVEGA) PO SCH ×2 (19:00→19:01)
[2022-05-19] MEDS: PALIPERIDONE 3MG ER TAB (INVEGA) PO SCH (19:12)
[2022-05-19] MEDS: LITHIUM CARBONATE 600MG CAP PO SCH (20:02)
[2022-05-19] MEDS ORDERED: HALOPERIDOL 5MG/ML 1ML VIAL IM STA (20:10)
[2022-05-19] MEDS ORDERED: LORazepam 2 MG/ML 1ML VIAL IM STA (20:10)
[2022-05-19 20:15] VITALS: BP 128/84
[2022-05-19 20:30] VITALS: BP 128/84
[2022-05-19 21:15] VITALS: BP 122/77
[2022-05-19] MEDS: IBUPROFEN 800 MG TAB PO SCH (22:08)
[2022-05-20] MEDS: OLANZapine ORAL DISINTEGRATING TAB 5MG PO PRN ×3 (06:55→21:16)
[2022-05-20] MEDS: CARIPRAZINE 1.5MG CAPSULE (VRAYLAR) PO SCH (09:09)
[2022-05-20] MEDS: IBUPROFEN 800 MG TAB PO SCH ×3 (09:10→21:17)
[2022-05-20] MEDS: LITHIUM CARBONATE 300 MG CAP PO SCH (09:11)
[2022-05-20] MEDS ORDERED: LORazepam 1 MG TAB PO STA (14:44)
[2022-05-20 18:26] VITALS: BP 140/92
[2022-05-20] MEDS: PALIPERIDONE 3MG ER TAB (INVEGA) PO SCH (19:07)
[2022-05-20] MEDS: LITHIUM CARBONATE 600MG CAP PO SCH (21:16)
[2022-05-21] MEDS: OLANZapine ORAL DISINTEGRATING TAB 5MG PO PRN ×2 (07:48→16:50)
[2022-05-21] MEDS: CARIPRAZINE 1.5MG CAPSULE (VRAYLAR) PO SCH (08:12)
[2022-05-21] MEDS: LITHIUM CARBONATE 300 MG CAP PO SCH (08:13)
[2022-05-21] MEDS: IBUPROFEN 800 MG TAB PO SCH ×2 (09:00→15:09)
[2022-05-21 18:39] VITALS: BP 150/86
[2022-05-21] MEDS: PALIPERIDONE 3MG ER TAB (INVEGA) PO SCH (19:37)
[2022-05-21] MEDS: LITHIUM CARBONATE 600MG CAP PO SCH (20:16)
[2022-05-22] MEDS: CARIPRAZINE 3MG CAPSULE (VRAYLAR) PO SCH ×2 (09:00→09:14)
[2022-05-22] MEDS: LITHIUM CARBONATE 300 MG CAP PO SCH (09:02)
[2022-05-22] MEDS ORDERED: PALIPERIDONE PAL 234MG/1.5ML INJ (INVEGA)(FREE PSY INPT ONLY) IM ONE (12:00)
[2022-05-22] MEDS: OLANZapine ORAL DISINTEGRATING TAB 5MG PO PRN ×2 (12:40→22:09)
[2022-05-22 16:41] VITALS: BP 139/82
[2022-05-22] MEDS: PALIPERIDONE 3MG ER TAB (INVEGA) PO SCH (18:48)
[2022-05-22] MEDS: LITHIUM CARBONATE 600MG CAP PO SCH (20:05)
[2022-05-22] MEDS: ACETAMINOPHEN TAB 650MG DOSE (2X325MG) PO PRN (20:06)
[2022-05-23] MEDS: OLANZapine ORAL DISINTEGRATING TAB 5MG PO PRN ×2 (08:50→09:06)
[2022-05-23] MEDS: ACETAMINOPHEN TAB 650MG DOSE (2X325MG) PO PRN (08:50)
[2022-05-23] MEDS: CARIPRAZINE 3MG CAPSULE (VRAYLAR) PO SCH ×2 (08:55→14:30)
[2022-05-23] MEDS: LITHIUM CARBONATE 300 MG CAP PO SCH ×2 (08:55→14:30)
[2022-05-23 16:23] VITALS: BP 135/65
[2022-05-23] MEDS: PALIPERIDONE 3MG ER TAB (INVEGA) PO SCH (18:23)
[2022-05-23] MEDS: LITHIUM CARBONATE 600MG CAP PO SCH (20:12)
[2022-05-24] MEDS: ACETAMINOPHEN TAB 650MG DOSE (2X325MG) PO PRN (06:52)
[2022-05-24] MEDS: CARIPRAZINE 3MG CAPSULE (VRAYLAR) PO SCH (09:09)
[2022-05-24] MEDS: LITHIUM CARBONATE 300 MG CAP PO SCH (09:09)
[2022-05-24] MEDS ORDERED: TUBERCULIN PPD 5 UNITS/0.1 ML ID ONE (16:10)
[2022-05-24] MEDS: **PENDING PPD ENTRY XX SCH (16:47)
[2022-05-24] MEDS: PALIPERIDONE 3MG ER TAB (INVEGA) PO SCH (18:58)
[2022-05-24] MEDS: LITHIUM CARBONATE 600MG CAP PO SCH (21:13)
[2022-05-25 06:22] VITALS: BP 146/88
[2022-05-25] MEDS: LITHIUM CARBONATE 300 MG CAP PO SCH (07:48)
[2022-05-25] MEDS: CARIPRAZINE 3MG CAPSULE (VRAYLAR) PO SCH (07:48)
[2022-05-25] MEDS ORDERED: PALIPERIDONE PAL 156MG/1ML INJ(INVEGA)(FREE PSY INPT ONLY) IM ONE ×2 (09:00→12:00)
[2022-05-25] MEDS: **PENDING PPD ENTRY XX SCH (09:00)
[2022-05-25] MEDS ORDERED: TUBERCULIN PPD 5 UNITS/0.1 ML ID ONE ×2 (10:00→12:00)
[2022-05-25] MEDS: ACETAMINOPHEN TAB 650MG DOSE (2X325MG) PO PRN (12:28)
[2022-05-25 17:38] VITALS: BP 152/86
[2022-05-25] MEDS: PALIPERIDONE 3MG ER TAB (INVEGA) PO SCH (18:00)
[2022-05-25] MEDS: LITHIUM CARBONATE 600MG CAP PO SCH (20:32)
[2022-05-26 06:19] VITALS: BP 141/72
[2022-05-26] MEDS: CARIPRAZINE 3MG CAPSULE (VRAYLAR) PO SCH (08:10)
[2022-05-26] MEDS: LITHIUM CARBONATE 300 MG CAP PO SCH (08:11)
[2022-05-26] MEDS ORDERED: PPD DOCUMENTATION ENTRY MISC XX SCH (10:00)
[2022-05-26] MEDS ORDERED: PPD DOCUMENTATION ENTRY MISC XX ONE (16:00)
[2022-05-26 16:16] VITALS: BP 135/76
[2022-05-26] MEDS: PALIPERIDONE 3MG ER TAB (INVEGA) PO SCH (18:42)
[2022-05-26] MEDS: LITHIUM CARBONATE 600MG CAP PO SCH (21:35)
[2022-05-26] MEDS: traZODone 50 MG TAB PO PRN (22:51)
[2022-05-27] MEDS: LITHIUM CARBONATE 300 MG CAP PO SCH (07:46)
[2022-05-27] MEDS: CARIPRAZINE 3MG CAPSULE (VRAYLAR) PO SCH (07:47)
[2022-05-27] MEDS ORDERED: PPD DOCUMENTATION ENTRY MISC XX ONE (12:00)
[2022-05-27 16:08] VITALS: BP 138/71
[2022-05-27] MEDS: PALIPERIDONE 3MG ER TAB (INVEGA) PO SCH (18:34)
[2022-05-27] MEDS: LITHIUM CARBONATE 600MG CAP PO SCH (20:39)
[2022-05-28] MEDS: traZODone 50 MG TAB PO PRN (01:41)
[2022-05-28] MEDS: CARIPRAZINE 3MG CAPSULE (VRAYLAR) PO SCH (08:57)
[2022-05-28] MEDS: LITHIUM CARBONATE 300 MG CAP PO SCH (08:57)
[2022-05-28 15:56] VITALS: BP 127/80
[2022-05-28] MEDS: PALIPERIDONE 3MG ER TAB (INVEGA) PO SCH (19:01)
[2022-05-28] MEDS: LITHIUM CARBONATE 600MG CAP PO SCH (20:38)
[2022-05-29 06:53] VITALS: BP 116/69
[2022-05-29] MEDS: CARIPRAZINE 3MG CAPSULE (VRAYLAR) PO SCH (08:12)
[2022-05-29] MEDS: LITHIUM CARBONATE 300 MG CAP PO SCH (08:12)
[2022-05-29 17:27] VITALS: BP 123/57
[2022-05-29] MEDS: PALIPERIDONE 3MG ER TAB (INVEGA) PO SCH (19:03)
[2022-05-29] MEDS: LITHIUM CARBONATE 600MG CAP PO SCH (21:13)
[2022-05-29] MEDS: traZODone 50 MG TAB PO PRN (23:41)
[2022-05-30 06:21] VITALS: BP 132/85
[2022-05-30] MEDS: CARIPRAZINE 3MG CAPSULE (VRAYLAR) PO SCH (08:34)
[2022-05-30] MEDS: LITHIUM CARBONATE 300 MG CAP PO SCH (08:34)
[2022-05-30] MEDS: PALIPERIDONE 3MG ER TAB (INVEGA) PO SCH (18:02)
[2022-05-30 18:21] VITALS: BP 136/76
[2022-05-30] MEDS: RAMELTEON 8 MG TAB (ROZEREM) PO SCH (20:22)
[2022-05-30] MEDS: LITHIUM CARBONATE 600MG CAP PO SCH (20:22)
[2022-05-30 22:58] VITALS: BP 131/69
[2022-05-30] MEDS ORDERED: CHLORASEPTIC SPRAY MT PRN (23:20)
[2022-05-31 01:21] LABS: RSV AMPLIFICATION NEGATIVE (NEGATIVE)
[2022-05-31 06:32] VITALS: BP 121/65
[2022-05-31] MEDS: LITHIUM CARBONATE 300 MG CAP PO SCH (07:57)
[2022-05-31] MEDS: CARIPRAZINE 3MG CAPSULE (VRAYLAR) PO SCH (07:57)
[2022-05-31] MEDS: ACETAMINOPHEN TAB 650MG DOSE (2X325MG) PO PRN (14:11)
[2022-05-31 17:32] VITALS: BP 140/81
[2022-05-31] MEDS: PALIPERIDONE 3MG ER TAB (INVEGA) PO SCH (18:24)
[2022-05-31] MEDS: RAMELTEON 8 MG TAB (ROZEREM) PO SCH (20:00)
[2022-05-31] MEDS: LITHIUM CARBONATE 600MG CAP PO SCH (20:00)
[2022-06-01 06:43] VITALS: BP 141/68
[2022-06-01] MEDS: LITHIUM CARBONATE 300 MG CAP PO SCH (08:11)
[2022-06-01] MEDS: CARIPRAZINE 3MG CAPSULE (VRAYLAR) PO SCH (08:11)
[2022-06-01] MEDS: PALIPERIDONE 3MG ER TAB (INVEGA) PO SCH (18:03)
[2022-06-01 18:06] VITALS: BP 153/77
[2022-06-01] MEDS: RAMELTEON 8 MG TAB (ROZEREM) PO SCH (20:07)
[2022-06-01] MEDS: LITHIUM CARBONATE 600MG CAP PO SCH (20:07)
[2022-06-02] MEDS: CARIPRAZINE 3MG CAPSULE (VRAYLAR) PO SCH (08:16)
[2022-06-02] MEDS: LITHIUM CARBONATE 300 MG CAP PO SCH (08:16)
[2022-06-02 17:49] VITALS: BP 141/60
[2022-06-02] MEDS: PALIPERIDONE 3MG ER TAB (INVEGA) PO SCH (18:32)
[2022-06-02] MEDS: RAMELTEON 8 MG TAB (ROZEREM) PO SCH (20:00)
[2022-06-02] MEDS: LITHIUM CARBONATE 600MG CAP PO SCH (20:00)
[2022-06-03 06:42] VITALS: BP 132/73
[2022-06-03] MEDS: CARIPRAZINE 3MG CAPSULE (VRAYLAR) PO SCH (08:04)
[2022-06-03] MEDS: LITHIUM CARBONATE 300 MG CAP PO SCH (08:06)
[2022-06-03] MEDS: CEPHALEXIN 500 MG CAP PO SCH ×4 (10:15→23:38)
[2022-06-03 18:19] VITALS: BP 133/83
[2022-06-03] MEDS: PALIPERIDONE 3MG ER TAB (INVEGA) PO SCH (18:39)
[2022-06-03] MEDS: LITHIUM CARBONATE 600MG CAP PO SCH (20:01)
[2022-06-03] MEDS: RAMELTEON 8 MG TAB (ROZEREM) PO SCH (20:01)
[2022-06-04] MEDS: CEPHALEXIN 500 MG CAP PO SCH ×4 (05:32→23:13)
[2022-06-04 06:06] VITALS: BP 122/71
[2022-06-04] MEDS: CARIPRAZINE 3MG CAPSULE (VRAYLAR) PO SCH (08:28)
[2022-06-04] MEDS: LITHIUM CARBONATE 300 MG CAP PO SCH (08:29)
[2022-06-04 16:05] VITALS: BP 137/72
[2022-06-04] MEDS: PALIPERIDONE 3MG ER TAB (INVEGA) PO SCH (18:03)
[2022-06-04] MEDS: LITHIUM CARBONATE 600MG CAP PO SCH (20:02)
[2022-06-04] MEDS: RAMELTEON 8 MG TAB (ROZEREM) PO SCH (20:02)
[2022-06-05] MEDS: CEPHALEXIN 500 MG CAP PO SCH (05:50)
[2022-06-05 06:20] VITALS: BP 141/78
[2022-06-05] MEDS: LITHIUM CARBONATE 300 MG CAP PO SCH (07:58)
[2022-06-05] MEDS: CARIPRAZINE 3MG CAPSULE (VRAYLAR) PO SCH (07:59)
[2022-06-05] MEDS ORDERED: VRAY3CAP PO ×2 (10:35→10:39)
[2022-06-05] MEDS ORDERED: CEPH500C PO ×2 (10:35→10:39)
[2022-06-05] MEDS ORDERED: INVE9TAB PO ×2 (10:35→10:39)
[2022-06-05] MEDS ORDERED: NICO21PAT TD ×2 (10:35→10:39)
[2022-06-05] MEDS ORDERED: LITH600C PO ×2 (10:35→10:39)
[2022-06-05] MEDS ORDERED: RAME8TAB2 PO ×2 (10:35→10:39)
[2022-06-05] MEDS ORDERED: INVE234I IM (10:39)
== END 2022-06-05 11:43 | disposition home or self-care (01) | DRG 753 ==
LOC: M ED 12:23 → M ED INP 18:45 → M PSY 23:30
PROVIDERS: ADMIT Psychiatry & Neurology Psychiatry; ATTEND Student in an Organized Health Care Education/Training Program
DX: F31.9 Bipolar disorder, unspecified (principal); Z91.14 Patient's other noncompliance with medication regimen; F17.200 Nicotine dependence, unspecified, uncomplicated; M79.671 Pain in right foot; M79.672 Pain in left foot; R74.01 Elevation of levels of liver transaminase levels; M72.2 Plantar fascial fibromatosis; Z62.810 Personal history of physical and sexual abuse in childhood; L03.012 Cellulitis of left finger; Z81.1 Family history of alcohol abuse and dependence; Z56.0 Unemployment, unspecified; Z79.899 Other long term (current) drug therapy; Z91.51 Personal history of suicidal behavior

== ENCOUNTER → 2022-10-06 | Outpatient (CLI) | payer OTHER ==
[~2022-10-06] MED LIST changes: +CEPH500C PO; +INVE234I IM; +INVE9TAB PO; +LITH300C; +LITH300T2 PO; +LITH600C PO; +RAME8TAB2 PO; +VRAY3CAP PO
[2022-10-06 09:45] LABS: BASO # 0.1 10^3/uL (0.0-0.2); BASO % 0.6 % (0.0-1.0); EOS # 0.3 10^3/uL (0.0-0.5); EOS % 3.1 % (0.0-3.0); HEMOGLOBIN 13.5 g/dl (12.0-15.5); MEAN CORPUSCULAR HEMOGLOBIN 28.4 pg (27.0-33.0); MEAN CORPUSCULAR HGB CONC 32.9 g/dl (32.0-36.5); MEAN CORPUSCULAR VOLUME 86.3 fl (80.0-96.0); MONO # 0.7 10^3/uL (0.0-0.8); MONO % 6.6 % (2.0-8.0); NEUTROPHILS % 59.4 % (36.0-66.0); PLATELET COUNT, AUTOMATED 400 10^3/uL (150-450); RED BLOOD COUNT 4.75 10^6/uL (4.00-5.40); WHITE BLOOD COUNT 10.1 10^3/uL (4.0-10.0)
[2022-10-06 10:08] LABS: HEMOGLOBIN A1c 5.2 % (4.0-6.0)
[2022-10-06 10:23] LABS: ALBUMIN 3.4 G/DL (3.2-5.2); ALKALINE PHOSPHATASE 100 U/L (46-116); ALT/SGPT 254 U/L (7.0-40); AST/SGOT 65 U/L (<34); BILIRUBIN,TOTAL 0.2 MG/DL (0.3-1.2); BLOOD UREA NITROGEN 6 MG/DL (9-23); CALCIUM LEVEL 8.9 MG/DL (8.5-10.1); CARBON DIOXIDE LEVEL 22 MMOL/L (20-31); CHLORIDE LEVEL 109 MMOL/L (98-107); CHOLESTEROL LEVEL 92 MG/DL (<200); CHOLESTEROL RISK RATIO 3.17 (<5); CREATININE FOR GFR 0.58 MG/DL (0.55-1.30); GLOMERULAR FILTRATION RATE > 60.0 (>60); GLUCOSE, FASTING 103 MG/DL (60-100); LDL CHOLESTEROL 45.6 MG/DL (<100); LITHIUM LEVEL 0.63 MMOL/L (1.0-1.20); POTASSIUM SERUM 4.2 MMOL/L (3.5-5.1); SODIUM LEVEL 138 MMOL/L (136-145); TOTAL PROTEIN 6.9 G/DL (5.7-8.2); TRIGLYCERIDES LEVEL 87 MG/DL (<150)
[2022-10-06 10:35] LABS: THYROID STIMULATING HORMONE 1.349 uIU/ML (0.55-4.78)
[2022-10-06 10:59] LABS: PROLACTIN 35.16 NG/ML
== END ==
LOC: M LAB 09:05
PROVIDERS: ATTEND Physician Assistant
DX: Z79.899 Other long term (current) drug therapy (principal)

== ENCOUNTER → 2022-12-05 | Outpatient (CLI) | payer MEDICAID ==
[~2022-12-05] MED LIST changes: -MIRT-62 PO; +MIRT-88 PO
== END ==
LOC: M OUTALCOH 07:24
PROVIDERS: ATTEND Psychiatry & Neurology Psychiatry
DX: F10.10 Alcohol abuse, uncomplicated (principal)

== ENCOUNTER → 2023-04-13 | Outpatient (CLI) | payer OTHER ==
[~2023-04-13] MED LIST changes: +LITH300C PO; +PALI1TAB2 PO; +QUET100T2 PO; +RISP-105 PO; -RISP-8 PO
[2023-04-13 12:06] LABS: BASO # 0.1 10^3/uL (0.0-0.2); BASO % 0.6 % (0.0-1.0); EOS # 0.2 10^3/uL (0.0-0.5); HEMATOCRIT 42.6 % (36.0-47.0); HEMOGLOBIN 14.1 g/dl (12.0-15.5); LYMPH % 27.2 % (24.0-44.0); MEAN CORPUSCULAR HEMOGLOBIN 28.5 pg (27.0-33.0); MEAN CORPUSCULAR HGB CONC 33.1 g/dl (32.0-36.5); MEAN CORPUSCULAR VOLUME 86.1 fl (80.0-96.0); MONO # 0.9 10^3/uL (0.0-0.8); MONO % 7.8 % (2.0-8.0); NEUTROPHILS # 6.7 10^3/uL (1.5-8.5); PLATELET COUNT, AUTOMATED 373 10^3/uL (150-450); RED BLOOD COUNT 4.95 10^6/uL (4.00-5.40); WHITE BLOOD COUNT 10.8 10^3/uL (4.0-10.0)
[2023-04-13 12:23] LABS: HEMOGLOBIN A1c 5.4 % (4.0-6.0)
[2023-04-13 12:32] LABS: ALBUMIN 3.9 G/DL (3.2-5.2); ALKALINE PHOSPHATASE 106 U/L (46-116); ALT/SGPT 387 U/L (7.0-40); AST/SGOT 189 U/L (<34); BILIRUBIN,TOTAL 0.7 MG/DL (0.3-1.2); BLOOD UREA NITROGEN 7 MG/DL (9-23); CALCIUM LEVEL 9.3 MG/DL (8.5-10.1); CARBON DIOXIDE LEVEL 23 MMOL/L (20-31); CHLORIDE LEVEL 104 MMOL/L (98-107); CHOLESTEROL LEVEL 164 MG/DL (<200); CHOLESTEROL RISK RATIO 3.85 (<5); CREATININE FOR GFR 0.67 MG/DL (0.55-1.30); GLOMERULAR FILTRATION RATE > 60.0 (>60); GLUCOSE, FASTING 92 MG/DL (60-100); HDL CHOLESTEROL 42.5 MG/DL (>40); LDL CHOLESTEROL 105.5 MG/DL (<100); NON-HDL-C 121.5 MG/DL; POTASSIUM SERUM 4.3 MMOL/L (3.5-5.1); SODIUM LEVEL 135 MMOL/L (136-145); TOTAL PROTEIN 7.6 G/DL (5.7-8.2); TRIGLYCERIDES LEVEL 80 MG/DL (<150)
[2023-04-13 12:33] LABS: TOTAL 25(OH) VITAMIN D 14.3 NG/ML (20.0-100.0)
[2023-04-13 13:11] LABS: HEPATITIS C VIRUS ABY INDEX < 0.02 INDEX (<0.8)
[2023-04-13 13:12] LABS: HEPATITIS B CORE ANTIBODY IGM NEGATIVE (NEGATIVE)
== END ==
LOC: M LAB 10:54
PROVIDERS: ATTEND Nurse Practitioner Family
DX: E55.9 Vitamin D deficiency, unspecified (principal); E78.2 Mixed hyperlipidemia; F31.9 Bipolar disorder, unspecified; R74.8 Abnormal levels of other serum enzymes; R73.01 Impaired fasting glucose

== ENCOUNTER → 2023-04-13 | Outpatient (CLI) | payer OTHER ==
[2023-04-13 12:33] LABS: BLOOD UREA NITROGEN 8 MG/DL (9-23); CALCIUM LEVEL 9.6 MG/DL (8.5-10.1); CARBON DIOXIDE LEVEL 24 MMOL/L (20-31); CHLORIDE LEVEL 105 MMOL/L (98-107); CREATININE FOR GFR 0.65 MG/DL (0.55-1.30); GLOMERULAR FILTRATION RATE > 60.0 (>60); GLUCOSE, FASTING 93 MG/DL (60-100); LITHIUM LEVEL 0.64 MMOL/L (1.0-1.20); POTASSIUM SERUM 4.3 MMOL/L (3.5-5.1); SODIUM LEVEL 134 MMOL/L (136-145)
[2023-04-13 12:34] LABS: THYROID STIMULATING HORMONE 2.449 uIU/ML (0.55-4.78)
[2023-04-13 12:35] LABS: T UPTAKE 27.9 % (22.5-37.0)
[2023-04-13 15:48] LABS: FREE THYROXINE INDEX 3.3 % (1.3-4.8); THYROXINE (T4) 11.7 UG/DL (4.5-10.9)
== END ==
LOC: M LAB 10:58
PROVIDERS: ATTEND Psychiatry & Neurology Psychiatry
DX: Z51.81 Encounter for therapeutic drug level monitoring (principal)